=== PATIENT | female | born 1990 | race Caucasian/White ===

== ENCOUNTER 2017-02-10 16:16 | Emergency (ER) | payer OTHER ==
[2017-02-10 16:33] VITALS: RESP 18
[2017-02-10] MEDS ORDERED: ACETAMINOPHEN IV (For NPO) 1,000 MG in EMPTY BAG 1 BAG IVPB STA (16:43)
[2017-02-10] MEDS ORDERED: SODIUM CHLORIDE 0.9% 500 ML IV ONE (16:44)
[2017-02-10 16:45] LABS: Glucose,Whole Blood 60 mg/dL (75-99)
[2017-02-10 16:45] LABS: Glucose,Whole Blood 64 mg/dL (75-99)
[2017-02-10] MEDS ORDERED: SODIUM CHLORIDE 0.9% 1,000 ML IV ONE ×3 (16:51→19:35)
--- NOTE | 2017-02-10 16:57 | ED ---
General Adult HPI - General Chief complaint: Recheck/Abnormal Lab/Rx Stated complaint: Hyperglycemia Time Seen by Provider: 02/10/17 16:37 Source: patient Mode of arrival: ambulatory - History of Present Illness Initial comments: 26-year-old female patient past medical history of type 1 diabetes mellitus presents to emergency department for concerns of possible DKA. Patient states that she has been sick for 2 days with upper respiratory symptoms including sore throat, persistent cough, and nasal drainage. Patient states that today she has taken her blood sugar and her monitor read high multiple times. Patient states that she did increased dosage of insulin on her insulin pump, but her sugar remained elevated over 500. Patient also has been nauseated today with two episodes of vomiting. Patient is currently febrile, she was unaware that she had a fever, but states that she has had chills. Son is currently ill with similar upper respiratory symptoms. Patient states that she does have some chest pain and upper back pain with cough. She denies any abdominal pain, constipation, diarrhea, hematuria, dysuria, urgency or frequency. - Related Data Home Medications Medication Instructions Recorded Confirmed D-Methorphan/PE/Acetaminophen 1 tab PO DAILY PRN 02/10/17 02/10/17 [Tylenol Cold Max Day Caplet] Ibuprofen [Motrin] 200 - 400 mg PO Q6HR PRN 02/10/17 02/10/17 Insulin Aspart (For Pump) [NovoLOG 0.01 unit SQ-PUMP CONTINUOUS 02/10/17 (For Pump)] guaiFENesin [Mucinex] 600 mg PO BID PRN 02/10/17 02/10/17 Previous Rx's Medication Instructions Recorded Ondansetron Odt [Zofran Odt] 4 mg PO Q8HR PRN #10 tab 02/10/17 Oseltamivir [Tamiflu] 75 mg PO Q12HR #10 cap 02/10/17 Allergies Allergy/AdvReac Type Severity Reaction Status Date / Time No Known Allergies Allergy Verified 02/10/17 17:05 Review of Systems ROS Statement: Those systems with pertinent positive or pertinent negative responses have been documented in the HPI. ROS Other: All systems not noted in ROS Statement are negative. Past Medical History Past Medical History: Diabetes Mellitus, Hyperlipidemia, Hypertension Additional Past Medical History / Comment(s): divertulitis, ovarian cysts, migraines History of Any Multi-Drug Resistant Organisms: None Reported Past Surgical History: Section Past Psychological History: ADD/ADHD, Anxiety Smoking Status: Never smoker Past Alcohol Use History: None Reported Past Drug Use History: None Reported General Exam Limitations: no limitations General appearance: alert, in no apparent distress Head exam: Present: atraumatic, normocephalic Eye exam: Present: normal appearance, PERRL, EOMI. Absent: scleral icterus, conjunctival injection, nystagmus Pupils: Present: normal accommodation ENT exam: Present: normal exam, mucous membranes moist, TM's normal bilaterally , normal external ear exam. Absent: normal oropharynx (Pharyngeal erythema, tonsils hypertrophied), mucous membranes dry Neck exam: Present: normal inspection, full ROM. Absent: tenderness, meningismus, lymphadenopathy, thyromegaly Respiratory exam: Present: normal lung sounds bilaterally. Absent: respiratory distress, wheezes, rales, rhonchi, stridor, chest wall tenderness, accessory muscle use Cardiovascular Exam: Present: normal rhythm, tachycardia, normal heart sounds. Absent: irregular rhythm, systolic murmur, diastolic murmur, rubs, gallop, clicks GI/Abdominal exam: Present: soft, normal bowel sounds. Absent: distended, tenderness, guarding, rebound, rigid, organomegaly, mass, hernia Extremities exam: Present: normal inspection Back exam: Present: normal inspection. Absent: CVA tenderness (R), CVA tenderness (L) Neurological exam: Present: alert, oriented X3 Psychiatric exam: Present: normal affect, normal mood Skin exam: Present: warm, dry, intact Course Vital Signs 02/10/17 02/10/17 02/10/17 16:28 17:49 18:42 Temperature 102.3 F H 101.1 F H Pulse Rate 151 H 130 H 126 H Respiratory 18 18 18 Rate Blood Pressure 102/65 146/63 O2 Sat by Pulse 98 98 Oximetry EKG Findings - EKG Comments: EKG Findings:: EKG obtained at 1935 reveals sinus tachycardia with a ventricular rate of 126, IA interval 130, QRS duration 80, QT 310, QTc 448. No ST elevation or depression. Medical Decision Making - Medical Decision Making 26-year-old female patient presented to emergency department today for concerns of hyperglycemia, and upper respiratory symptoms. During her visit she was found to be febrile and is found to have hypoglycemia due to self correction with insulin pump, was given juice and snacks and repeat glucose monitoring performed. Most recent blood sugar was 197. Patient serum lab's were unremarkable, acetone negative. Patient was positive for influenza B. Temperature and vital signs improved. Patient was given additional fluids and ibuprofen Patient will be discharged home with a prescription for Tamiflu. Directions for close monitoring of blood sugar. Patient instructed to follow up with her primary care provider tomorrow for a recheck. Patient verbalizes understanding and agrees this plan. - Lab Data Result diagrams: 02/10/17 17:15 02/10/17 17:15 Lab Results 02/10/17 02/10/17 02/10/17 Range/Units 16:39 16:40 17:12 WBC (3.8-10.6) k/uL RBC (3.80-5.40) m/uL Hgb (11.4-16.0) gm/dL Hct (34.0-46.0) % MCV (80.0-100.0) fL MCH (25.0-35.0) pg MCHC (31.0-37.0) g/dL RDW (11.5-15.5) % Plt Count (150-450) k/uL Neutrophils % % Lymphocytes % % Monocytes % % Eosinophils % % Basophils % % Neutrophils # (1.3-7.7) k/uL Lymphocytes # (1.0-4.8) k/uL Monocytes # (0-1.0) k/uL Eosinophils # (0-0.7) k/uL Basophils # (0-0.2) k/uL Sodium (137-145) mmol/L Potassium (3.5-5.1) mmol/L Chloride (98-107) mmol/L Carbon Dioxide (22-30) mmol/L Anion Gap mmol/L BUN (7-17) mg/dL Creatinine (0.52-1.04) mg/dL Est GFR (MDRD) Af Amer (>60 ml/min/1.73 sqM) Est GFR (MDRD) Non-Af (>60 ml/min/1.73 sqM) Glucose (74-99) mg/dL POC Glucose (mg/dL) 60 L 64 L 57 L (75-99) mg/dL POC Glu Mac Operator Deena Sibleyer, Deena Vinicius, Deena Calcium (8.4-10.2) mg/dL Total Bilirubin (0.2-1.3) mg/dL AST (14-36) U/L ALT (9-52) U/L Alkaline Phosphatase (38-126) U/L Total Protein (6.3-8.2) g/dL Albumin (3.5-5.0) g/dL Urine Color Urine Appearance (Clear) Urine pH (5.0-8.0) Ur Specific [place] (1.001-1.035) Urine Protein (Negative) Urine Glucose (UA) (Negative) Urine Ketones (Negative) Urine Blood (Negative) Urine Nitrate (Negative) Urine Bilirubin (Negative) Urine Urobilinogen (<2.0) mg/dL Ur Leukocyte Esterase (Negative) Urine RBC (0-5) /hpf Urine WBC (0-5) /hpf Ur Squamous Epith Cells (0-4) /hpf Urine Bacteria (None) /hpf Hyaline Casts (0-2) /lpf Urine Mucus (None) /hpf Acetone, Qual (Negative) Influenza Type A RNA (Not Detectd) Influenza Type B (PCR) (Not Detectd) 02/10/17 02/10/17 02/10/17 Range/Units 17:15 17:15 17:15 WBC 5.9 (3.8-10.6) k/uL RBC 4.56 (3.80-5.40) m/uL Hgb 14.2 (11.4-16.0) gm/dL Hct 43.6 (34.0-46.0) % MCV 95.7 (80.0-100.0) fL MCH 31.2 (25.0-35.0) pg MCHC 32.6 (31.0-37.0) g/dL RDW 12.1 (11.5-15.5) % Plt Count 318 (150-450) k/uL Neutrophils % 88 % Lymphocytes % 7 % Monocytes % 5 % Eosinophils % 0 % Basophils % 1 % Neutrophils # 5.1 (1.3-7.7) k/uL Lymphocytes # 0.4 L (1.0-4.8) k/uL Monocytes # 0.3 (0-1.0) k/uL Eosinophils # 0.0 (0-0.7) k/uL Basophils # 0.0 (0-0.2) k/uL Sodium 140 (137-145) mmol/L Potassium 4.1 (3.5-5.1) mmol/L Chloride 101 (98-107) mmol/L Carbon Dioxide 27 (22-30) mmol/L Anion Gap 12 mmol/L BUN 3 L (7-17) mg/dL Creatinine 0.69 (0.52-1.04) mg/dL Est GFR (MDRD) Af Amer >60 (>60 ml/min/1.73 sqM) Est GFR (MDRD) Non-Af >60 (>60 ml/min/1.73 sqM) Glucose 73 L (74-99) mg/dL POC Glucose (mg/dL) (75-99) mg/dL POC Glu Mac Operator ID Calcium 9.9 (8.4-10.2) mg/dL Total Bilirubin 0.4 (0.2-1.3) mg/dL AST 33 (14-36) U/L ALT 32 (9-52) U/L Alkaline Phosphatase 93 (38-126) U/L Total Protein 8.6 H (6.3-8.2) g/dL Albumin 4.6 (3.5-5.0) g/dL Urine Color Urine Appearance (Clear) Urine pH (5.0-8.0) Ur Specific [place] (1.001-1.035) Urine Protein (Negative) Urine Glucose (UA) (Negative) Urine Ketones (Negative) Urine Blood (Negative) Urine Nitrate (Negative) Urine Bilirubin (Negative) Urine Urobilinogen (<2.0) mg/dL Ur Leukocyte Esterase (Negative) Urine RBC (0-5) /hpf Urine WBC (0-5) /hpf Ur Squamous Epith Cells (0-4) /hpf Urine Bacteria (None) /hpf Hyaline Casts (0-2) /lpf Urine Mucus (None) /hpf Acetone, Qual Negative (Negative) Influenza Type A RNA Not Detected (Not Detectd) Influenza Type B (PCR) Detected H (Not Detectd) 02/10/17 02/10/17 02/10/17 Range/Units 17:20 17:44 18:31 WBC (3.8-10.6) k/uL RBC (3.80-5.40) m/uL Hgb (11.4-16.0) gm/dL Hct (34.0-46.0) % MCV (80.0-100.0) fL MCH (25.0-35.0) pg MCHC (31.0-37.0) g/dL RDW (11.5-15.5) % Plt Count (150-450) k/uL Neutrophils % % Lymphocytes % % Monocytes % % Eosinophils % % Basophils % % Neutrophils # (1.3-7.7) k/uL Lymphocytes # (1.0-4.8) k/uL Monocytes # (0-1.0) k/uL Eosinophils # (0-0.7) k/uL Basophils # (0-0.2) k/uL Sodium (137-145) mmol/L Potassium (3.5-5.1) mmol/L Chloride (98-107) mmol/L Carbon Dioxide (22-30) mmol/L Anion Gap mmol/L BUN (7-17) mg/dL Creatinine (0.52-1.04) mg/dL Est GFR (MDRD) Af Amer (>60 ml/min/1.73 sqM) Est GFR (MDRD) Non-Af (>60 ml/min/1.73 sqM) Glucose (74-99) mg/dL POC Glucose (mg/dL) 108 H 197 H (75-99) mg/dL POC Glu Mac Operator ID Vinicius Deena Lonnie Cecille Calcium (8.4-10.2) mg/dL Total Bilirubin (0.2-1.3) mg/dL AST (14-36) U/L ALT (9-52) U/L Alkaline Phosphatase (38-126) U/L Total Protein (6.3-8.2) g/dL Albumin (3.5-5.0) g/dL Urine Color Yellow Urine Appearance Cloudy H (Clear) Urine pH 6.0 (5.0-8.0) Ur Specific [place] 1.029 (1.001-1.035) Urine Protein 1+ H (Negative) Urine Glucose (UA) 1+ H (Negative) Urine Ketones Trace H (Negative) Urine Blood Negative (Negative) Urine Nitrate Negative (Negative) Urine Bilirubin Negative (Negative) Urine Urobilinogen <2.0 (<2.0) mg/dL Ur Leukocyte Esterase Negative (Negative) Urine RBC 1 (0-5) /hpf Urine WBC 3 (0-5) /hpf Ur Squamous Epith Cells 4 (0-4) /hpf Urine Bacteria Rare H (None) /hpf Hyaline Casts 3 H (0-2) /lpf Urine Mucus Occasional H (None) /hpf Acetone, Qual (Negative) Influenza Type A RNA (Not Detectd) Influenza Type B (PCR) (Not Detectd) 02/10/17 Range/Units 20:06 WBC (3.8-10.6) k/uL RBC (3.80-5.40) m/uL Hgb (11.4-16.0) gm/dL Hct (34.0-46.0) % MCV (80.0-100.0) fL MCH (25.0-35.0) pg MCHC (31.0-37.0) g/dL RDW (11.5-15.5) % Plt Count (150-450) k/uL Neutrophils % % Lymphocytes % % Monocytes % % Eosinophils % % Basophils % % Neutrophils # (1.3-7.7) k/uL Lymphocytes # (1.0-4.8) k/uL Monocytes # (0-1.0) k/uL Eosinophils # (0-0.7) k/uL Basophils # (0-0.2) k/uL Sodium (137-145) mmol/L Potassium (3.5-5.1) mmol/L Chloride (98-107) mmol/L Carbon Dioxide (22-30) mmol/L Anion Gap mmol/L BUN (7-17) mg/dL Creatinine (0.52-1.04) mg/dL Est GFR (MDRD) Af Amer (>60 ml/min/1.73 sqM) Est GFR (MDRD) Non-Af (>60 ml/min/1.73 sqM) Glucose (74-99) mg/dL POC Glucose (mg/dL) 235 H (75-99) mg/dL POC Glu Mac Operator ID Anger, Isabel Calcium (8.4-10.2) mg/dL Total Bilirubin (0.2-1.3) mg/dL AST (14-36) U/L ALT (9-52) U/L Alkaline Phosphatase (38-126) U/L Total Protein (6.3-8.2) g/dL Albumin (3.5-5.0) g/dL Urine Color Urine Appearance (Clear) Urine pH (5.0-8.0) Ur Specific [place] (1.001-1.035) Urine Protein (Negative) Urine Glucose (UA) (Negative) Urine Ketones (Negative) Urine Blood (Negative) Urine Nitrate (Negative) Urine Bilirubin (Negative) Urine Urobilinogen (<2.0) mg/dL Ur Leukocyte Esterase (Negative) Urine RBC (0-5) /hpf Urine WBC (0-5) /hpf Ur Squamous Epith Cells (0-4) /hpf Urine Bacteria (None) /hpf Hyaline Casts (0-2) /lpf Urine Mucus (None) /hpf Acetone, Qual (Negative) Influenza Type A RNA (Not Detectd) Influenza Type B (PCR) (Not Detectd) Disposition Clinical Impression: Hypoglycemia, Influenza B Disposition: HOME SELF-CARE Condition: Stable Instructions: Hypoglycemia in a Person with Diabetes (ED), Diabetic Hyperglycemia (ED), Influenza (ED) Additional Instructions: Take Tamiflu as directed. Increase fluids. Closely monitor blood sugars. Return for any new, worsening, or concerning symptoms. Prescriptions: Ondansetron Odt [Zofran Odt] 4 mg PO Q8HR PRN #10 tab PRN Reason: Nausea Oseltamivir [Tamiflu] 75 mg PO Q12HR #10 cap Referrals: Jevon Julian MD [Primary Care Provider] - 1-2 days Time of Disposition: 20:03
[2017-02-10 17:14] LABS: Glucose,Whole Blood 57 mg/dL (75-99)
[2017-02-10 17:42] LABS: Appearance,Urine Cloudy (Clear); Bacteria,Urine Rare /hpf; Bilirubin,Urine Negative (Negative); Glucose,Urine (UA) 1+ (Negative); Ketones,Urine Trace (Negative); Leukocyte Esterase,Urine Negative (Negative); Mucus,Urine Occasional /hpf; Nitrite,Urine Negative (Negative); Particle Count 5233; Protein,Urine 1+ (Negative); RBC,Urine 1 /hpf (0-5); Specific Gravity,Urine 1.029 (1.001-1.035); Squamous Epithelial Cell,Urine 4 /hpf (0-4); UA Billing (MACRO vs. MICRO) MICRO; Urobilinogen,Urine <2.0 mg/dL (<2.0); WBC,Urine 3 /hpf (0-5)
[2017-02-10 17:45] LABS: Glucose,Whole Blood 108 mg/dL (75-99)
[2017-02-10 17:52] LABS: Basophils % (A) 1 %; CH 32.6; CHCM 34.2; Eosinophils % (A) 0 %; HCT 43.6 % (34.0-46.0); HDW 2.27; HGB 14.2 gm/dL (11.4-16.0); Luc # (Auto) 0.04; Luc % (Auto) 1; Lymphocytes # (A) 0.4 k/uL (1.0-4.8); Lymphocytes % (A) 7 %; MCH 31.2 pg (25.0-35.0); MCHC 32.6 g/dL (31.0-37.0); MCV 95.7 fL (80.0-100.0); Mean Platelet Volume 6.6; Monocytes # (A) 0.3 k/uL (0-1.0); Monocytes % (A) 5 %; Neutrophils # (A) 5.1 k/uL (1.3-7.7); Neutrophils % (A) 88 %; RBC 4.56 m/uL (3.80-5.40); RDW 12.1 % (11.5-15.5); WBC 5.9 k/uL (3.8-10.6); WBC (Perox) 6.28
[2017-02-10 17:54] LABS: ALT 32 U/L (9-52); AST 33 U/L (14-36); Alkaline Phosphatase 93 U/L (38-126); Anion Gap 12 mmol/L; Blood Urea Nitrogen 3 mg/dL (7-17); Calcium 9.9 mg/dL (8.4-10.2); Carbon Dioxide 27 mmol/L (22-30); Chloride 101 mmol/L (98-107); Glucose 73 mg/dL (74-99); Non-African American GFR(MDRD) >60 (>60 ml/min/1.73 sqM); Potassium 4.1 mmol/L (3.5-5.1); Sodium 140 mmol/L (137-145); Total Bilirubin 0.4 mg/dL (0.2-1.3); Total Protein 8.6 g/dL (6.3-8.2)
[2017-02-10 18:35] LABS: Glucose,Whole Blood 197 mg/dL (75-99)
[2017-02-10] MEDS ORDERED: IBUPROFEN 600 MG TAB PO STA (18:40)
[2017-02-10] MEDS ORDERED: ONDANSETRON 4 MG/2 ML VIAL IVP STA (19:43)
[2017-02-10 20:08] LABS: Glucose,Whole Blood 235 mg/dL (75-99)
[2017-02-10 21:29] VITALS: BP 107/63; PULSE 119; TEMP 98.9
== END 2017-02-10 21:29 | disposition home or self-care (01) ==
LOC: EC 16:16
DX: E10.65 Type 1 diabetes mellitus with hyperglycemia (principal); J11.1 Influenza due to unidentified influenza virus with other respiratory manifestations; Z79.4 Long term (current) use of insulin
CPT/HCPCS: 36415; 93005; 80053; 82009; 85025; 81001; 87502; 96374; 96375; 96361; 99285; J2405; J0131

== ENCOUNTER 2017-02-11 09:45 | Inpatient (IN) | payer OTHER ==
[2017-02-11] MEDS ORDERED: OSELTAMIVIR 75 MG CAP PO STA (10:45)
[2017-02-11] MEDS ORDERED: SODIUM CHLORIDE 0.9% 1,000 ML IV STA ×2 (10:45)
[2017-02-11] MEDS ORDERED: KETOROLAC 30 MG/ML 1 ML VIAL IVP STA (10:46)
[2017-02-11] MEDS ORDERED: ACETAMINOPHEN IV (For NPO) 1,000 MG in EMPTY BAG 1 BAG IVPB ONE (10:46)
[2017-02-11] MEDS ORDERED: METOCLOPRAMIDE 5 MG/ML 2 ML VIAL IVP STA (10:46)
--- NOTE | 2017-02-11 11:32 | XR ---
EXAMINATION TYPE: XR chest 2V DATE OF EXAM: 02/11/2017 11:19 AM COMPARISON: Chest x-ray June HISTORY: Cough and flu symptoms TECHNIQUE: Frontal and lateral views of the chest are obtained. FINDINGS: There is retrocardiac increased density. No pneumothorax evident. Cardiomediastinal silhou ette shows a borderline cardiac size. Pulmonary vascularity and benito are within normal limits. IMPRESSION: Findings suggest left lower lobe pneumonia. Accentuation of cardiac size may be due to r otation. Follow-up suggested as indicated.
[2017-02-11] MEDS ORDERED: IPRATROPIUM-ALBUTEROL 3 ML NEB INHALATION STA (11:44)
[2017-02-11 12:21] LABS: HCG,Qualitative Serum Not Detected
[2017-02-11 12:22] LABS: Basophils % (A) 0 %; CH 32.3; CHCM 33.6; Eosinophils % (A) 0 %; HCT 38.1 % (34.0-46.0); HDW 2.28; HGB 12.4 gm/dL (11.4-16.0); Luc # (Auto) 0.03; Luc % (Auto) 1; Lymphocytes # (A) 0.5 k/uL (1.0-4.8); Lymphocytes % (A) 7 %; MCH 31.3 pg (25.0-35.0); MCHC 32.5 g/dL (31.0-37.0); MCV 96.3 fL (80.0-100.0); Mean Platelet Volume 6.6; Monocytes # (A) 0.2 k/uL (0-1.0); Monocytes % (A) 2 %; Neutrophils % (A) 89 %; RBC 3.96 m/uL (3.80-5.40); RDW 12.2 % (11.5-15.5); WBC 6.7 k/uL (3.8-10.6); WBC (Perox) 7.42
[2017-02-11 12:33] LABS: ALT 25 U/L (9-52); AST 24 U/L (14-36); Alkaline Phosphatase 72 U/L (38-126); Anion Gap 9 mmol/L; Blood Urea Nitrogen 3 mg/dL (7-17); Calcium 8.1 mg/dL (8.4-10.2); Carbon Dioxide 24 mmol/L (22-30); Chloride 105 mmol/L (98-107); Glucose 228 mg/dL (74-99); Non-African American GFR(MDRD) >60 (>60 ml/min/1.73 sqM); Sodium 138 mmol/L (137-145); Total Bilirubin 0.3 mg/dL (0.2-1.3); Total Protein 6.5 g/dL (6.3-8.2)
--- NOTE | 2017-02-11 13:13 | ED ---
Fever HPI - General Chief Complaint: Fever Stated Complaint: Flu Time Seen by Provider: 02/11/17 10:33 Source: patient, EMS Mode of arrival: EMS Limitations: no limitations - History of Present Illness Initial Comments: This 26-year-old white female presents with a complaint of having a fever, nausea vomiting, cough, and chest pain. She also has had a sore throat as well as nasal drainage. Her temperature was 103.3. She has had yellowish production with her cough. She tried Mucinex with Tylenol without any relief. She states that the chest pain occurs when she coughs or takes a deep breath and is in the midsternal region. She was seen yesterday and diagnosed with influenza B. She is discharged with prescription for Tamiflu but states she was unable to get it filled because the pharmacy was closed last night. She does present via EMS. She states that she felt very weak and was very dizzy and could not stand up. No other complaints or modifying factors. - Related Data Home Medications Medication Instructions Recorded Confirmed Insulin Aspart (For Pump) [NovoLOG 0.01 unit SQ-PUMP CONTINUOUS 02/10/17 (For Pump)] guaiFENesin [Mucinex] 600 mg PO BID PRN 02/10/17 02/11/17 Acetaminophen [Tylenol] 500 mg PO Q4-6H PRN 02/11/17 02/11/17 Allergies Allergy/AdvReac Type Severity Reaction Status Date / Time No Known Allergies Allergy Verified 02/11/17 10:53 Review of Systems ROS Statement: Those systems with pertinent positive or pertinent negative responses have been documented in the HPI. ROS Other: All systems not noted in ROS Statement are negative. Past Medical History Past Medical History: Diabetes Mellitus, Hyperlipidemia, Hypertension Additional Past Medical History / Comment(s): divertulitis, ovarian cysts, migraines History of Any Multi-Drug Resistant Organisms: None Reported Past Surgical History: Section Past Psychological History: ADD/ADHD, Anxiety Smoking Status: Never smoker Past Alcohol Use History: None Reported Past Drug Use History: None Reported General Exam - General Exam Comments Initial Comments: GENERAL: The patient is well nourished and well hydrated. VITAL SIGNS: Heart rate, blood pressure, respiratory rate reviewed as recorded in nurse's notes. EYES: Pupils are round and reactive. Extraocular movements are intact. No conjunctival / lid redness or swelling. ENT: No external evidence of injury, swelling, or ecchymosis. Airway is patent. Throat is clear. NECK: Nontender. No swelling or evidence of injury. No subcutaneous emphysema. Trachea is midline. No thyroid mass. HEART: Tachycardic heart rate. No murmur. Good peripheral pulses. LUNGS/CHEST: There is mild wheezing noted. There is mild tenderness upon palpation of the sternal region. ABDOMEN: Abdomen soft without tenderness. No palpable masses or organomegaly. No peritoneal signs. No abdominal wall swelling or ecchymosis. EXTREMITIES: No extremity tenderness. Normal muscle tone and function. No thoracolumbar tenderness. NEUROLOGIC: Sensation is grossly intact. Cranial nerve exam reveals face is symmetrical, tongue is midline, speech is clear. SKIN: No abrasions or ecchymosis is noted. No induration or masses noted. PSYCHIATRIC: Alert and oriented. Appropriate behavior and judgment. Limitations: no limitations Course Vital Signs 02/11/17 02/11/17 02/11/17 09:48 12:09 12:25 Temperature 103.3 F H Pulse Rate 122 H 112 H 112 H Respiratory 18 Rate Blood Pressure 134/75 O2 Sat by Pulse 100 Oximetry 02/11/17 12:28 Temperature 101.2 F H Pulse Rate 120 H Respiratory 18 Rate Blood Pressure 121/59 O2 Sat by Pulse 98 Oximetry Medical Decision Making - Medical Decision Making The patient was seen and examined. All diagnostics were reviewed. Old records are reviewed from yesterday. She did have a positive influenza B test. A chest x-ray was done today which shows evidence of a left lower lobe pneumonia. Blood glucose is elevated at 228. She did have some bronchospasm noted on exam. She receives a DuoNeb breathing treatment. IV fluids were administered. She also received some Toradol as well as some Ofirmev. She is still complaining of a sore throat as well as some pain in her chest and will be given some Dilaudid intravenously. Overall, it is felt as though she would require admission to the hospital for further treatment. The case will be discussed with internal medicine in the near future. Pneumonia is likely due to the influenza with possibility of bacterial etiology certainly is possible place her on some Levaquin intravenously as well. The case is discussed with Dr. Castro and he is agreeable to admission with Dr. Jackson from pulmonology to consult. - Lab Data Result diagrams: 02/11/17 11:43 02/11/17 11:43 Lab Results 02/11/17 02/11/17 Range/Units 11:43 11:43 WBC 6.7 (3.8-10.6) k/uL RBC 3.96 (3.80-5.40) m/uL Hgb 12.4 (11.4-16.0) gm/dL Hct 38.1 (34.0-46.0) % MCV 96.3 (80.0-100.0) fL MCH 31.3 (25.0-35.0) pg MCHC 32.5 (31.0-37.0) g/dL RDW 12.2 (11.5-15.5) % Plt Count 251 (150-450) k/uL Neutrophils % 89 % Lymphocytes % 7 % Monocytes % 2 % Eosinophils % 0 % Basophils % 0 % Neutrophils # 6.0 (1.3-7.7) k/uL Lymphocytes # 0.5 L (1.0-4.8) k/uL Monocytes # 0.2 (0-1.0) k/uL Eosinophils # 0.0 (0-0.7) k/uL Basophils # 0.0 (0-0.2) k/uL Sodium 138 (137-145) mmol/L Potassium 4.0 (3.5-5.1) mmol/L Chloride 105 (98-107) mmol/L Carbon Dioxide 24 (22-30) mmol/L Anion Gap 9 mmol/L BUN 3 L (7-17) mg/dL Creatinine 0.62 (0.52-1.04) mg/dL Est GFR (MDRD) Af Amer >60 (>60 ml/min/1.73 sqM) Est GFR (MDRD) Non-Af >60 (>60 ml/min/1.73 sqM) Glucose 228 H (74-99) mg/dL Calcium 8.1 L (8.4-10.2) mg/dL Total Bilirubin 0.3 (0.2-1.3) mg/dL AST 24 (14-36) U/L ALT 25 (9-52) U/L Alkaline Phosphatase 72 (38-126) U/L Total Protein 6.5 (6.3-8.2) g/dL Albumin 3.4 L (3.5-5.0) g/dL HCG, Qual Not Detected Acetone, Qual Negative (Negative) Disposition Clinical Impression: Influenza B, Diabetes, Hyperglycemia, Fever, Failure of outpatient treatment, Pneumonia, Nausea and vomiting, Dizziness, Chest pain, Bronchospasm Disposition: ADMITTED IP TO THIS [facility] Condition: Fair Time of Disposition: 13:17 Decision Date: 02/11/17 Decision Time: 13:17
[2017-02-11] MEDS ORDERED: LEVOFLOXACIN 750MG-D5W PMX 750 MG in DEXTROSE/WATER 1 150ML.BAG IVPB STA (13:14)
[2017-02-11] MEDS ORDERED: HYDROmorphone 1 MG/ML 1 ML SYRINGE IVP STA (13:14)
[2017-02-11] MEDS ORDERED: methylPREDNISolone SOD SUCCI 125 MG/2 ML VIAL IV STA (13:15)
[2017-02-11] MEDS ORDERED: NALOXONE 0.4 MG/ML 1 ML VIAL IV PRN (13:20)
[2017-02-11] MEDS ORDERED: HYDROmorphone 1 MG/ML 1 ML SYRINGE IV PRN (13:20)
[2017-02-11] MEDS ORDERED: Insulin Aspart (For Pump) 100 UNIT/ML VIAL SQ-PUMP SCH (13:30)
[2017-02-11 14:19] LABS: Appearance,Urine Clear (Clear); Bilirubin,Urine Negative (Negative); Glucose,Urine (UA) 4+ (Negative); Leukocyte Esterase,Urine Negative (Negative); Nitrite,Urine Negative (Negative); PH, Urine 5.5 (5.0-8.0); Protein,Urine Trace (Negative); Specific Gravity,Urine 1.028 (1.001-1.035); UA Billing (MACRO vs. MICRO) CHEM; Urobilinogen,Urine <2.0 mg/dL (<2.0)
[2017-02-11 14:23] LABS: Ketones,Urine 3+ (Negative)
[2017-02-11] MEDS: PANTOPRAZOLE 40 MG/10 ML VIAL IV SCH (14:44)
[2017-02-11] MEDS: ACETAMINOPHEN TAB 325 MG TAB PO PRN (15:38)
[2017-02-11] MEDS ORDERED: ALPRAZolam 0.25 MG TAB PO PRN (16:39)
[2017-02-11] MEDS ORDERED: INSPUCOR MISCELLANE PRN (17:08)
[2017-02-11] MEDS ORDERED: INSULIN LISPRO (humaLOG) 300 UNIT/3 ML VIAL SQ PRN (17:08)
[2017-02-11] MEDS ORDERED: methylPREDNISolone SOD SUCCI 125 MG/2 ML VIAL IV SCH (18:00)
[2017-02-11 18:11] LABS: Glucose,Whole Blood 199 mg/dL (75-99)
[2017-02-11] MEDS: INSULIN PUMP BASAL RATES 1 EACH MISC MISCELLANE PRN ×2 (18:28→21:45)
[2017-02-11] MEDS: IPRATROPIUM-ALBUTEROL 3 ML NEB INHALATION SCH ×3 (19:14→23:35)
[2017-02-11 20:56] LABS: Glucose,Whole Blood 188 mg/dL (75-99)
[2017-02-11] MEDS ORDERED: TEMAZEPAM 15 MG CAP PO PRN (21:00)
[2017-02-11] MEDS: methylPREDNISolone SOD SUCCI 40 MG/ML 1 ML VIAL IV SCH (21:53)
[2017-02-11] MEDS: HYDROcodone/APAP 5-325MG 1 EACH TAB PO PRN (21:58)
[2017-02-11 22:40] LABS: Hemoglobin A1C 8.3 % (4.2-6.1)
[2017-02-11] MEDS: SODIUM CHLORIDE 0.9% 1,000 ML IV SCH (23:06)
--- NOTE | 2017-02-11 23:27 | HP ---
DATE OF ADMISSION: 02/11/2017 CHIEF COMPLAINTS: Vomiting and nausea, cough, fever HISTORY OF PRESENT ILLNESS: This 26-year-old woman with a past medical history of multiple medical problems, including history of diabetes mellitus, type 1, history of hyperlipidemia, hypertension, sleep apnea, history of section, ADHD, anxiety, CVA/TIA, being followed by Dr. Juilan in the outpatient setting, was not feeling well over the past several days; at least 4 days. The patient apparently lives with her 8-year-old son. The patient had cough and fever and the symptoms. The patient came to [facility] last night and was diagnosed with influenza B. Tamiflu prescription was done, but patient could not fill the prescription. The patient is complaining of vomiting and inability to keep anything down. Patient also has cough and some shortness of breath with deep breaths. Because of multiple symptomatology, patient came to [facility] and was admitted for further evaluation and treatment. There is no history of any headache, loss of consciousness, seizures at this time. The patient has an insulin pump. In the ER, the patient was also suspected to have left lower pneumonia. PAST MEDICAL HISTORY: 1. CVA, TIA. 2. Diabetes mellitus, type 1. 3. Hyperlipidemia. 4. Hypertension. 5. Sleep apnea. 6. History of ADD, ADHD. 7. Anxiety. MEDICATIONS PRIOR TO ADMISSION: 1. Tylenol 500 mg q.6 p.r.n. 2. Mucinex 600 mg daily. 3. Insulin pump. ALLERGIES: NONE. FAMILY HISTORY: History of diabetes mellitus in the family. SOCIAL HISTORY: History of occasional alcohol intake. No history of smoking. REVIEW OF SYSTEMS: ENT: No diminished vision. No diminished hearing. CARDIOVASCULAR SYSTEM: No angina, palpitations. RESPIRATORY SYSTEM: No cough, hemoptysis. GI: No nausea. : No dysuria. NERVOUS SYSTEM: As mentioned earlier. ALLERGY/IMMUNOLOGY: No asthma or hayfever. MUSCULOSKELETAL: As mentioned earlier. HEMATOLOGY/ONCOLOGY: No history of anemia. ENDOCRINE: As mentioned earlier. CONSTITUTIONAL: As mentioned earlier. DERMATOLOGY: Negative. RHEUMATOLOGY: Negative. PSYCHIATRY: As mentioned earlier. PHYSICAL EXAMINATION: Patient is alert and oriented x3. Pulse of 118. Blood pressure 104/56, respiration 18, temperature 101.1, pulse ox 94% on 2 L. HEENT: Conjunctivae normal. NECK: No jugular venous distention. No carotid bruit. No lymph node enlargement. CARDIOVASCULAR: S1 and S2 muffled. No S3. No S4. RESPIRATORY SYSTEM: Breath sounds diminished at the bases. Scattered rhonchi. Expiratory rhonchi and crackles also heard. No bronchial breath sounds heard. ABDOMEN: Soft, nontender. No mass palpable. LEGS: No edema. No swelling. NERVOUS SYSTEM: Higher functions as mentioned earlier. Moves all 4 limbs. No focal motor or sensory deficit. LYMPHATICS: No lymph node palpable in neck, axillae or groin. SKIN: No ulcer, rash, bleeding. JOINTS: No active deforming arthropathy. LABS: WBC 6.6. Hemoglobin is 12.4. Glucose 228. Calcium is 8.1. Albumin 3.4. UA noted; 3+ ketones. ASSESSMENT: 1. Acute influenza B with left lower pneumonia, possibly Gram-negative with sepsis, present on admission. 2. Diabetes mellitus, type 1, uncontrolled. 3. History of insulin pump. 4. Hypoalbuminemia, mild. 5. Acute anemia. 6. Incessant vomiting and inability to keep anything down with acute gastritis. 7. History of cerebrovascular accident, transient ischemic attack. 8. Hypertension. 9. Hyperlipidemia. 10. Sleep apnea. 11. History of migraines. 12. History of obstructive sleep apnea. 13. History of degenerative joint disease. 14. History of section. 15. History of ADD, ADHD. 16. Anxiety. RECOMMENDATIONS AND DISCUSSION: In this 26-year-old woman who presented with multiple complex medical issues, at this time I recommend to continue current medications, continue to monitor, symptomatic treatment. Otherwise, at this time I would recommend broad-spectrum IV antibiotics, Tamiflu, IV fluids. Keep n.p.o. except medications. DVT prophylaxis. I would also recommend consultation with Dr. Jackson. Steroids will be tapered fast. Prognosis guarded because of the multiple complex medical issues. Further recommendations to follow. A copy of this dictation is being forwarded to Dr. Julian, who is the primary physician. See orders for further details. MTDD
[2017-02-12] MEDS: KETOROLAC 30 MG/ML 1 ML VIAL IVP PRN ×3 (00:46→20:29)
[2017-02-12] MEDS: HYDROcodone/APAP 5-325MG 1 EACH TAB PO PRN (02:30)
[2017-02-12 02:41] LABS: Glucose,Whole Blood 248 mg/dL (75-99)
[2017-02-12] MEDS: IPRATROPIUM-ALBUTEROL 3 ML NEB INHALATION SCH ×6 (03:19→23:16)
[2017-02-12 06:49] LABS: Anion Gap 10 mmol/L; Blood Urea Nitrogen 6 mg/dL (7-17); Carbon Dioxide 20 mmol/L (22-30); Chloride 106 mmol/L (98-107); Glucose 193 mg/dL (74-99); Non-African American GFR(MDRD) >60 (>60 ml/min/1.73 sqM); Sodium 136 mmol/L (137-145)
[2017-02-12 06:54] LABS: Basophils % (A) 0 %; CH 31.9; CHCM 31.9; Eosinophils % (A) 0 %; HCT 35.5 % (34.0-46.0); HDW 2.28; HGB 11.2 gm/dL (11.4-16.0); Luc # (Auto) 0.03; Luc % (Auto) 0; Lymphocytes # (A) 0.7 k/uL (1.0-4.8); Lymphocytes % (A) 6 %; MCH 31.7 pg (25.0-35.0); MCHC 31.7 g/dL (31.0-37.0); MCV 100.2 fL (80.0-100.0); Mean Platelet Volume 6.9; Monocytes # (A) 0.1 k/uL (0-1.0); Monocytes % (A) 1 %; Neutrophils # (A) 9.6 k/uL (1.3-7.7); Neutrophils % (A) 92 %; RBC 3.54 m/uL (3.80-5.40); RDW 12.2 % (11.5-15.5); WBC 10.5 k/uL (3.8-10.6); WBC (Perox) 11.38
[2017-02-12 07:10] LABS: Glucose,Whole Blood 180 mg/dL (75-99)
[2017-02-12] MEDS: SODIUM CHLORIDE 0.9% 1,000 ML IV SCH ×3 (08:57→22:41)
[2017-02-12] MEDS: ENOXAPARIN 40 MG/0.4 ML SYRINGE SQ SCH (09:18)
[2017-02-12] MEDS: PANTOPRAZOLE 40 MG/10 ML VIAL IV SCH (09:18)
[2017-02-12] MEDS: methylPREDNISolone SOD SUCCI 40 MG/ML 1 ML VIAL IV SCH (09:18)
[2017-02-12 09:21] LABS: Glucose,Whole Blood 193 mg/dL (75-99)
[2017-02-12] MEDS ORDERED: INSULIN PUMP TARGET GLUCOSE 1 EACH MISC MISCELLANE PRN (10:52)
[2017-02-12] MEDS ORDERED: INSULIN PUMP ACTIVE INSULIN 1 EACH MISC MISCELLANE PRN (10:52)
[2017-02-12] MEDS ORDERED: INSPUCOR MISCELLANE PRN (10:52)
[2017-02-12 12:06] LABS: Glucose,Whole Blood 253 mg/dL (75-99)
--- NOTE | 2017-02-12 12:23 | P.CNPUL ---
History of Present Illness Consult date: 02/12/17 Reason for consult: dyspnea History of present illness: 26-year-old female patient, obese, with a type 1 diabetes mellitus currently on insulin pump, in addition to a previous history of hypertension hyperlipidemia and obstructive sleep apnea, was admitted to the hospital because of generalized weakness, cough and chest congestion and increased dyspnea, chills and body aches and fever that evolved over the past 48-72 hours. The patient had a son at home was suffering from respiratory checked infection and he was also having an acute febrile illness. However his condition was mild and he recovered. Since then the patient started feeling sick with above-mentioned constitutions symptoms and progressive addition to most dyspnea and cough and congestion to the point where she was becoming very uncomfortable and she came into the hospital. Chest x-ray showed left lower lobe pulmonary infiltrates/ pneumonia. Influenza screen was positive for influenza B. The patient was placed on oxygen and overnight she was placed on high flow oxygen 10 L per minute nasal cannula. She has still on high flow oxygen and her pulse ox is 91- 92%. She did develop some mild epistaxis overnight and her oxygen source is humidified. No change in mental status. No headache. No neck stiffness. No diarrhea. She did have some nausea and limited emesis earlier which recovered. She feels better compared to yesterday however she still has a congested cough and she is still requiring high flow oxygen. Levaquin was also added as an empiric antibiotic coverage. She is a nonsmoker. No travel history. No aspiration. No previous bouts of pneumonias. No other complaints otherwise. Review of Systems Further review of system was done and the positive findings are almost above in history of present illness Past Medical History Past Medical History: CVA/TIA, Diabetes Mellitus, Hyperlipidemia, Hypertension, Sleep Apnea/CPAP/BIPAP Additional Past Medical History / Comment(s): IDDM type I-on insulin pump, DKA, divertulitis, ovarian cysts, migraines, TIAs in 2008-none since, BLADIMIR with no CPAP use, heart murmur, back pain, UTI, past L ankle fx and L foot little toe fx. History of Any Multi-Drug Resistant Organisms: None Reported Past Surgical History: Section Additional Past Surgical History / Comment(s): [place] teeth extractions. Past Anesthesia/Blood Transfusion Reactions: No Reported Reaction, Motion Sickness Past Psychological History: ADD/ADHD, Anxiety Additional Psychological History / Comment(s): Pt lives with her 8 yr old son. She is independent. Smoking Status: Never smoker Past Alcohol Use History: Occasional Additional Past Alcohol Use History / Comment(s): 1 glass of wine a week. Past Drug Use History: None Reported - Past Family History Father Family Medical History: Diabetes Mellitus Additional Family Medical History / Comment(s): Father of diabetic complications. Mother Family Medical History: No Reported History Medications and Allergies Home Medications Medication Instructions Recorded Confirmed Type Insulin Aspart (For Pump) [NovoLOG 0.01 unit SQ-PUMP CONTINUOUS 02/10/17 History (For Pump)] guaiFENesin [Mucinex] 600 mg PO BID PRN 02/10/17 02/11/17 History Acetaminophen [Tylenol] 500 mg PO Q4-6H PRN 02/11/17 02/11/17 History Allergies Allergy/AdvReac Type Severity Reaction Status Date / Time No Known Allergies Allergy Verified 02/11/17 10:53 Physical Exam Vitals: Vital Signs Temp Pulse Pulse Pulse Resp BP BP 02/12/17 11:27 85 02/12/17 11:14 85 02/12/17 08:23 97.6 F 98 24 108/66 02/12/17 07:46 96 02/12/17 07:33 84 02/12/17 04:00 87 16 02/12/17 03:30 103 H 02/12/17 03:15 100 02/12/17 02:30 99.2 F 98 20 02/12/17 01:10 24 02/12/17 01:00 108 H 24 02/12/17 00:15 101.1 F H 120 H 24 115/65 02/11/17 23:39 88 02/11/17 23:30 88 02/11/17 20:00 98.2 F 100 24 111/69 02/11/17 19:38 100 02/11/17 19:27 96 02/11/17 14:59 97.5 F L 102 H 18 107/59 02/11/17 14:03 100.1 F H 118 H 18 104/56 Pulse Ox 02/12/17 11:27 02/12/17 11:14 02/12/17 08:23 98 02/12/17 07:46 02/12/17 07:33 91 L 02/12/17 04:00 97 02/12/17 03:30 02/12/17 03:15 02/12/17 02:30 100 02/12/17 01:10 95 02/12/17 01:00 86 L 02/12/17 00:15 88 L 02/11/17 23:39 02/11/17 23:30 02/11/17 20:00 92 L 02/11/17 19:38 02/11/17 19:27 02/11/17 14:59 97 02/11/17 14:03 94 L Intake and Output 02/11/17 02/12/17 02/12/17 22:59 06:59 14:59 Intake Total 400 Output Total 200 550 Balance 200 -550 Intake: Oral 400 Output: Urine 200 550 Other: Voiding Method Toilet # Voids 1 Weight 74.8 kg Head exam was generally normal. There was no scleral icterus or corneal arcus. Mucous membranes were moist. My normal neck the patient has significant crowding of the posterior oropharynx. No goiter or neck masses. No thrush. Lungs sounds are diminished bilaterally along with some bibasilar crackles worse on the left. There is some scattered rhonchi and wheezes in addition.Cardiac exam revealed the PMI to be normally situated and sized. The rhythm was regular and no extrasystoles were noted during several minutes of auscultation. The first and second heart sounds were normal and physiologic splitting of the second heart sound was noted. There were no murmurs, rubs, clicks, or gallops.Abdominal exam revealed normal bowel sounds. The abdomen was soft, non-tender, and without masses, organomegaly, or appreciable enlargement of the abdominal aorta.Examination of the extremities revealed easily palpable radial, femoral and pedal pulses. There was no cyanosis, clubbing or edema. Results - Laboratory Findings CBC and BMP: 02/12/17 06:14 02/12/17 06:14 Abnormal lab findings: Abnormal Labs 02/11/17 02/11/17 02/11/17 13:52 17:48 20:54 RBC Hgb MCV Neutrophils # Lymphocytes # Sodium Carbon Dioxide BUN Creatinine Glucose POC Glucose (mg/dL) 199 H 188 H Calcium Urine Protein Trace H Urine Glucose (UA) 4+ H Urine Ketones 3+ H 03/02/12/17 02/12/17 02:27 06:14 06:14 RBC 3.54 L Hgb 11.2 L MCV 100.2 H Neutrophils # 9.6 H Lymphocytes # 0.7 L Sodium 136 L Carbon Dioxide 20 L BUN 6 L Creatinine 0.40 L Glucose 193 H POC Glucose (mg/dL) 248 H Calcium 8.0 L Urine Protein Urine Glucose (UA) Urine Ketones 02/12/17 02/12/17 02/12/17 07:07 09:14 12:04 RBC Hgb MCV Neutrophils # Lymphocytes # Sodium Carbon Dioxide BUN Creatinine Glucose POC Glucose (mg/dL) 180 H 193 H 253 H Calcium Urine Protein Urine Glucose (UA) Urine Ketones - Diagnostic Findings Chest x-ray: image reviewed Assessment and Plan Plan: Assessment 1 acute pneumonia bibasilar worse on the left. Rule out acute viral influenza and pneumonia. Rule out superimposed bacterial pneumonia. 2 acute hypoxic respiratory failure secondary to above. The patient is requiring high flow oxygen 10 L per minute nasal cannula 3 CVA/TIA, history of 4 Diabetes mellitus type 1 maintained on insulin drip on outpatient basis. The patient had developed some steroid-induced hyperglycemia and the insulin pump was initiated during this current hospitalization. 5 hyperlipidemia 6 hypertension 7 ADHD 8 obstructive sleep apnea, not receiving any CPAP therapy at this point. Plan Agree on the current plan. Watch the blood sugars and consider regular insulin drip if the patient developed significant steroid-induced hyperglycemia. Meanwhile continue the Levaquin and Tamiflu. Repeat chest x-ray with the next 24 hours. May need to chest with the patient in ICU and his progressively worsening in her oxygenation status. Despite her hypoxemia, the patient is not having any significant respiratory distress. She is not using accessory muscles of breathing and she is able to communicate without tachypnea or distress. We'll continue to follow. Follow-up chest x-ray in a.m. Meanwhile, we'll try to obtain a sputum sample for Gram stain and culture. Lovenox for DVT prophylaxis.
[2017-02-12] MEDS ORDERED: INSULIN PUMP MEAL BOLUS 1 UNIT MISC MISCELLANE SCH (12:30)
[2017-02-12] MEDS ORDERED: INSULIN REGULAR 100 UNIT in SODIUM CHLORIDE 0.9% 100 ML IV SCH (12:45)
[2017-02-12] MEDS: ACETAMINOPHEN TAB 325 MG TAB PO PRN (13:46)
[2017-02-12 13:47] LABS: Glucose,Whole Blood 235 mg/dL (75-99)
[2017-02-12] MEDS: LEVOFLOXACIN 750MG-D5W PMX 750 MG in DEXTROSE/WATER 1 150ML.BAG IVPB SCH (14:08)
--- NOTE | 2017-02-12 14:17 | XR ---
EXAMINATION TYPE: XR chest 1V portable DATE OF EXAM: 02/12/2017 2:13 PM CLINICAL HISTORY: Difficulty breathing and pneumonia progress study. TECHNIQUE: Single AP portable upright view of the chest is obtained. COMPARISON: Chest x-ray from one day earlier FINDINGS: Since prior exam there is new bibasilar opacity silhouetting the hemidiaphragms consistent with small bilateral pleural effusions and associated bibasilar atelectasis and/or infiltrate. New m ild central vascular congestion is felt present. Cardiac silhouette size is stable and upper limits o f normal. Upper lungs are clear without pneumothorax. Osseous structures are intact. IMPRESSION: Worsening bibasilar infiltrate and/or atelectasis with suspected new small bilateral pleu ral effusions and mild central vascular congestion, consider fluid overload state and/or multilobar p neumonia progression.
[2017-02-12 14:35] LABS: Glucose,Whole Blood 182 mg/dL (75-99)
--- NOTE | 2017-02-12 15:29 | PN ---
DATE OF SERVICE: 02/12/2017 This 26-year-old woman was admitted with acute influenza B with a significant gastrointestinal also had features of acute respiratory failure and the blood sugar is also elevated. Patient is also using insulin pump at this time. The patient needed a Ventimask to adequate oxygen saturation at this time. Patient is also complaining of some cough also. PAST MEDICAL HISTORY: Reviewed. REVIEW OF SYSTEMS: CARDIOVASCULAR SYSTEM: As mentioned earlier. RESPIRATORY: As mentioned earlier. GI: No nausea. ENDOCRINE: As mentioned earlier. Current medications are reviewed and include: 1. Tylenol 650 q.6 p.r.n. 2. Two Buttes 5 mg q.4 p.r.n. 3. DuoNeb q.i.d. and p.r.n. 4. Xanax 0.25 t.i.d. 5. Lovenox 40 mg subQ daily. 6. Mucinex 600 mg p.o. b.i.d. 7. Dilaudid 0.5 mg q.4 p.r.n. 8. Humalog scale. 9. Toradol. 10. Levaquin 750 IV daily. 11. Solu-Medrol 40 IV t.i.d. 12. Insulin. 13. Zofran. 14. Protonix. PHYSICAL EXAMINATION: Patient is alert and oriented x3. Pulse 116, blood pressure 120/64, respirations 20, temperature 98.6, pulse ox 100% on Ventimask on 10 L. HEENT: Conjunctivae normal. NECK: No jugular venous distension, muffled. RESPIRATORY: Breath sounds diminished at the bases. Bilateral scattered rhonchi, no crackles. Abdomen is soft, obese, nontender. No mass palpable. EXTREMITIES: Legs no edema, no swelling. NERVOUS SYSTEM: Higher function as mentioned earlier, moves all 4 limbs, no focal deficits. LYMPHATICS: No lymph node enlargement in the neck, axillae or groin. SKIN: No ulcer, rash or bleeding. LABS: Hemoglobin 11.2, MCV 100.2, sodium 136, Accu-Cheks noted. ASSESSMENT: 1. Acute influenza B with left lobe pneumonia, possibly gram-negative sepsis and acute hypoxic respiratory failure, present on admission. 2. Diabetes mellitus type 1, uncontrolled. 3. Insulin pump. 4. Hypoalbuminemia, mild. 5. Anemia, macrocytic. 6. Hyponatremia. 7. Mild hypocalcemia. 8. Incessant vomiting, unable to keep anything down with acute gastritis. 9. History of cerebrovascular accident, transient ischemic attack. 10. Hypertension. 11. Hyperlipidemia. 12. History of sleep apnea history. 13. History of migraines. 14. History degenerative joint disease. 15. History of section. 16. History of ADD/ADHD. 17. Anxiety. 18. FULL CODE. 19. Obesity with a body mass index of 31.2. RECOMMENDATION: This is a 26-year-old woman who presented with multiple complex medical issues. Will monitor the patient closely. Continue with the current medications, continue with the symptomatic treatment. Continue with the bronchodilators. Continue with the rest of the medications, empiric antibiotics. Follow with Dr. Jackson, DVT prophylaxis. I would also recommend using insulin drip and control the blood sugars better. Otherwise, guarded prognosis because of multiple complex medical issues. Further recommendations to follow. Continue with the Tamiflu. See orders for continued IV fluids. Repeat chest x-ray. [facility]
[2017-02-12 15:31] LABS: Glucose,Whole Blood 173 mg/dL (75-99)
[2017-02-12] MEDS ORDERED: FUROSEMIDE 10 MG/ML 4 ML VIAL IV STA (16:17)
[2017-02-12 16:24] LABS: Glucose,Whole Blood 189 mg/dL (75-99)
[2017-02-12 16:45] LABS: ABG Base Excess -4.7 mmol/L; ABG HCO3 19 mmol/L (21-25); ABG PCO2 29 mmHg (35-45); ABG PH 7.43 (7.35-7.45); ABG PO2 62 mmHg (83-108); ABG TCO2 20 mmol/L (19-24)
[2017-02-12] MEDS: INSULIN REGULAR 100 UNIT in SODIUM CHLORIDE 0.9% 100 ML IV SCH (16:55)
[2017-02-12 17:00] LABS: Glucose,Whole Blood 214 mg/dL (75-99)
[2017-02-12] MEDS ORDERED: INSULIN LISPRO (humaLOG) 300 UNIT/3 ML VIAL SQ SCH (17:30)
[2017-02-12 18:20] LABS: Glucose,Whole Blood 205 mg/dL (75-99)
[2017-02-12] MEDS: methylPREDNISolone SOD SUCCI 125 MG/2 ML VIAL IV SCH ×2 (19:11→23:12)
[2017-02-12 19:12] LABS: Glucose,Whole Blood 154 mg/dL (75-99)
[2017-02-12] MEDS: LORazepam 2 MG/ML SYRINGE IV PRN (19:36)
[2017-02-12 20:22] LABS: Glucose,Whole Blood 156 mg/dL (75-99)
[2017-02-12 20:59] LABS: Glucose,Whole Blood 155 mg/dL (75-99)
[2017-02-12] MEDS: CEFTAROLINE FOSAMIL 600 MG in SODIUM CHLORIDE 0.9% 250 ML IVPB SCH (21:34)
[2017-02-12 22:04] LABS: Glucose,Whole Blood 157 mg/dL (75-99)
[2017-02-12] MEDS: ONDANSETRON 4 MG/2 ML VIAL IVP PRN (22:40)
[2017-02-12 23:09] LABS: Glucose,Whole Blood 112 mg/dL (75-99)
[2017-02-13 00:02] LABS: Glucose,Whole Blood 175 mg/dL (75-99)
[2017-02-13 01:09] LABS: Glucose,Whole Blood 154 mg/dL (75-99)
[2017-02-13 02:14] LABS: Glucose,Whole Blood 129 mg/dL (75-99)
[2017-02-13 03:19] LABS: Glucose,Whole Blood 209 mg/dL (75-99)
[2017-02-13] MEDS: ONDANSETRON 4 MG/2 ML VIAL IVP PRN ×2 (03:19→18:14)
[2017-02-13] MEDS: IPRATROPIUM-ALBUTEROL 3 ML NEB INHALATION SCH ×6 (04:06→23:50)
[2017-02-13 04:28] LABS: Glucose,Whole Blood 169 mg/dL (75-99)
[2017-02-13 04:29] LABS: Basophils % (A) 0 %; CH 32.3; Eosinophils % (A) 0 %; HCT 36.1 % (34.0-46.0); HDW 2.36; HGB 11.5 gm/dL (11.4-16.0); Luc # (Auto) 0.03; Luc % (Auto) 0; Lymphocytes # (A) 0.7 k/uL (1.0-4.8); Lymphocytes % (A) 6 %; MCH 31.2 pg (25.0-35.0); MCHC 31.7 g/dL (31.0-37.0); MCV 98.2 fL (80.0-100.0); Mean Platelet Volume 6.7; Monocytes # (A) 0.1 k/uL (0-1.0); Monocytes % (A) 1 %; Neutrophils # (A) 12.3 k/uL (1.3-7.7); Neutrophils % (A) 93 %; RBC 3.68 m/uL (3.80-5.40); RDW 12.5 % (11.5-15.5); WBC 13.3 k/uL (3.8-10.6); WBC (Perox) 13.69
[2017-02-13 04:37] LABS: Anion Gap 9 mmol/L; Blood Urea Nitrogen 11 mg/dL (7-17); Calcium 8.1 mg/dL (8.4-10.2); Carbon Dioxide 24 mmol/L (22-30); Chloride 106 mmol/L (98-107); Glucose 186 mg/dL (74-99); Non-African American GFR(MDRD) >60 (>60 ml/min/1.73 sqM); Potassium 3.5 mmol/L (3.5-5.1); Sodium 139 mmol/L (137-145)
[2017-02-13 04:52] LABS: Magnesium 1.8 mg/dL (1.6-2.3)
[2017-02-13] MEDS ORDERED: Phosphorus Replacement Protoco 1 EACH MISC MISCELLANE PRN (05:07)
[2017-02-13] MEDS ORDERED: Potassium Replacement Protocol 1 EACH MISC MISCELLANE PRN (05:07)
[2017-02-13] MEDS ORDERED: Magnesium Replacement Protocol 1 EACH MISC MISCELLANE PRN (05:07)
[2017-02-13 05:18] LABS: Glucose,Whole Blood 143 mg/dL (75-99)
[2017-02-13] MEDS: methylPREDNISolone SOD SUCCI 125 MG/2 ML VIAL IV SCH ×3 (05:18→18:15)
[2017-02-13 06:07] LABS: Glucose,Whole Blood 114 mg/dL (75-99)
[2017-02-13] MEDS: MAGNESIUM SULFATE-D5W PMX 1 GM in DEXTROSE/WATER 1 100ML.BAG IVPB SCH ×2 (06:07→07:25)
[2017-02-13] MEDS: POTASSIUM CHLORIDE 10 MEQ, LIDOCAINE 2% INJ 10 MG in SODIUM CHLORIDE 0.9% 100 ML IV SCH ×2 (06:07→07:25)
[2017-02-13 07:06] LABS: Glucose,Whole Blood 99 mg/dL (75-99)
--- NOTE | 2017-02-13 07:26 | XR ---
EXAMINATION TYPE: XR chest 1V portable DATE OF EXAM: 02/13/2017 6:32 AM COMPARISON: 02/12/2017 HISTORY: Pneumonia TECHNIQUE: Single frontal view of the chest is obtained. FINDINGS: Bilateral infiltrate and small effusion seen. No pneumothorax. Heart size enlarged. IMPRESSION: 1. Bilateral infiltrate and small effusion are stable. Mild central venous congestion not excluded.
[2017-02-13 07:54] LABS: Glucose,Whole Blood 114 mg/dL (75-99)
[2017-02-13] MEDS: CEFTAROLINE FOSAMIL 600 MG in SODIUM CHLORIDE 0.9% 250 ML IVPB SCH ×2 (08:48→20:52)
[2017-02-13] MEDS: ENOXAPARIN 40 MG/0.4 ML SYRINGE SQ SCH (08:51)
[2017-02-13] MEDS: PANTOPRAZOLE 40 MG/10 ML VIAL IV SCH (08:52)
[2017-02-13 08:59] LABS: Glucose,Whole Blood 201 mg/dL (75-99)
[2017-02-13] MEDS: ACETAMINOPHEN TAB 325 MG TAB PO PRN (09:02)
[2017-02-13 09:32] LABS: Glucose,Whole Blood 194 mg/dL (75-99)
[2017-02-13 10:00] LABS: Glucose,Whole Blood 192 mg/dL (75-99)
[2017-02-13 11:05] LABS: Glucose,Whole Blood 162 mg/dL (75-99)
[2017-02-13 11:56] LABS: Glucose,Whole Blood 115 mg/dL (75-99)
--- NOTE | 2017-02-13 11:58 | P.PN ---
Subjective 26-year-old female patient, obese, with a type 1 diabetes mellitus currently on insulin pump, in addition to a previous history of hypertension hyperlipidemia and obstructive sleep apnea, was admitted to the hospital because of generalized weakness, cough and chest congestion and increased dyspnea, chills and body aches and fever that evolved over the past 48-72 hours. The patient had a son at home was suffering from respiratory checked infection and he was also having an acute febrile illness. However his condition was mild and he recovered. Since then the patient started feeling sick with above-mentioned constitutions symptoms and progressive addition to most dyspnea and cough and congestion to the point where she was becoming very uncomfortable and she came into the hospital. Chest x-ray showed left lower lobe pulmonary infiltrates/ pneumonia. Influenza screen was positive for influenza B. The patient was placed on oxygen and overnight she was placed on high flow oxygen 10 L per minute nasal cannula. She has still on high flow oxygen and her pulse ox is 91- 92%. She did develop some mild epistaxis overnight and her oxygen source is humidified. No change in mental status. No headache. No neck stiffness. No diarrhea. She did have some nausea and limited emesis earlier which recovered. She feels better compared to yesterday however she still has a congested cough and she is still requiring high flow oxygen. Levaquin was also added as an empiric antibiotic coverage. She is a nonsmoker. No travel history. No aspiration. No previous bouts of pneumonias. No other complaints otherwise. The patient is seen again today 02/13/2017 and the intensive care unit. She was quite tachypneic, tachycardic and required increasing amounts of FiO2 to maintain O2 saturations in the low 90s yesterday afternoon on the pediatric floor and she was transferred here for the same. Her chest x-ray revealed worsening pulmonary infiltrates and small bilateral pleural effusions with associated atelectasis. Arterial blood gases revealed a pO2 of 62, pCO2 29 and a pH of 7.43 and 55% FiO2. She did receive Lasix 40 mg IV, Teflaro was added, IV Solu-Medrol was increased and BiPAP support was utilized for approximately 4 hours. She is seen again today in follow-up. She is awake and alert. She is currently on 15 L of high flow nasal cannula to maintain O2 saturations in the 90s. She states she is breathing slightly better today as compared to yesterday. She continues with a productive cough. Today's chest x-ray is stable possible slight improvement. She is less tachycardic and less tachypneic. White count 13.3. She has been afebrile. Hemodynamically stable. Objective - Vital Signs Vital signs: Vital Signs Temp 98.5 F 02/13/17 04:00 Pulse 90 02/13/17 07:00 Resp 18 02/13/17 07:00 BP 113/76 02/13/17 07:00 Pulse Ox 94 L 02/13/17 08:15 Intake & Output 02/12/17 02/13/17 02/13/17 18:59 06:59 18:59 Intake Total 824.056 0380.441 112.288 Output Total 2300 665 33 Balance -2081.627 824.441 79.288 Weight 79 kg 79 kg Intake: Intake, IV Titration 326.347 5789.441 112.288 Amount Ceftaroline Fosamil 600 250 mg In Sodium Chloride 0.9 % 250 ml @ 250 mls/hr IVPB Q12HR [facility] Rx#: [id number] Insulin Regular 100 unit 10.773 39.441 12.288 In Sodium Chloride 0.9% 100 ml @ Per Protocol IV .Q0M [facility] Rx#:[id number] Insulin Regular 100 unit 7.6 In Sodium Chloride 0.9% 100 ml @ Titrate IV .Q0M [facility] Rx#:[id number] Magnesium Sulfate-D5w Pmx 100 1 gm In Dextrose/Water 1 100ml.bag @ 100 mls/hr IVPB Q1H [facility] Rx#: [id number] Potassium Chloride 10 meq 100 Lidocaine 2% Inj 10 mg In Sodium Chloride 0.9% 100 ml @ 100 mls/hr IV Q1HR [facility] Rx#:[id number] Sodium Chloride 0.9% 1, 200 1000 100 000 ml @ 100 mls/hr IV . Q10H [facility] Rx#:[id number] Output: Urine 2300 665 33 Other: Voiding Method Indwelling Catheter - Exam Head exam was generally normal. There was no scleral icterus or corneal arcus. Mucous membranes were moist. My normal neck the patient has significant crowding of the posterior oropharynx. No goiter or neck masses. No thrush. Lungs sounds are diminished bilaterally along with bibasilar crackles worse on the left. There is some scattered rhonchi and wheezes in addition.Cardiac exam revealed the PMI to be normally situated and sized. The rhythm was regular and no extrasystoles were noted during several minutes of auscultation. The first and second heart sounds were normal and physiologic splitting of the second heart sound was noted. There were no murmurs, rubs, clicks, or gallops.Abdominal exam revealed normal bowel sounds. The abdomen was soft, non- tender, and without masses, organomegaly, or appreciable enlargement of the abdominal aorta.Examination of the extremities revealed easily palpable radial, femoral and pedal pulses. There was no cyanosis, clubbing or edema. - Labs CBC & Chem 7: 02/13/17 04:08 02/13/17 04:08 Labs: Abnormal Lab Results - Last 24 Hours (Table) 02/12/17 02/12/17 02/12/17 Range/Units 12:04 13:45 14:32 WBC (3.8-10.6) k/uL RBC (3.80-5.40) m/uL Neutrophils # (1.3-7.7) k/uL Lymphocytes # (1.0-4.8) k/uL ABG pCO2 (35-45) mmHg ABG pO2 (83-108) mmHg ABG HCO3 (21-25) mmol/L ABG O2 Saturation (94-97) % Creatinine (0.52-1.04) mg/dL Glucose (74-99) mg/dL POC Glucose (mg/dL) 253 H 235 H 182 H (75-99) mg/dL Calcium (8.4-10.2) mg/dL 02/12/17 02/12/17 02/12/17 Range/Units 15:18 16:23 16:37 WBC (3.8-10.6) k/uL RBC (3.80-5.40) m/uL Neutrophils # (1.3-7.7) k/uL Lymphocytes # (1.0-4.8) k/uL ABG pCO2 29 L (35-45) mmHg ABG pO2 62 L (83-108) mmHg ABG HCO3 19 L (21-25) mmol/L ABG O2 Saturation 92.0 L (94-97) % Creatinine (0.52-1.04) mg/dL Glucose (74-99) mg/dL POC Glucose (mg/dL) 173 H 189 H (75-99) mg/dL Calcium (8.4-10.2) mg/dL 02/12/17 02/12/17 02/12/17 Range/Units 16:58 18:18 19:11 WBC (3.8-10.6) k/uL RBC (3.80-5.40) m/uL Neutrophils # (1.3-7.7) k/uL Lymphocytes # (1.0-4.8) k/uL ABG pCO2 (35-45) mmHg ABG pO2 (83-108) mmHg ABG HCO3 (21-25) mmol/L ABG O2 Saturation (94-97) % Creatinine (0.52-1.04) mg/dL Glucose (74-99) mg/dL POC Glucose (mg/dL) 214 H 205 H 154 H (75-99) mg/dL Calcium (8.4-10.2) mg/dL 02/12/17 02/12/17 02/12/17 Range/Units 20:20 20:57 22:03 WBC (3.8-10.6) k/uL RBC (3.80-5.40) m/uL Neutrophils # (1.3-7.7) k/uL Lymphocytes # (1.0-4.8) k/uL ABG pCO2 (35-45) mmHg ABG pO2 (83-108) mmHg ABG HCO3 (21-25) mmol/L ABG O2 Saturation (94-97) % Creatinine (0.52-1.04) mg/dL Glucose (74-99) mg/dL POC Glucose (mg/dL) 156 H 155 H 157 H (75-99) mg/dL Calcium (8.4-10.2) mg/dL 02/12/17 02/13/17 02/13/17 Range/Units 23:07 00:00 01:06 WBC (3.8-10.6) k/uL RBC (3.80-5.40) m/uL Neutrophils # (1.3-7.7) k/uL Lymphocytes # (1.0-4.8) k/uL ABG pCO2 (35-45) mmHg ABG pO2 (83-108) mmHg ABG HCO3 (21-25) mmol/L ABG O2 Saturation (94-97) % Creatinine (0.52-1.04) mg/dL Glucose (74-99) mg/dL POC Glucose (mg/dL) 112 H 175 H 154 H (75-99) mg/dL Calcium (8.4-10.2) mg/dL 02/13/17 02/13/17 02/13/17 Range/Units 02:09 03:17 04:08 WBC 13.3 H (3.8-10.6) k/uL RBC 3.68 L (3.80-5.40) m/uL Neutrophils # 12.3 H (1.3-7.7) k/uL Lymphocytes # 0.7 L (1.0-4.8) k/uL ABG pCO2 (35-45) mmHg ABG pO2 (83-108) mmHg ABG HCO3 (21-25) mmol/L ABG O2 Saturation (94-97) % Creatinine (0.52-1.04) mg/dL Glucose (74-99) mg/dL POC Glucose (mg/dL) 129 H 209 H (75-99) mg/dL Calcium (8.4-10.2) mg/dL 02/13/17 02/13/17 02/13/17 Range/Units 04:08 04:26 05:16 WBC (3.8-10.6) k/uL RBC (3.80-5.40) m/uL Neutrophils # (1.3-7.7) k/uL Lymphocytes # (1.0-4.8) k/uL ABG pCO2 (35-45) mmHg ABG pO2 (83-108) mmHg ABG HCO3 (21-25) mmol/L ABG O2 Saturation (94-97) % Creatinine 0.40 L (0.52-1.04) mg/dL Glucose 186 H (74-99) mg/dL POC Glucose (mg/dL) 169 H 143 H (75-99) mg/dL Calcium 8.1 L (8.4-10.2) mg/dL 02/13/17 02/13/17 02/13/17 Range/Units 06:05 07:53 08:58 WBC (3.8-10.6) k/uL RBC (3.80-5.40) m/uL Neutrophils # (1.3-7.7) k/uL Lymphocytes # (1.0-4.8) k/uL ABG pCO2 (35-45) mmHg ABG pO2 (83-108) mmHg ABG HCO3 (21-25) mmol/L ABG O2 Saturation (94-97) % Creatinine (0.52-1.04) mg/dL Glucose (74-99) mg/dL POC Glucose (mg/dL) 114 H 114 H 201 H (75-99) mg/dL Calcium (8.4-10.2) mg/dL 02/13/17 02/13/17 02/13/17 Range/Units 09:29 09:59 11:04 WBC (3.8-10.6) k/uL RBC (3.80-5.40) m/uL Neutrophils # (1.3-7.7) k/uL Lymphocytes # (1.0-4.8) k/uL ABG pCO2 (35-45) mmHg ABG pO2 (83-108) mmHg ABG HCO3 (21-25) mmol/L ABG O2 Saturation (94-97) % Creatinine (0.52-1.04) mg/dL Glucose (74-99) mg/dL POC Glucose (mg/dL) 194 H 192 H 162 H (75-99) mg/dL Calcium (8.4-10.2) mg/dL Assessment and Plan Plan: Assessment 1 acute pneumonia bibasilar worse on the left. Rule out acute viral influenza and pneumonia. Rule out superimposed bacterial pneumonia. 02/13/2017 The patient continued to deteriorate and was transferred to the intensive care unit yesterday afternoon. She did require BiPAP support. The patient is requiring high flow oxygen 15 L per minute nasal cannula. Today's chest x-ray is stable continue to show bibasilar infiltrates. Sputum culture is showing many gram-positive and gram-negative bacilli, many gram-positive cocci. She is now on Teflaro and Levaquin. 2 acute hypoxic respiratory failure secondary to above. 3 CVA/TIA, history of 4 Diabetes mellitus type 1 maintained on insulin pump on outpatient basis. The patient had developed some steroid-induced hyperglycemia and the insulin pump was discontinued and she was initiated on a insulin drip currently at 5 units per hour. 5 hyperlipidemia 6 hypertension 7 ADHD 8 obstructive sleep apnea, not receiving any CPAP therapy at this point. Plan Agree on the current plan. Insulin pump was discontinued and a insulin drip was initiated currently at 5 units per hour. Meanwhile continue the Levaquin and Tamiflu, Teflaro was started yesterday. Today's chest x-ray similar but stable. We will give an additional dose of Lasix 40 mg IV push 1 today. She remains on Lovenox for DVT prophylaxis. She is improved clinically and is less tachycardic and tachypneic. Repeat chest x-ray in the a.m. We'll continue monitor her here closely in the intensive care unit.
[2017-02-13 12:57] LABS: Glucose,Whole Blood 131 mg/dL (75-99)
[2017-02-13 14:01] LABS: Glucose,Whole Blood 116 mg/dL (75-99)
[2017-02-13 15:03] LABS: Glucose,Whole Blood 208 mg/dL (75-99)
[2017-02-13] MEDS: LEVOFLOXACIN 750MG-D5W PMX 750 MG in DEXTROSE/WATER 1 150ML.BAG IVPB SCH (15:25)
[2017-02-13 16:18] LABS: Glucose,Whole Blood 192 mg/dL (75-99)
[2017-02-13 17:30] LABS: Glucose,Whole Blood 170 mg/dL (75-99)
[2017-02-13] MEDS: INSULIN REGULAR 100 UNIT in SODIUM CHLORIDE 0.9% 100 ML IV SCH (17:34)
[2017-02-13 18:04] LABS: Glucose,Whole Blood 154 mg/dL (75-99)
[2017-02-13] MEDS: SODIUM CHLORIDE 0.9% 1,000 ML IV SCH ×2 (18:15→20:53)
[2017-02-13 19:09] LABS: Glucose,Whole Blood 100 mg/dL (75-99)
--- NOTE | 2017-02-13 19:12 | PN ---
DATE OF SERVICE: 02/13/2017 This 26 -year-old woman was admitted with acute influenza B also possibly bilateral pneumonia. The patient also had acute respiratory failure. The patient was hypoxic yesterday. Patient was transferred to ICU on BIPAP by Dr. Jackson. the patient could not tolerate chest x-ray was reviewed. The patient on antivirals and antibiotics as well as IV steroids also. PAST MEDICAL HISTORY: Reviewed. REVIEW OF SYSTEMS: CARDIOVASCULAR: As mentioned earlier. RESPIRATORY: As mentioned earlier. GASTROINTESTINAL: No nausea or vomiting. GENITOURINARY: No dysuria. Nervous system: As mentioned earlier. Current medications are reviewed and include: 1. Tylenol 650 q.6h p.r.n. 2. [place] 5 mg q.4 p.r.n. 3. DuoNeb q.i.d. and p.r.n. 4. Ceftaroline 600 mg b.i.d. 5. Lovenox 40 mg subcu daily. 6. Lasix. 7. Dilaudid q.4 p.r.n. 8. Toradol. 9. Levaquin 750 daily. 10. Ativan. 11. Solu-Medrol 60 IV q.6h. 12. Insulin IV. 13. Narcan. 14. Zofran. 15. Protonix. 16. Restoril. PHYSICAL EXAMINATION: The patient is alert and oriented times three. Pulse 90, blood pressure is 113/77, respirations 18, temperature 98.6, pulse ox 94% on 12 liters. HEENT: Conjunctivae normal. Oral mucosa moist. NECK: No jugular venous distention. No carotid bruit. No lymph node enlargement. CARDIOVASCULAR SYSTEM: S1, S2 muffled. No S3, no S4. RESPIRATORY: Breath sounds diminished at the bases. Bilateral scattered rhonchi and expiratory wheezing also present. ABDOMEN: Soft, obese. Nontender. No mass palpable. LEGS: No edema. No swelling. CENTRAL NERVOUS SYSTEM: Higher functions as mentioned earlier. No focal deficits. LYMPHATICS: No lymph nodes palpable in the neck, axillae or groin. SKIN: No ulcer, rash or bleeding. LABS: WBC 13, hemoglobin 11.4. Sodium 139, potassium 3.5. ASSESSMENT: 1. Acute influenza B with bilateral pneumonia, left more than right with possible gram-negative sepsis with acute hypoxic respiratory failure, present on admission. 2. Diabetes mellitus Type 1, uncontrolled on insulin ip. 3. Insulin pump. 4. Hypoalbuminemia, mild. 5. Anemia, macrocytic. 6. Hyponatremia. 7. Mild hypocalcemia. 8. Incessant vomiting, unable to keep anything down with acute gastritis. 9. History of cerebrovascular accident, transient ischemic attack. 10. Hypertension. 11. Hyperlipidemia. 12. History of sleep apnea history. 13. History of migraine. 14. History of degenerative joint disease. 15. History of section. 16. History of attention deficit hyperactivity disorder. 17. History of anxiety. 18. Obesity with body mass index of 31.2. 19. FULL CODE. RECOMMENDATIONS AND DISCUSSION: Recommend to continue current medications, continue with monitoring and symptomatic treatment. Otherwise, at this time I would recommend continue with antivirals, antibiotics, bronchodilators, empiric steroids. Closely follow with Dr. Jackson. Prognosis guarded because of multiple complex medical issues. Further recommendations to follow. MTDD
[2017-02-13 19:59] LABS: Glucose,Whole Blood 110 mg/dL (75-99)
[2017-02-13] MEDS: LORazepam 2 MG/ML SYRINGE IV PRN (20:00)
[2017-02-13] MEDS: KETOROLAC 30 MG/ML 1 ML VIAL IVP PRN (20:00)
[2017-02-13] MEDS: guaiFENesin 600 MG TABLET.ER PO PRN (20:09)
[2017-02-13 20:57] LABS: Glucose,Whole Blood 165 mg/dL (75-99)
[2017-02-13 22:11] LABS: Glucose,Whole Blood 161 mg/dL (75-99)
[2017-02-13 23:26] LABS: Glucose,Whole Blood 146 mg/dL (75-99)
[2017-02-14 00:19] LABS: Glucose,Whole Blood 116 mg/dL (75-99)
[2017-02-14] MEDS: methylPREDNISolone SOD SUCCI 125 MG/2 ML VIAL IV SCH ×4 (00:19→17:21)
[2017-02-14 01:13] LABS: Glucose,Whole Blood 155 mg/dL (75-99)
[2017-02-14 02:17] LABS: Glucose,Whole Blood 159 mg/dL (75-99)
[2017-02-14 03:17] LABS: Glucose,Whole Blood 131 mg/dL (75-99)
[2017-02-14] MEDS: IPRATROPIUM-ALBUTEROL 3 ML NEB INHALATION SCH ×6 (03:31→23:11)
[2017-02-14 04:11] LABS: Glucose,Whole Blood 156 mg/dL (75-99)
[2017-02-14 04:51] LABS: Basophils % (A) 0 %; CHCM 32.6; Eosinophils % (A) 0 %; HCT 36.1 % (34.0-46.0); HDW 2.35; HGB 11.5 gm/dL (11.4-16.0); Luc # (Auto) 0.03; Luc % (Auto) 0; Lymphocytes # (A) 0.5 k/uL (1.0-4.8); Lymphocytes % (A) 7 %; MCH 31.5 pg (25.0-35.0); MCV 98.6 fL (80.0-100.0); Mean Platelet Volume 6.7; Monocytes # (A) 0.2 k/uL (0-1.0); Monocytes % (A) 3 %; Neutrophils # (A) 7.2 k/uL (1.3-7.7); Neutrophils % (A) 90 %; RBC 3.66 m/uL (3.80-5.40); RDW 12.5 % (11.5-15.5); WBC (Perox) 8.79
[2017-02-14 05:02] LABS: Anion Gap 10 mmol/L; Blood Urea Nitrogen 14 mg/dL (7-17); Calcium 7.7 mg/dL (8.4-10.2); Carbon Dioxide 22 mmol/L (22-30); Chloride 106 mmol/L (98-107); Glucose 189 mg/dL (74-99); Non-African American GFR(MDRD) >60 (>60 ml/min/1.73 sqM); Potassium 4.3 mmol/L (3.5-5.1); Sodium 138 mmol/L (137-145)
[2017-02-14 05:25] LABS: Glucose,Whole Blood 177 mg/dL (75-99)
[2017-02-14 06:10] LABS: Glucose,Whole Blood 168 mg/dL (75-99)
[2017-02-14 06:26] LABS: Magnesium 2.3 mg/dL (1.6-2.3); Phosphorous 3.5 mg/dL (2.5-4.5)
[2017-02-14 07:00] LABS: Glucose,Whole Blood 151 mg/dL (75-99)
[2017-02-14] MEDS: LORazepam 2 MG/ML SYRINGE IV PRN ×4 (07:21→19:58)
--- NOTE | 2017-02-14 07:22 | XR ---
EXAMINATION TYPE: XR chest 1V portable DATE OF EXAM: 02/14/2017 7:11 AM CLINICAL HISTORY: Difficulty breathing and pneumonia progress study. TECHNIQUE: Single AP portable upright view of the chest is obtained. COMPARISON: Chest x-ray from one day earlier FINDINGS: There is persistent bibasilar opacity consistent with small bilateral pleural effusions an d associated bibasilar atelectasis and/or infiltrate. Cardiac silhouette size is stable and upper morillo its of normal with mild central vascular congestion. Upper lungs are clear without pneumothorax. Osse ous structures are intact. IMPRESSION: Overall stable findings, persistent mild central vascular congestion and small bilatera l pleural effusions with associated bibasilar atelectasis and/or infiltrate all once again noted.
[2017-02-14] MEDS: KETOROLAC 30 MG/ML 1 ML VIAL IVP PRN ×3 (07:24→19:58)
[2017-02-14] MEDS: ONDANSETRON 4 MG/2 ML VIAL IVP PRN ×2 (07:24→21:55)
[2017-02-14 08:02] LABS: Glucose,Whole Blood 154 mg/dL (75-99)
[2017-02-14] MEDS: CEFTAROLINE FOSAMIL 600 MG in SODIUM CHLORIDE 0.9% 250 ML IVPB SCH ×2 (08:18→21:22)
[2017-02-14] MEDS: ENOXAPARIN 40 MG/0.4 ML SYRINGE SQ SCH (08:18)
[2017-02-14] MEDS: PANTOPRAZOLE 40 MG/10 ML VIAL IV SCH (08:18)
[2017-02-14] MEDS: SODIUM CHLORIDE 0.9% 1,000 ML IV SCH ×3 (08:19→21:22)
[2017-02-14 09:38] LABS: Glucose,Whole Blood 201 mg/dL (75-99)
[2017-02-14] MEDS: INSULIN REGULAR 100 UNIT in SODIUM CHLORIDE 0.9% 100 ML IV SCH (09:38)
[2017-02-14 10:26] LABS: Glucose,Whole Blood 185 mg/dL (75-99)
[2017-02-14 11:43] LABS: Glucose,Whole Blood 141 mg/dL (75-99)
[2017-02-14 12:34] LABS: Glucose,Whole Blood 140 mg/dL (75-99)
[2017-02-14 13:35] LABS: Glucose,Whole Blood 139 mg/dL (75-99)
[2017-02-14] MEDS: LEVOFLOXACIN 750MG-D5W PMX 750 MG in DEXTROSE/WATER 1 150ML.BAG IVPB SCH (13:36)
[2017-02-14 15:04] LABS: Glucose,Whole Blood 253 mg/dL (75-99)
--- NOTE | 2017-02-14 15:05 | P.PN ---
Subjective 26-year-old female patient, obese, with a type 1 diabetes mellitus currently on insulin pump, in addition to a previous history of hypertension hyperlipidemia and obstructive sleep apnea, was admitted to the hospital because of generalized weakness, cough and chest congestion and increased dyspnea, chills and body aches and fever that evolved over the past 48-72 hours. The patient had a son at home was suffering from respiratory checked infection and he was also having an acute febrile illness. However his condition was mild and he recovered. Since then the patient started feeling sick with above-mentioned constitutions symptoms and progressive addition to most dyspnea and cough and congestion to the point where she was becoming very uncomfortable and she came into the hospital. Chest x-ray showed left lower lobe pulmonary infiltrates/ pneumonia. Influenza screen was positive for influenza B. The patient was placed on oxygen and overnight she was placed on high flow oxygen 10 L per minute nasal cannula. She has still on high flow oxygen and her pulse ox is 91- 92%. She did develop some mild epistaxis overnight and her oxygen source is humidified. No change in mental status. No headache. No neck stiffness. No diarrhea. She did have some nausea and limited emesis earlier which recovered. She feels better compared to yesterday however she still has a congested cough and she is still requiring high flow oxygen. Levaquin was also added as an empiric antibiotic coverage. She is a nonsmoker. No travel history. No aspiration. No previous bouts of pneumonias. No other complaints otherwise. The patient is seen again today 02/13/2017 and the intensive care unit. She was quite tachypneic, tachycardic and required increasing amounts of FiO2 to maintain O2 saturations in the low 90s yesterday afternoon on the pediatric floor and she was transferred here for the same. Her chest x-ray revealed worsening pulmonary infiltrates and small bilateral pleural effusions with associated atelectasis. Arterial blood gases revealed a pO2 of 62, pCO2 29 and a pH of 7.43 and 55% FiO2. She did receive Lasix 40 mg IV, Teflaro was added, IV Solu-Medrol was increased and BiPAP support was utilized for approximately 4 hours. She is seen again today in follow-up. She is awake and alert. She is currently on 15 L of high flow nasal cannula to maintain O2 saturations in the 90s. She states she is breathing slightly better today as compared to yesterday. She continues with a productive cough. Today's chest x-ray is stable possible slight improvement. She is less tachycardic and less tachypneic. White count 13.3. She has been afebrile. Hemodynamically stable. She is seen again today in follow-up 02/14/2017 in the intensive care unit. She is awake and alert in no acute distress. She does continue to require high FiO2 at 15 L per high flow nasal cannula to maintain O2 saturations in the low 90s. She declined to wear the BiPAP throughout the night. Her chest x-ray remains stable but with basilar infiltrates. No real improvement just yet. She remains afebrile at 99.0. No leukocytosis. Blood cultures and sputum culture reveals no growth. Objective - Vital Signs Vital signs: Vital Signs Temp 98.4 F 02/14/17 08:00 Pulse 70 02/14/17 12:13 Resp 19 02/14/17 12:00 BP 133/82 02/14/17 08:00 Pulse Ox 93 L 02/14/17 08:00 Intake & Output 02/13/17 02/14/17 02/14/17 18:59 06:59 18:59 Intake Total 1836.157 970.738 616.732 Output Total 623 877 330 Balance 1213.157 93.738 286.732 Weight 79 kg 81.7 kg Intake: Intake, IV Titration 1836.157 970.738 616.732 Amount Ceftaroline Fosamil 600 250 250 mg In Sodium Chloride 0.9 % 250 ml @ 250 mls/hr IVPB Q12HR [facility] Rx#: [id number] Insulin Regular 100 unit 36.157 20.738 16.732 In Sodium Chloride 0.9% 100 ml @ Per Protocol IV .Q0M [facility] Rx#:[id number] Levofloxacin 750Mg-D5w 150 Pmx 750 mg In Dextrose/ Water 1 150ml.bag @ 100 mls/hr IVPB DAILY@1400 [facility] Rx#:[id number] Magnesium Sulfate-D5w Pmx 100 1 gm In Dextrose/Water 1 100ml.bag @ 100 mls/hr IVPB Q1H [facility] Rx#: [id number] Potassium Chloride 10 meq 100 Lidocaine 2% Inj 10 mg In Sodium Chloride 0.9% 100 ml @ 100 mls/hr IV Q1HR [facility] Rx#:[id number] Sodium Chloride 0.9% 1, 1200 700 600 000 ml @ 100 mls/hr IV . Q10H [facility] Rx#:[id number] Output: Urine 623 877 330 Other: Voiding Method Indwelling Catheter Indwelling Catheter Indwelling Catheter - Exam Head exam was generally normal. There was no scleral icterus or corneal arcus. Mucous membranes were moist. My normal neck the patient has significant crowding of the posterior oropharynx. No goiter or neck masses. No thrush. Lungs sounds are diminished bilaterally along with bibasilar crackles worse on the left. There is some scattered rhonchi and wheezes in addition.Cardiac exam revealed the PMI to be normally situated and sized. The rhythm was regular and no extrasystoles were noted during several minutes of auscultation. The first and second heart sounds were normal and physiologic splitting of the second heart sound was noted. There were no murmurs, rubs, clicks, or gallops.Abdominal exam revealed normal bowel sounds. The abdomen was soft, non- tender, and without masses, organomegaly, or appreciable enlargement of the abdominal aorta.Examination of the extremities revealed easily palpable radial, femoral and pedal pulses. There was no cyanosis, clubbing or edema. - Labs CBC & Chem 7: 02/14/17 04:24 02/14/17 04:24 Labs: Abnormal Lab Results - Last 24 Hours (Table) 02/13/17 02/13/17 02/13/17 Range/Units 15:02 16:17 17:28 RBC (3.80-5.40) m/uL Lymphocytes # (1.0-4.8) k/uL Creatinine (0.52-1.04) mg/dL Glucose (74-99) mg/dL POC Glucose (mg/dL) 208 H 192 H 170 H (75-99) mg/dL Calcium (8.4-10.2) mg/dL 02/13/17 02/13/17 02/13/17 Range/Units 18:03 19:07 19:56 RBC (3.80-5.40) m/uL Lymphocytes # (1.0-4.8) k/uL Creatinine (0.52-1.04) mg/dL Glucose (74-99) mg/dL POC Glucose (mg/dL) 154 H 100 H 110 H (75-99) mg/dL Calcium (8.4-10.2) mg/dL 02/13/17 02/13/17 02/13/17 Range/Units 20:56 22:10 23:24 RBC (3.80-5.40) m/uL Lymphocytes # (1.0-4.8) k/uL Creatinine (0.52-1.04) mg/dL Glucose (74-99) mg/dL POC Glucose (mg/dL) 165 H 161 H 146 H (75-99) mg/dL Calcium (8.4-10.2) mg/dL 02/14/17 02/14/17 02/14/17 Range/Units 00:17 01:11 02:15 RBC (3.80-5.40) m/uL Lymphocytes # (1.0-4.8) k/uL Creatinine (0.52-1.04) mg/dL Glucose (74-99) mg/dL POC Glucose (mg/dL) 116 H 155 H 159 H (75-99) mg/dL Calcium (8.4-10.2) mg/dL 02/14/17 02/14/17 02/14/17 Range/Units 03:15 04:09 04:24 RBC 3.66 L (3.80-5.40) m/uL Lymphocytes # 0.5 L (1.0-4.8) k/uL Creatinine (0.52-1.04) mg/dL Glucose (74-99) mg/dL POC Glucose (mg/dL) 131 H 156 H (75-99) mg/dL Calcium (8.4-10.2) mg/dL 02/14/17 02/14/17 02/14/17 Range/Units 04:24 05:23 06:08 RBC (3.80-5.40) m/uL Lymphocytes # (1.0-4.8) k/uL Creatinine 0.50 L (0.52-1.04) mg/dL Glucose 189 H (74-99) mg/dL POC Glucose (mg/dL) 177 H 168 H (75-99) mg/dL Calcium 7.7 L (8.4-10.2) mg/dL 03/16/17 03/16/17 03/16/17 Range/Units 06:59 08:01 09:36 RBC (3.80-5.40) m/uL Lymphocytes # (1.0-4.8) k/uL Creatinine (0.52-1.04) mg/dL Glucose (74-99) mg/dL POC Glucose (mg/dL) 151 H 154 H 201 H (75-99) mg/dL Calcium (8.4-10.2) mg/dL 02/14/17 02/14/17 02/14/17 Range/Units 10:24 11:38 12:32 RBC (3.80-5.40) m/uL Lymphocytes # (1.0-4.8) k/uL Creatinine (0.52-1.04) mg/dL Glucose (74-99) mg/dL POC Glucose (mg/dL) 185 H 141 H 140 H (75-99) mg/dL Calcium (8.4-10.2) mg/dL 02/14/17 Range/Units 13:33 RBC (3.80-5.40) m/uL Lymphocytes # (1.0-4.8) k/uL Creatinine (0.52-1.04) mg/dL Glucose (74-99) mg/dL POC Glucose (mg/dL) 139 H (75-99) mg/dL Calcium (8.4-10.2) mg/dL Microbiology - Last 24 Hours (Table) 02/11/17 19:50 Gram Stain - Final Sputum Sputum Culture - Final Assessment and Plan Plan: Assessment 1 acute pneumonia bibasilar worse on the left. Rule out acute viral influenza and pneumonia. Rule out superimposed bacterial pneumonia. 02/13/2017 The patient continued to deteriorate and was transferred to the intensive care unit yesterday afternoon. She did require BiPAP support. The patient is requiring high flow oxygen 15 L per minute nasal cannula. Today's chest x-ray is stable continue to show bibasilar infiltrates. Sputum culture is showing many gram-positive and gram-negative bacilli, many gram-positive cocci. She is now on Teflaro and Levaquin. 02/14/2017. The patient is presently stable. She still continues to require high FiO2 at 15 L per high flow nasal cannula. Her chest x-ray is stable but not much improved. There is concern regarding possible ARDS. 2 acute hypoxic respiratory failure secondary to above. 3 CVA/TIA, history of 4 Diabetes mellitus type 1 maintained on insulin pump on outpatient basis. The patient had developed some steroid-induced hyperglycemia and the insulin pump was discontinued and she was initiated on a insulin drip currently at 5 units per hour. 5 hyperlipidemia 6 hypertension 7 ADHD 8 obstructive sleep apnea, not receiving any CPAP therapy at this point. Plan: The patient was seen and evaluated by Dr. Jackson. Her chest x-ray and labs were reviewed. We'll continue with her current medications including Levaquin, Teflaro and Tamiflu. She may benefit from bronchoscopy with BAL if her O2 requirements improve. For now we'll continue with close observation here in the intensive care unit. We'll repeat her chest x-ray in the a.m. We'll continue to follow.
[2017-02-14 16:01] LABS: Glucose,Whole Blood 192 mg/dL (75-99)
[2017-02-14 17:22] LABS: Glucose,Whole Blood 171 mg/dL (75-99)
[2017-02-14 18:20] LABS: Glucose,Whole Blood 169 mg/dL (75-99)
--- NOTE | 2017-02-14 18:33 | PN ---
DATE OF SERVICE: 02/14/2017 This 26-year-old woman was admitted with acute influenza B with bilateral pneumonia with acute respiratory failure is also on BiPAP at this time. The patient is complaining of severe tiredness and occasional cough, also chest x-ray showed rather stable findings. Patient received Lasix yesterday. The patient is on bronchodilators, antivirals and steroids. Dr. Jackson is following the patient closely. PAST MEDICAL HISTORY: Reviewed. REVIEW OF SYSTEMS: CARDIOVASCULAR: No angina. RESPIRATORY: As mentioned earlier. GI: As mentioned earlier. : No dysuria. NERVOUS SYSTEM: No numbness or weakness. Current medications are reviewed and include: 1. Tylenol 650 q.6 p.r.n. 2. [place] 5 mg q.4 p.r.n. 3. DuoNeb q.i.d. and p.r.n. 4. Ceftaroline 65 mg IV b.i.d. 5. Lovenox 40 mg subcu daily. 6. Mucinex 600 mg p.o. b.i.d. 7. Dilaudid 0.5 q.4 p.r.n. 8. Toradol 30 mg IV every 6 p.r.n. 9. Levaquin 750 daily. 10. Ativan 1 mg q.4 p.r.n. 11. Solu-Medrol 60 IV q.6. 12. P.r.n. medication. 13. Narcan p.r.n. 14. Protonix 40 mg IV daily. PHYSICAL EXAMINATION: Patient is alert and oriented x3. Pulse is 103, blood pressure is 130/82, respirations 18, temperature 98.4, pulse 92% on 15 liters. HEENT: Conjunctivae normal. Oral mucosa moist. NECK: No jugular venous distention. No carotid bruit. No lymph node enlargement. CARDIOVASCULAR: S1 and S2. No S3, no S4. RESPIRATORY: Breath sounds diminished at the bases. Bilateral scattered rhonchi and crackles. Expiratory wheezing also present. The patient is on BiPAP. BIPAP SETTINGS ARE NOTED. ABDOMEN: Soft, nontender. No mass palpable. No hepatosplenomegaly. LEGS: No edema, no swelling. NERVOUS SYSTEM: Higher function as mentioned. Moves all four limbs. No focal motor deficits. LYMPHATIC: No lymphadenopathy in the neck, axillae or groin. SKIN: No ulcer, rash or bleeding. LABS: Accu-Cheks are 141, 143, 90. WBC 8, hemoglobin 11.5. Otherwise, creatinine is normal. Cultures are negative. Chest x-ray reviewed. ASSESSMENT: 1. Acute influenza B with bilateral pneumonia, left more than the right with possible gram-negative sepsis with acute hypoxic respiratory failure on BiPAP present on admission. 2. Diabetes mellitus type 1 uncontrolled on insulin drip, insulin pump history. 3. Hypoalbuminemia, mild. 4. Anemia, macrocytic. 5. Hyponatremia. 6. Mild hypocalcemia. 7. Incessant vomiting and unable to keep anything down with acute gastritis. 8. History of cerebrovascular accident, transient ischemic attack. 9. Hypertension. 10. Hyperlipidemia. 11. History of sleep apnea. 12. History of migraine. 13. History of degenerative joint disease. 14. History of section. 15. History of attention deficit hyperactivity disorder. 16. History of anxiety. 17. Obesity with body mass index of 31.2. 18. FULL CODE. RECOMMENDATIONS AND DISCUSSION: I recommend to continue with current medications, continue with monitoring and symptomatic treatment. Otherwise at this time continue with bronchodilators. Continue with empiric antibiotics, steroids, BiPAP. Guarded prognosis because of multiple complex medical issues. Further recommendations to follow. ABG showed the patient's pH was 7.43 but pCO2 of 29 and pO2 of 62; both are low. MTDD
[2017-02-14 19:57] LABS: Glucose,Whole Blood 141 mg/dL (75-99)
[2017-02-14 21:22] LABS: Glucose,Whole Blood 155 mg/dL (75-99)
[2017-02-14] MEDS: guaiFENesin 600 MG TABLET.ER PO PRN (21:22)
[2017-02-14 22:05] LABS: Glucose,Whole Blood 150 mg/dL (75-99)
[2017-02-14 23:00] LABS: Glucose,Whole Blood 154 mg/dL (75-99)
[2017-02-15 00:02] LABS: Glucose,Whole Blood 172 mg/dL (75-99)
[2017-02-15] MEDS: methylPREDNISolone SOD SUCCI 125 MG/2 ML VIAL IV SCH ×4 (00:20→17:14)
[2017-02-15 02:00] LABS: Glucose,Whole Blood 151 mg/dL (75-99)
[2017-02-15] MEDS: IPRATROPIUM-ALBUTEROL 3 ML NEB INHALATION SCH ×6 (03:06→23:16)
[2017-02-15 04:21] LABS: Glucose,Whole Blood 129 mg/dL (75-99)
[2017-02-15 05:40] LABS: Basophils % (A) 1 %; CH 32.3; CHCM 32.7; Eosinophils % (A) 0 %; HCT 36.2 % (34.0-46.0); HDW 2.36; HGB 11.7 gm/dL (11.4-16.0); Luc # (Auto) 0.11; Luc % (Auto) 1; Lymphocytes # (A) 0.5 k/uL (1.0-4.8); Lymphocytes % (A) 7 %; MCHC 32.2 g/dL (31.0-37.0); MCV 99.5 fL (80.0-100.0); Mean Platelet Volume 7.8; Monocytes # (A) 0.3 k/uL (0-1.0); Monocytes % (A) 4 %; Neutrophils # (A) 6.8 k/uL (1.3-7.7); Neutrophils % (A) 87 %; RBC 3.64 m/uL (3.80-5.40); RDW 12.4 % (11.5-15.5); WBC 7.7 k/uL (3.8-10.6); WBC (Perox) 8.42
[2017-02-15 05:59] LABS: Anion Gap 10 mmol/L; Blood Urea Nitrogen 14 mg/dL (7-17); Calcium 7.8 mg/dL (8.4-10.2); Carbon Dioxide 21 mmol/L (22-30); Chloride 108 mmol/L (98-107); Glucose 131 mg/dL (74-99); Magnesium 2.3 mg/dL (1.6-2.3); Non-African American GFR(MDRD) >60 (>60 ml/min/1.73 sqM); Phosphorous 3.2 mg/dL (2.5-4.5); Potassium 4.3 mmol/L (3.5-5.1); Sodium 139 mmol/L (137-145)
[2017-02-15 06:08] LABS: Glucose,Whole Blood 150 mg/dL (75-99)
[2017-02-15 08:04] LABS: Glucose,Whole Blood 155 mg/dL (75-99)
[2017-02-15] MEDS: PANTOPRAZOLE 40 MG/10 ML VIAL IV SCH (08:15)
[2017-02-15] MEDS: ENOXAPARIN 40 MG/0.4 ML SYRINGE SQ SCH (08:15)
[2017-02-15] MEDS: CEFTAROLINE FOSAMIL 600 MG in SODIUM CHLORIDE 0.9% 250 ML IVPB SCH ×2 (08:43→20:12)
--- NOTE | 2017-02-15 09:07 | XR ---
EXAMINATION TYPE: XR chest 2V DATE OF EXAM: 02/15/2017 6:49 AM HISTORY: Pneumonia. REFERENCE: Previous study dated 02/14/2017. FINDINGS: There continues to be increased opacity at both lung bases. This may be due to pleural flui d. This has improved slightly. The heart is not enlarged. IMPRESSION: VERY SLIGHT IMPROVEMENT IN AERATION OF BOTH LUNG BASES.
[2017-02-15] MEDS: HYDROcodone/APAP 5-325MG 1 EACH TAB PO PRN ×2 (09:55→20:11)
[2017-02-15] MEDS: SODIUM CHLORIDE 0.9% 1,000 ML IV SCH ×2 (10:01→20:08)
[2017-02-15] MEDS: ONDANSETRON 4 MG/2 ML VIAL IVP PRN ×3 (10:01→18:30)
[2017-02-15] MEDS ORDERED: FUROSEMIDE 10 MG/ML 4 ML VIAL IV STA (10:05)
[2017-02-15 10:13] LABS: Glucose,Whole Blood 219 mg/dL (75-99)
[2017-02-15 11:18] LABS: Glucose,Whole Blood 177 mg/dL (75-99)
[2017-02-15 12:27] LABS: Glucose,Whole Blood 143 mg/dL (75-99)
[2017-02-15] MEDS: LORazepam 2 MG/ML SYRINGE IV PRN (12:41)
[2017-02-15] MEDS: LEVOFLOXACIN 750MG-D5W PMX 750 MG in DEXTROSE/WATER 1 150ML.BAG IVPB SCH (14:05)
[2017-02-15 14:13] LABS: Glucose,Whole Blood 169 mg/dL (75-99)
[2017-02-15 16:03] LABS: Glucose,Whole Blood 236 mg/dL (75-99)
--- NOTE | 2017-02-15 16:09 | P.PN ---
Subjective 26-year-old female patient, obese, with a type 1 diabetes mellitus currently on insulin pump, in addition to a previous history of hypertension hyperlipidemia and obstructive sleep apnea, was admitted to the hospital because of generalized weakness, cough and chest congestion and increased dyspnea, chills and body aches and fever that evolved over the past 48-72 hours. The patient had a son at home was suffering from respiratory checked infection and he was also having an acute febrile illness. However his condition was mild and he recovered. Since then the patient started feeling sick with above-mentioned constitutions symptoms and progressive addition to most dyspnea and cough and congestion to the point where she was becoming very uncomfortable and she came into the hospital. Chest x-ray showed left lower lobe pulmonary infiltrates/ pneumonia. Influenza screen was positive for influenza B. The patient was placed on oxygen and overnight she was placed on high flow oxygen 10 L per minute nasal cannula. She has still on high flow oxygen and her pulse ox is 91- 92%. She did develop some mild epistaxis overnight and her oxygen source is humidified. No change in mental status. No headache. No neck stiffness. No diarrhea. She did have some nausea and limited emesis earlier which recovered. She feels better compared to yesterday however she still has a congested cough and she is still requiring high flow oxygen. Levaquin was also added as an empiric antibiotic coverage. She is a nonsmoker. No travel history. No aspiration. No previous bouts of pneumonias. No other complaints otherwise. The patient is seen again today 02/13/2017 and the intensive care unit. She was quite tachypneic, tachycardic and required increasing amounts of FiO2 to maintain O2 saturations in the low 90s yesterday afternoon on the pediatric floor and she was transferred here for the same. Her chest x-ray revealed worsening pulmonary infiltrates and small bilateral pleural effusions with associated atelectasis. Arterial blood gases revealed a pO2 of 62, pCO2 29 and a pH of 7.43 and 55% FiO2. She did receive Lasix 40 mg IV, Teflaro was added, IV Solu-Medrol was increased and BiPAP support was utilized for approximately 4 hours. She is seen again today in follow-up. She is awake and alert. She is currently on 15 L of high flow nasal cannula to maintain O2 saturations in the 90s. She states she is breathing slightly better today as compared to yesterday. She continues with a productive cough. Today's chest x-ray is stable possible slight improvement. She is less tachycardic and less tachypneic. White count 13.3. She has been afebrile. Hemodynamically stable. On 02/15/2017 the patient is being seen in follow-up. The patient is still in intensive care unit on high flow oxygen 15 L per minute nasal cannula. On and off she still requiring therapy with BiPAP. She has short of breath. Her cough and congestion have improved. Her chest x-ray still showing stable bilateral lower lobe pulmonary infiltration. She has a good appetite. She is tolerating her diet. No nausea. No vomiting to no change in mental status. She is still on a combination of Teflaro and Levaquin. She is on Tamiflu regarding influenza pneumonia. Cultures of been established and only positive findings is positive basis for for influenza. Hemodynamically stable. No hypotension. Objective - Vital Signs Vital signs: Vital Signs Temp 98.1 F 02/15/17 16:00 Pulse 60 02/15/17 16:01 Resp 21 02/15/17 16:00 BP 144/77 02/15/17 16:00 Pulse Ox 90 L 02/15/17 16:00 Intake & Output 02/14/17 02/15/17 02/15/17 18:59 06:59 18:59 Intake Total 062.595 3694.893 1701.329 Output Total 817 178 5822 Balance 186.562 642.893 -933.671 Weight 83.2 kg 83.2 kg Intake: Intake, IV Titration 008.085 6744.893 1221.329 Amount Ceftaroline Fosamil 600 250 250 mg In Sodium Chloride 0.9 % 250 ml @ 250 mls/hr IVPB Q12HR [facility] Rx#: [id number] Insulin Regular 100 unit 36.562 17.893 21.329 In Sodium Chloride 0.9% 100 ml @ Per Protocol IV .Q0M [facility] Rx#:[id number] Levofloxacin 750Mg-D5w 150 Pmx 750 mg In Dextrose/ Water 1 150ml.bag @ 100 mls/hr IVPB DAILY@1400 [facility] Rx#:[id number] Sodium Chloride 0.9% 1, 700 1000 800 000 ml @ 100 mls/hr IV . Q10H [facility] Rx#:[id number] Oral 480 Output: Urine 443 667 1635 Other: Voiding Method Indwelling Catheter Indwelling Catheter Indwelling Catheter # Bowel Movements 1 - Exam Head exam was generally normal. There was no scleral icterus or corneal arcus. Mucous membranes were moist. My normal neck the patient has significant crowding of the posterior oropharynx. No goiter or neck masses. No thrush. Lungs sounds are diminished bilaterally along with bibasilar crackles worse on the left. There is some scattered rhonchi and wheezes in addition.Cardiac exam revealed the PMI to be normally situated and sized. The rhythm was regular and no extrasystoles were noted during several minutes of auscultation. The first and second heart sounds were normal and physiologic splitting of the second heart sound was noted. There were no murmurs, rubs, clicks, or gallops.Abdominal exam revealed normal bowel sounds. The abdomen was soft, non- tender, and without masses, organomegaly, or appreciable enlargement of the abdominal aorta.Examination of the extremities revealed easily palpable radial, femoral and pedal pulses. There was no cyanosis, clubbing or edema. - Labs CBC & Chem 7: 02/15/17 04:56 02/15/17 04:56 Labs: Abnormal Lab Results - Last 24 Hours (Table) 02/14/17 02/14/17 02/14/17 Range/Units 17:21 18:18 19:55 RBC (3.80-5.40) m/uL Lymphocytes # (1.0-4.8) k/uL Chloride (98-107) mmol/L Carbon Dioxide (22-30) mmol/L Creatinine (0.52-1.04) mg/dL Glucose (74-99) mg/dL POC Glucose (mg/dL) 171 H 169 H 141 H (75-99) mg/dL Calcium (8.4-10.2) mg/dL 02/14/17 02/14/17 02/14/17 Range/Units 21:20 22:03 22:59 RBC (3.80-5.40) m/uL Lymphocytes # (1.0-4.8) k/uL Chloride (98-107) mmol/L Carbon Dioxide (22-30) mmol/L Creatinine (0.52-1.04) mg/dL Glucose (74-99) mg/dL POC Glucose (mg/dL) 155 H 150 H 154 H (75-99) mg/dL Calcium (8.4-10.2) mg/dL 02/15/17 02/15/17 02/15/17 Range/Units 00:00 01:58 04:17 RBC (3.80-5.40) m/uL Lymphocytes # (1.0-4.8) k/uL Chloride (98-107) mmol/L Carbon Dioxide (22-30) mmol/L Creatinine (0.52-1.04) mg/dL Glucose (74-99) mg/dL POC Glucose (mg/dL) 172 H 151 H 129 H (75-99) mg/dL Calcium (8.4-10.2) mg/dL 02/15/17 02/15/17 02/15/17 Range/Units 04:56 04:56 06:06 RBC 3.64 L (3.80-5.40) m/uL Lymphocytes # 0.5 L (1.0-4.8) k/uL Chloride 108 H (98-107) mmol/L Carbon Dioxide 21 L (22-30) mmol/L Creatinine 0.40 L (0.52-1.04) mg/dL Glucose 131 H (74-99) mg/dL POC Glucose (mg/dL) 150 H (75-99) mg/dL Calcium 7.8 L (8.4-10.2) mg/dL 02/15/17 02/15/17 02/15/17 Range/Units 08:03 10:11 11:16 RBC (3.80-5.40) m/uL Lymphocytes # (1.0-4.8) k/uL Chloride (98-107) mmol/L Carbon Dioxide (22-30) mmol/L Creatinine (0.52-1.04) mg/dL Glucose (74-99) mg/dL POC Glucose (mg/dL) 155 H 219 H 177 H (75-99) mg/dL Calcium (8.4-10.2) mg/dL 02/15/17 02/15/17 02/15/17 Range/Units 12:26 14:12 16:02 RBC (3.80-5.40) m/uL Lymphocytes # (1.0-4.8) k/uL Chloride (98-107) mmol/L Carbon Dioxide (22-30) mmol/L Creatinine (0.52-1.04) mg/dL Glucose (74-99) mg/dL POC Glucose (mg/dL) 143 H 169 H 236 H (75-99) mg/dL Calcium (8.4-10.2) mg/dL Assessment and Plan Plan: Assessment 1 acute pneumonia bibasilar worse on the left. Rule out acute viral influenza and pneumonia. Rule out superimposed bacterial pneumonia. on 02/15/2017, the patient is being seen in follow-up. I haven't seen much of progress over the past 2448 hrs. however there has been no interval worsening. Chest x-ray still showing stable bilateral lower lobe pulmonary infiltration. The patient is being treated for an influenza pneumonia with Tamiflu 75 mg by mouth twice a day. I also had to cover with empiric antibiotic coverage including coverage for MRSA and for that reason I give the patient a combination of Teflaro and Levaquin. She is on high flow oxygen at 15 L per minute nasal cannula. Pulse oxing barely above 90%. Cough and congestion and other respiratory symptoms improved. She is still quite hypoxic. 2 acute hypoxic respiratory failure secondary to above. 3 CVA/TIA, history of 4 Diabetes mellitus type 1 maintained on insulin pump on outpatient basis. The patient had developed some steroid-induced hyperglycemia and the insulin pump was discontinued and she was initiated on a insulin drip currently at 5 units per hour. 5 hyperlipidemia 6 hypertension 7 ADHD 8 obstructive sleep apnea, not receiving any CPAP therapy at this point. Plan continue same treatment. Kept on IV fluids to KVO. Give the patient dose of Lasix 40 mg every push. Repeat chest x-ray in the morning. Keep the patient ICU as long as she continues to have high oxygen requirements.repeat chest x- ray in the morning . Continue the same maintenance treatment and supportive care. We'll continue to follow.
--- NOTE | 2017-02-15 17:05 | PN ---
DATE OF SERVICE: 02/15/2017 This 26-year-old woman who was admitted with acute influenza B also had significant features of bilateral pneumonia as well as acute respiratory failure. The patient was on BiPAP last night, but today the patient is on high-flow nasal cannula. The patient is on antiviral, antibiotics as well as steroids. Chest x-ray showed some minimal improvement. PAST MEDICAL HISTORY: Reviewed. REVIEW OF SYSTEMS: CARDIOVASCULAR: As mentioned earlier. RESPIRATORY: As mentioned earlier. GI: No nausea. : No dysuria. NERVOUS: No numbness or weakness. CURRENT MEDICATIONS: 1. Tylenol 650 q.4 p.r.n. 2. Aurora 5 mg q.4 p.r.n. 3. DuoNeb q.i.d. and p.r.n. 4. Ceftaroline 600 mg IV b.i.d. 5. Lovenox 40 mg p.o. daily. 6. Mucinex 600 mg p.o. b.i.d. 7. Dilaudid 0.5 mg q.4 p.r.n. 8. Humalog scale. 9. Toradol. 10. Levaquin 750 daily. 11. Ativan 1 mg q.4 p.r.n. 12. Solu-Medrol 60 IV every 6 hours. 13. IV insulin drip with replacement protocols. 14. Narcan p.r.n. 15. Zofran p.r.n. 16. Protonix 40 mg IV daily. PHYSICAL EXAM: The patient is alert and oriented x3. Pulse 64, blood pressure 119/76, respirations 16, temperature normal, pulse ox 96% on 10L high-flow nasal cannula. HEENT: Conjunctivae normal. Oral mucosa moist. NECK: No jugular venous distension, carotid bruits. No lymph node enlargement. CARDIOVASCULAR SYSTEM: S1, S2 muffled. RESPIRATORY: Breath sounds diminished at the bases. A few scattered rhonchi and crackles. ABDOMEN: Soft, nontender. No mass palpable. LEGS: No edema. No swelling. NERVOUS SYSTEM: Higher functions mentioned earlier. Moves all 4 limbs. No focal motor or sensory deficits. LYMPHATIC: No lymph nodes pap in neck, axillae or groin. SKIN: No ulcer, rash or bleeding. LABS: Accu-Cheks 177, 143, 169. Otherwise, CBC noted. Hemoglobin is 11.7. Other labs are noted. ASSESSMENT: 1. Acute influenza B with bilateral pneumonia, left more than right, possibly gram-negative with sepsis and acute hypoxic respiratory failure on bi-level positive airway pressure, present on admission. 2. Diabetes mellitus type 1, uncontrolled on insulin drip. 3. History of insulin pump. 4. Hypoalbuminemia, mild. 5. Anemia, microcytic. 6. Hyponatremia. 7. Mild hypocalcemia. 8. Increased vomiting and inability to keep anything down because of acute gastritis. 9. History of cerebrovascular accident, transient ischemic attack. 10. Hypertension. 11. Hyperlipidemia. 12. History of sleep apnea. 13. History of migraines. 14. History of degenerative joint disease. 15. History of section. 16. History attention deficit hyperactivity disorder. 17. History of anxiety. 18. Obesity with body mass index of 31.2. 19. FULL CODE. RECOMMENDATIONS AND DISCUSSION: In this 26-year-old woman who presented with multiple complex medical issues, will monitor the patient closely, continue with the current medications, antiviral agents and continue with steroids, continue with antibiotics. Otherwise, I also recommend to continue with Protonix and symptomatic treatment also provided. Further recommendations per Dr. Jackson. Otherwise, guarded prognosis because of multiple complex medical issues. Further recommendations to follow. SLAVAD
[2017-02-15] MEDS: INSULIN REGULAR 100 UNIT in SODIUM CHLORIDE 0.9% 100 ML IV SCH (17:12)
[2017-02-15 17:56] LABS: Glucose,Whole Blood 165 mg/dL (75-99)
[2017-02-15 18:31] LABS: Glucose,Whole Blood 152 mg/dL (75-99)
[2017-02-15 20:06] LABS: Glucose,Whole Blood 200 mg/dL (75-99)
[2017-02-15 21:27] LABS: Glucose,Whole Blood 141 mg/dL (75-99)
[2017-02-15 22:17] LABS: Glucose,Whole Blood 140 mg/dL (75-99)
[2017-02-15] MEDS ORDERED: Magnesium Replacement Protocol 1 EACH MISC MISCELLANE PRN (23:37)
[2017-02-15] MEDS ORDERED: MAGNESIUM SULFATE-D5W PMX 1 GM in DEXTROSE/WATER 1 100ML.BAG IVPB SCH (23:45)
[2017-02-16 00:11] LABS: Glucose,Whole Blood 168 mg/dL (75-99)
[2017-02-16] MEDS: methylPREDNISolone SOD SUCCI 125 MG/2 ML VIAL IV SCH ×5 (00:16→23:50)
[2017-02-16 02:05] LABS: Glucose,Whole Blood 184 mg/dL (75-99)
[2017-02-16] MEDS: IPRATROPIUM-ALBUTEROL 3 ML NEB INHALATION SCH ×6 (03:04→23:57)
[2017-02-16 03:55] LABS: Glucose,Whole Blood 129 mg/dL (75-99)
[2017-02-16 04:35] LABS: Basophils # (A) 0.1 k/uL (0-0.2); Basophils % (A) 1 %; CH 32.8; CHCM 33.4; Eosinophils % (A) 0 %; HCT 35.9 % (34.0-46.0); HDW 2.32; HGB 11.7 gm/dL (11.4-16.0); Luc # (Auto) 0.09; Luc % (Auto) 1; Lymphocytes # (A) 0.4 k/uL (1.0-4.8); Lymphocytes % (A) 7 %; MCH 32.1 pg (25.0-35.0); MCHC 32.6 g/dL (31.0-37.0); MCV 98.5 fL (80.0-100.0); Monocytes # (A) 0.2 k/uL (0-1.0); Monocytes % (A) 4 %; Neutrophils # (A) 5.6 k/uL (1.3-7.7); Neutrophils % (A) 87 %; RBC 3.65 m/uL (3.80-5.40); RDW 12.4 % (11.5-15.5); WBC 6.4 k/uL (3.8-10.6); WBC (Perox) 7.14
[2017-02-16 04:48] LABS: Anion Gap 10 mmol/L; Blood Urea Nitrogen 12 mg/dL (7-17); Calcium 7.9 mg/dL (8.4-10.2); Carbon Dioxide 25 mmol/L (22-30); Chloride 104 mmol/L (98-107); Glucose 135 mg/dL (74-99); Magnesium 2.1 mg/dL (1.6-2.3); Non-African American GFR(MDRD) >60 (>60 ml/min/1.73 sqM); Phosphorous 3.1 mg/dL (2.5-4.5); Potassium 3.6 mmol/L (3.5-5.1); Sodium 139 mmol/L (137-145)
[2017-02-16] MEDS ORDERED: POTASSIUM CHLORIDE ER 20 MEQ TAB.ER PO SCH (06:00)
[2017-02-16 06:04] LABS: Glucose,Whole Blood 163 mg/dL (75-99)
[2017-02-16] MEDS: SODIUM CHLORIDE 0.9% 1,000 ML IV SCH ×3 (06:06→23:51)
--- NOTE | 2017-02-16 07:05 | XR ---
EXAMINATION TYPE: XR chest 1V portable DATE OF EXAM: 02/16/2017 6:36 AM CLINICAL HISTORY: Difficulty breathing progress study. TECHNIQUE: Single AP portable upright view of the chest is obtained. COMPARISON: Chest x-ray from one day earlier FINDINGS: There is persistent bibasilar opacity silhouetting right hemidiaphragm. Upper lungs remain clear without pneumothorax. Cardiac silhouette size is stable and within normal limits. Osseous stru ctures are intact IMPRESSION: Overall stable findings, persistent bilateral lower lung edema and/or infiltrates.
[2017-02-16 07:15] LABS: Glucose,Whole Blood 143 mg/dL (75-99)
[2017-02-16] MEDS: CEFTAROLINE FOSAMIL 600 MG in SODIUM CHLORIDE 0.9% 250 ML IVPB SCH ×2 (08:38→20:46)
[2017-02-16] MEDS: ENOXAPARIN 40 MG/0.4 ML SYRINGE SQ SCH (08:39)
[2017-02-16] MEDS: PANTOPRAZOLE 40 MG/10 ML VIAL IV SCH (08:39)
[2017-02-16] MEDS ORDERED: FUROSEMIDE 10 MG/ML 4 ML VIAL IV STA (09:16)
[2017-02-16 09:52] LABS: Glucose,Whole Blood 196 mg/dL (75-99)
[2017-02-16 11:50] LABS: Glucose,Whole Blood 267 mg/dL (75-99)
--- NOTE | 2017-02-16 13:04 | P.PN ---
Subjective 26-year-old female patient, obese, with a type 1 diabetes mellitus currently on insulin pump, in addition to a previous history of hypertension hyperlipidemia and obstructive sleep apnea, was admitted to the hospital because of generalized weakness, cough and chest congestion and increased dyspnea, chills and body aches and fever that evolved over the past 48-72 hours. The patient had a son at home was suffering from respiratory checked infection and he was also having an acute febrile illness. However his condition was mild and he recovered. Since then the patient started feeling sick with above-mentioned constitutions symptoms and progressive addition to most dyspnea and cough and congestion to the point where she was becoming very uncomfortable and she came into the hospital. Chest x-ray showed left lower lobe pulmonary infiltrates/ pneumonia. Influenza screen was positive for influenza B. The patient was placed on oxygen and overnight she was placed on high flow oxygen 10 L per minute nasal cannula. She has still on high flow oxygen and her pulse ox is 91- 92%. She did develop some mild epistaxis overnight and her oxygen source is humidified. No change in mental status. No headache. No neck stiffness. No diarrhea. She did have some nausea and limited emesis earlier which recovered. She feels better compared to yesterday however she still has a congested cough and she is still requiring high flow oxygen. Levaquin was also added as an empiric antibiotic coverage. She is a nonsmoker. No travel history. No aspiration. No previous bouts of pneumonias. No other complaints otherwise. The patient is seen again today 02/13/2017 and the intensive care unit. She was quite tachypneic, tachycardic and required increasing amounts of FiO2 to maintain O2 saturations in the low 90s yesterday afternoon on the pediatric floor and she was transferred here for the same. Her chest x-ray revealed worsening pulmonary infiltrates and small bilateral pleural effusions with associated atelectasis. Arterial blood gases revealed a pO2 of 62, pCO2 29 and a pH of 7.43 and 55% FiO2. She did receive Lasix 40 mg IV, Teflaro was added, IV Solu-Medrol was increased and BiPAP support was utilized for approximately 4 hours. She is seen again today in follow-up. She is awake and alert. She is currently on 15 L of high flow nasal cannula to maintain O2 saturations in the 90s. She states she is breathing slightly better today as compared to yesterday. She continues with a productive cough. Today's chest x-ray is stable possible slight improvement. She is less tachycardic and less tachypneic. White count 13.3. She has been afebrile. Hemodynamically stable. On 02/15/2017 the patient is being seen in follow-up. The patient is still in intensive care unit on high flow oxygen 15 L per minute nasal cannula. On and off she still requiring therapy with BiPAP. She has short of breath. Her cough and congestion have improved. Her chest x-ray still showing stable bilateral lower lobe pulmonary infiltration. She has a good appetite. She is tolerating her diet. No nausea. No vomiting to no change in mental status. She is still on a combination of Teflaro and Levaquin. She is on Tamiflu regarding influenza pneumonia. Cultures of been established and only positive findings is positive basis for for influenza. Hemodynamically stable. No hypotension. On 02/16/2017 the patient is being seen in follow-up. She is slightly improved compared to yesterday. Her FiO2 has been cut down to 10 L per minute nasal cannula. Chest x-ray still showing bilateral lower lobe pulmonary infiltrates. On and off she is using the BiPAP overnight at a pressure of 10 over 5 cm of water. She has no other new complaints. No change in mental status. No nausea or vomiting. No diarrhea. No change in mental status. No other significant issues over the past 24 hours. Objective - Vital Signs Vital signs: Vital Signs Temp 98.0 F 02/16/17 12:00 Pulse 92 02/16/17 12:00 Resp 23 02/16/17 12:00 BP 148/76 02/16/17 12:00 Pulse Ox 92 L 02/16/17 12:00 Intake & Output 02/15/17 02/16/17 02/16/17 18:59 06:59 18:59 Intake Total 2021.008 1737.809 792.323 Output Total 2860 845 1675 Balance -838.992 892.809 -882.677 Weight 83.2 kg 81.8 kg 81.8 kg Intake: Intake, IV Titration 9677.050 2991.809 552.323 Amount Ceftaroline Fosamil 600 250 250 250 mg In Sodium Chloride 0.9 % 250 ml @ 250 mls/hr IVPB Q12HR [facility] Rx#: [id number] Insulin Regular 100 unit 41.008 27.809 2.323 In Sodium Chloride 0.9% 100 ml @ Per Protocol IV .Q0M [facility] Rx#:[id number] Levofloxacin 750Mg-D5w 150 Pmx 750 mg In Dextrose/ Water 1 150ml.bag @ 100 mls/hr IVPB DAILY@1400 [facility] Rx#:[id number] Magnesium Sulfate-D5w Pmx 0 1 gm In Dextrose/Water 1 100ml.bag @ 100 mls/hr IVPB Q1H [facility] Rx#: [id number] Sodium Chloride 0.9% 1, 1100 1100 300 000 ml @ 100 mls/hr IV . Q10H [facility] Rx#:[id number] Oral 480 360 240 Output: Urine 2860 845 1675 Other: Voiding Method Indwelling Catheter Indwelling Catheter Indwelling Catheter # Voids 1 - Exam Head exam was generally normal. There was no scleral icterus or corneal arcus. Mucous membranes were moist. My normal neck the patient has significant crowding of the posterior oropharynx. No goiter or neck masses. No thrush. Lungs sounds are diminished bilaterally along with bibasilar crackles worse on the left. There is some scattered rhonchi and wheezes in addition.Cardiac exam revealed the PMI to be normally situated and sized. The rhythm was regular and no extrasystoles were noted during several minutes of auscultation. The first and second heart sounds were normal and physiologic splitting of the second heart sound was noted. There were no murmurs, rubs, clicks, or gallops.Abdominal exam revealed normal bowel sounds. The abdomen was soft, non- tender, and without masses, organomegaly, or appreciable enlargement of the abdominal aorta.Examination of the extremities revealed easily palpable radial, femoral and pedal pulses. There was no cyanosis, clubbing or edema. - Labs CBC & Chem 7: 02/16/17 03:44 02/16/17 08:53 Labs: Abnormal Lab Results - Last 24 Hours (Table) 02/15/17 02/15/17 02/15/17 Range/Units 14:12 16:02 17:55 RBC (3.80-5.40) m/uL Lymphocytes # (1.0-4.8) k/uL Creatinine (0.52-1.04) mg/dL Glucose (74-99) mg/dL POC Glucose (mg/dL) 169 H 236 H 165 H (75-99) mg/dL Calcium (8.4-10.2) mg/dL 02/15/17 02/15/17 02/15/17 Range/Units 18:30 20:04 21:25 RBC (3.80-5.40) m/uL Lymphocytes # (1.0-4.8) k/uL Creatinine (0.52-1.04) mg/dL Glucose (74-99) mg/dL POC Glucose (mg/dL) 152 H 200 H 141 H (75-99) mg/dL Calcium (8.4-10.2) mg/dL 02/15/17 02/16/17 02/16/17 Range/Units 22:15 00:09 02:04 RBC (3.80-5.40) m/uL Lymphocytes # (1.0-4.8) k/uL Creatinine (0.52-1.04) mg/dL Glucose (74-99) mg/dL POC Glucose (mg/dL) 140 H 168 H 184 H (75-99) mg/dL Calcium (8.4-10.2) mg/dL 02/16/17 02/16/17 02/16/17 Range/Units 03:44 03:44 03:52 RBC 3.65 L (3.80-5.40) m/uL Lymphocytes # 0.4 L (1.0-4.8) k/uL Creatinine 0.42 L (0.52-1.04) mg/dL Glucose 135 H (74-99) mg/dL POC Glucose (mg/dL) 129 H (75-99) mg/dL Calcium 7.9 L (8.4-10.2) mg/dL 02/16/17 02/16/17 02/16/17 Range/Units 06:03 07:14 09:50 RBC (3.80-5.40) m/uL Lymphocytes # (1.0-4.8) k/uL Creatinine (0.52-1.04) mg/dL Glucose (74-99) mg/dL POC Glucose (mg/dL) 163 H 143 H 196 H (75-99) mg/dL Calcium (8.4-10.2) mg/dL 02/16/17 Range/Units 11:50 RBC (3.80-5.40) m/uL Lymphocytes # (1.0-4.8) k/uL Creatinine (0.52-1.04) mg/dL Glucose (74-99) mg/dL POC Glucose (mg/dL) 267 H (75-99) mg/dL Calcium (8.4-10.2) mg/dL Assessment and Plan Plan: Assessment 1 acute pneumonia bibasilar worse on the left. Rule out acute viral influenza and pneumonia. Rule out superimposed bacterial pneumonia. on 02/15/2017, the patient is being seen in follow-up. I haven't seen much of progress over the past 2448 hrs. however there has been no interval worsening. Chest x-ray still showing stable bilateral lower lobe pulmonary infiltration. The patient is being treated for an influenza pneumonia with Tamiflu 75 mg by mouth twice a day. I also had to cover with empiric antibiotic coverage including coverage for MRSA and for that reason I give the patient a combination of Teflaro and Levaquin. She is on high flow oxygen at 15 L per minute nasal cannula. Pulse oxing barely above 90%. Cough and congestion and other respiratory symptoms improved. She is still quite hypoxic. On 02/16/2017, I'm seeing this patient in follow-up. The patient is doing well. There has been some slight improvement in her oxygenation and she is down to 10 L of oxygen by nasal cannula. She still utilizing BiPAP on and off overnight. Chest x-ray shows stable pulmonary infiltrates in lung bases with some limited improvement if any. I'll keep in ICU for 24 hours. 2 acute hypoxic respiratory failure secondary to above. 3 CVA/TIA, history of 4 Diabetes mellitus type 1 maintained on insulin pump on outpatient basis. The patient had developed some steroid-induced hyperglycemia and the insulin pump was discontinued and she was initiated on a insulin drip currently at 5 units per hour. 5 hyperlipidemia 6 hypertension 7 ADHD 8 obstructive sleep apnea, not receiving any CPAP therapy at this point. Plan continue same treatment. anticipate further improvement over the next 24 hours. We'll keep the patient ICU as long as her oxygen oxygen requirements remained high. The patient will have a follow-up chest x-ray in the morning. We'll give additional dose of Lasix. Repeat chest x-ray in the morning. We'll follow.
[2017-02-16 14:03] LABS: Glucose,Whole Blood 211 mg/dL (75-99)
[2017-02-16] MEDS: LEVOFLOXACIN 750MG-D5W PMX 750 MG in DEXTROSE/WATER 1 150ML.BAG IVPB SCH (15:07)
[2017-02-16 16:11] LABS: Glucose,Whole Blood 205 mg/dL (75-99)
[2017-02-16 17:53] LABS: Glucose,Whole Blood 140 mg/dL (75-99)
[2017-02-16] MEDS: INSULIN REGULAR 100 UNIT in SODIUM CHLORIDE 0.9% 100 ML IV SCH (18:23)
[2017-02-16] MEDS: guaiFENesin 600 MG TABLET.ER PO PRN (19:23)
[2017-02-16 20:33] LABS: Glucose,Whole Blood 199 mg/dL (75-99)
[2017-02-16] MEDS: HYDROcodone/APAP 5-325MG 1 EACH TAB PO PRN (20:45)
[2017-02-16] MEDS: ONDANSETRON 4 MG/2 ML VIAL IVP PRN (21:46)
[2017-02-16 21:58] LABS: Glucose,Whole Blood 151 mg/dL (75-99)
--- NOTE | 2017-02-16 22:52 | PN ---
DATE OF SERVICE: 02/16/2017 This 26-year-old woman who was admitted with acute influenza B had a bilateral pneumonia. The patient also had acute respiratory failure. The patient is titrated down to 5L nasal cannula. The patient is on BiPAP at night and Dr. Jackson is following the patient closely. The most recent chest x-ray done today which was personally reviewed by showed overall stable findings and bilateral lung infiltrates also noted. PAST MEDICAL HISTORY: Reviewed. REVIEW OF SYSTEMS: CARDIOVASCULAR: As mentioned earlier. RESPIRATORY: As mentioned earlier. GI: No nausea. : No dysuria. NERVOUS: No numbness or weakness. Current medications are reviewed, include: 1. Tylenol 650 every 6 hours p.r.n. 2. [place] 5 mg q.4 p.r.n. 3. DuoNeb q.i.d. and p.r.n. 4. Ceftaroline 600 mg b.i.d. 5. Lovenox 40 mg subcu daily. 6. Mucinex 600 mg b.i.d. 7. Dilaudid 0.4 mg q.24 hours. 8. Levaquin 750 daily. 9. Ativan 1 mg q.4 p.r.n. 10. Solu-Medrol 60 IV. 11. Insulin drip. 12. Narcan. 13. Protonix 40. 14. Restoril. PHYSICAL EXAM: Patient is alert and oriented x3. Pulse is 95, blood pressure 127/69, respirations 22, temperature is normal, pulse ox 93% on 5L. HEENT: Conjunctivae normal. Oral mucosa moist. NECK: No jugular venous distension. No carotid bruits. No lymph node enlargement. CARDIOVASCULAR: S1 and S2 muffled. RESPIRATORY: Breath sounds diminished in the bases. A few scattered rhonchi and crackles. ABDOMEN: Soft. Mild diffuse discomfort on palpation. LEGS: No edema. No swelling. NERVOUS SYSTEM: Higher functions as mentioned. Moves all 4 limbs. No focal motor or sensory deficits. Diffusely weak. LYMPHATIC: No lymph nodes palpable in neck, axillae or groins. SKIN: No ulcer, rash or bleeding. LABS: Glucose 211 and 205. WBC 6.4, hemoglobin is 11.7. Sodium 113, potassium 4. ASSESSMENT: 1. Acute influenza B with bilateral pneumonia, left more than the right, with possible gram-negative sepsis and acute hypoxic respiratory failure on bi-level positive airway pressure at night, present on admission. 2. Diabetes type 1, uncontrolled, on IV insulin drip. 3. History of insulin pump. 4. Hypoalbuminemia, mild. 5. Anemia, normocytic. 6. Hyponatremia. 7. Mild hypocalcemia. 8. Increased vomiting, unable to keep anything down because of acute gastritis, present on admission. 9. History of cerebrovascular accident, transient ischemic attack. 10. Hypertension. 11. Hyperlipidemia. 12. History of sleep apnea. 13. History of migraines. 14. History of degenerative joint disease. 15. History of section. 16. History of attention deficit hyperactivity disorder. 17. History of anxiety. 18. Obesity with body mass index of 31.2. 19. FULL CODE. RECOMMENDATIONS AND DISCUSSION: Recommend to continue current medications, continue symptomatic treatment, continue with antibiotics, continue with steroids, continue with bronchodilators. Closely monitor with Dr. Jackson. Continue with the high-flow oxygen. Repeat labs. Guarded prognosis because of multiple complex medical issues. Further recommendations to follow.
[2017-02-16 23:59] LABS: Glucose,Whole Blood 109 mg/dL (75-99)
[2017-02-17] MEDS: HYDROcodone/APAP 5-325MG 1 EACH TAB PO PRN ×4 (00:50→20:34)
[2017-02-17 00:55] LABS: Glucose,Whole Blood 167 mg/dL (75-99)
[2017-02-17 02:21] LABS: Glucose,Whole Blood 173 mg/dL (75-99)
[2017-02-17] MEDS: IPRATROPIUM-ALBUTEROL 3 ML NEB INHALATION SCH ×6 (03:30→23:27)
[2017-02-17 03:47] LABS: Glucose,Whole Blood 134 mg/dL (75-99)
[2017-02-17 05:06] LABS: Glucose,Whole Blood 206 mg/dL (75-99)
[2017-02-17] MEDS: methylPREDNISolone SOD SUCCI 125 MG/2 ML VIAL IV SCH (05:08)
[2017-02-17 05:12] LABS: Basophils % (A) 0 %; CH 32.3; CHCM 33.5; Eosinophils % (A) 0 %; HCT 35.3 % (34.0-46.0); HDW 2.38; HGB 11.8 gm/dL (11.4-16.0); Luc # (Auto) 0.06; Luc % (Auto) 1; Lymphocytes # (A) 0.4 k/uL (1.0-4.8); Lymphocytes % (A) 4 %; MCH 32.4 pg (25.0-35.0); MCHC 33.4 g/dL (31.0-37.0); Mean Platelet Volume 8.1; Monocytes # (A) 0.4 k/uL (0-1.0); Monocytes % (A) 4 %; Neutrophils # (A) 7.9 k/uL (1.3-7.7); Neutrophils % (A) 90 %; RBC 3.64 m/uL (3.80-5.40); RDW 12.3 % (11.5-15.5); WBC 8.8 k/uL (3.8-10.6); WBC (Perox) 9.41
[2017-02-17 05:20] LABS: Anion Gap 10 mmol/L; Blood Urea Nitrogen 11 mg/dL (7-17); Carbon Dioxide 26 mmol/L (22-30); Chloride 101 mmol/L (98-107); Glucose 192 mg/dL (74-99); Magnesium 1.9 mg/dL (1.6-2.3); Non-African American GFR(MDRD) >60 (>60 ml/min/1.73 sqM); Phosphorous 3.4 mg/dL (2.5-4.5); Potassium 3.7 mmol/L (3.5-5.1); Sodium 137 mmol/L (137-145)
[2017-02-17] MEDS: MAGNESIUM SULFATE-D5W PMX 1 GM in DEXTROSE/WATER 1 100ML.BAG IVPB SCH ×2 (05:51→06:58)
[2017-02-17 05:56] LABS: Glucose,Whole Blood 186 mg/dL (75-99)
[2017-02-17] MEDS ORDERED: POTASSIUM CHLORIDE ER 20 MEQ TAB.ER PO SCH (06:00)
[2017-02-17 06:57] LABS: Glucose,Whole Blood 168 mg/dL (75-99)
--- NOTE | 2017-02-17 07:48 | XR ---
EXAMINATION TYPE: XR chest 1V portable DATE OF EXAM: 02/17/2017 6:31 AM COMPARISON: Prior chest x-ray AP January 2017 HISTORY: Shortness of breath TECHNIQUE: Single frontal view of the chest is obtained. FINDINGS: Abnormal increased attenuation present at the lung bases, heart is enlarged. No pneumothor ax. There are overlying cardiac leads. IMPRESSION: Similar findings to prior exam. There may be basilar pneumonia, airspace disease.
[2017-02-17] MEDS: PANTOPRAZOLE 40 MG TABLET PO SCH (07:51)
[2017-02-17] MEDS: ENOXAPARIN 40 MG/0.4 ML SYRINGE SQ SCH (07:52)
[2017-02-17] MEDS: CEFTAROLINE FOSAMIL 600 MG in SODIUM CHLORIDE 0.9% 250 ML IVPB SCH ×2 (07:52→20:34)
[2017-02-17 08:09] LABS: Glucose,Whole Blood 169 mg/dL (75-99)
[2017-02-17] MEDS ORDERED: FUROSEMIDE 10 MG/ML 2 ML VIAL IV ONE (09:51)
[2017-02-17 10:10] LABS: Glucose,Whole Blood 177 mg/dL (75-99)
[2017-02-17 11:59] LABS: Glucose,Whole Blood 178 mg/dL (75-99)
[2017-02-17] MEDS: POTASSIUM CHLORIDE 10 MEQ, LIDOCAINE 2% INJ 10 MG in SODIUM CHLORIDE 0.9% 100 ML IV SCH ×2 (11:59→13:07)
--- NOTE | 2017-02-17 12:08 | P.PN ---
Subjective 26-year-old female patient, obese, with a type 1 diabetes mellitus currently on insulin pump, in addition to a previous history of hypertension hyperlipidemia and obstructive sleep apnea, was admitted to the hospital because of generalized weakness, cough and chest congestion and increased dyspnea, chills and body aches and fever that evolved over the past 48-72 hours. The patient had a son at home was suffering from respiratory checked infection and he was also having an acute febrile illness. However his condition was mild and he recovered. Since then the patient started feeling sick with above-mentioned constitutions symptoms and progressive addition to most dyspnea and cough and congestion to the point where she was becoming very uncomfortable and she came into the hospital. Chest x-ray showed left lower lobe pulmonary infiltrates/ pneumonia. Influenza screen was positive for influenza B. The patient was placed on oxygen and overnight she was placed on high flow oxygen 10 L per minute nasal cannula. She has still on high flow oxygen and her pulse ox is 91- 92%. She did develop some mild epistaxis overnight and her oxygen source is humidified. No change in mental status. No headache. No neck stiffness. No diarrhea. She did have some nausea and limited emesis earlier which recovered. She feels better compared to yesterday however she still has a congested cough and she is still requiring high flow oxygen. Levaquin was also added as an empiric antibiotic coverage. She is a nonsmoker. No travel history. No aspiration. No previous bouts of pneumonias. No other complaints otherwise. The patient is seen again today 02/13/2017 and the intensive care unit. She was quite tachypneic, tachycardic and required increasing amounts of FiO2 to maintain O2 saturations in the low 90s yesterday afternoon on the pediatric floor and she was transferred here for the same. Her chest x-ray revealed worsening pulmonary infiltrates and small bilateral pleural effusions with associated atelectasis. Arterial blood gases revealed a pO2 of 62, pCO2 29 and a pH of 7.43 and 55% FiO2. She did receive Lasix 40 mg IV, Teflaro was added, IV Solu-Medrol was increased and BiPAP support was utilized for approximately 4 hours. She is seen again today in follow-up. She is awake and alert. She is currently on 15 L of high flow nasal cannula to maintain O2 saturations in the 90s. She states she is breathing slightly better today as compared to yesterday. She continues with a productive cough. Today's chest x-ray is stable possible slight improvement. She is less tachycardic and less tachypneic. White count 13.3. She has been afebrile. Hemodynamically stable. On 02/15/2017 the patient is being seen in follow-up. The patient is still in intensive care unit on high flow oxygen 15 L per minute nasal cannula. On and off she still requiring therapy with BiPAP. She has short of breath. Her cough and congestion have improved. Her chest x-ray still showing stable bilateral lower lobe pulmonary infiltration. She has a good appetite. She is tolerating her diet. No nausea. No vomiting to no change in mental status. She is still on a combination of Teflaro and Levaquin. She is on Tamiflu regarding influenza pneumonia. Cultures of been established and only positive findings is positive basis for for influenza. Hemodynamically stable. No hypotension. On 02/16/2017 the patient is being seen in follow-up. She is slightly improved compared to yesterday. Her FiO2 has been cut down to 10 L per minute nasal cannula. Chest x-ray still showing bilateral lower lobe pulmonary infiltrates. On and off she is using the BiPAP overnight at a pressure of 10 over 5 cm of water. She has no other new complaints. No change in mental status. No nausea or vomiting. No diarrhea. No change in mental status. No other significant issues over the past 24 hours. On 02/17/2017 the patient is doing much better. I was able to wean down the FiO2 from 15 L high flow down to 10 L high flow and down to 3 L/m nasal cannula. Her saturation is around 1994%. Her cough has subsided. She is not utilizing the BiPAP anymore. She remains on Tamiflu in addition to a combination of Teflaro and Levaquin. No new complaints otherwise for now. No change in mental status. She is a bit weak and she may benefit from rehabilitation. No nausea. No vomiting. No emesis no swelling. The patient has been diuresed adequately. Objective - Vital Signs Vital signs: Vital Signs Temp 97.5 F L 02/17/17 04:00 Pulse 88 02/17/17 11:15 Resp 21 02/17/17 10:00 BP 115/62 02/17/17 10:00 Pulse Ox 96 02/17/17 10:00 Intake & Output 02/16/17 02/17/17 02/17/17 18:59 06:59 18:59 Intake Total 2592.583 7347.447 580 Output Total 7865 1125 495 Balance -6311.449 923.447 85 Weight 81.8 kg 79.5 kg 79.5 kg Intake: Intake, IV Titration 1984.171 4461.447 340 Amount Ceftaroline Fosamil 600 250 250 250 mg In Sodium Chloride 0.9 % 250 ml @ 250 mls/hr IVPB Q12HR [facility] Rx#: [id number] Insulin Regular 100 unit 13.551 38.447 In Sodium Chloride 0.9% 100 ml @ Per Protocol IV .Q0M [facility] Rx#:[id number] Levofloxacin 750Mg-D5w 150 Pmx 750 mg In Dextrose/ Water 1 150ml.bag @ 100 mls/hr IVPB DAILY@1400 [facility] Rx#:[id number] Magnesium Sulfate-D5w Pmx 200 1 gm In Dextrose/Water 1 100ml.bag @ 100 mls/hr IVPB Q1H [facility] Rx#: [id number] Sodium Chloride 0.9% 1, 900 1200 90 000 ml @ 5 mls/hr IV . Q24H [facility] Rx#:[id number] Oral 240 360 240 Output: Urine 7865 1125 495 Other: Voiding Method Indwelling Catheter Indwelling Catheter Indwelling Catheter # Voids 1 1 - Exam Head exam was generally normal. There was no scleral icterus or corneal arcus. Mucous membranes were moist. My normal neck the patient has significant crowding of the posterior oropharynx. No goiter or neck masses. No thrush. Lungs sounds are diminished bilaterally along with bibasilar crackles worse on the left. There is some scattered rhonchi and wheezes in addition.Cardiac exam revealed the PMI to be normally situated and sized. The rhythm was regular and no extrasystoles were noted during several minutes of auscultation. The first and second heart sounds were normal and physiologic splitting of the second heart sound was noted. There were no murmurs, rubs, clicks, or gallops.Abdominal exam revealed normal bowel sounds. The abdomen was soft, non- tender, and without masses, organomegaly, or appreciable enlargement of the abdominal aorta.Examination of the extremities revealed easily palpable radial, femoral and pedal pulses. There was no cyanosis, clubbing or edema. - Labs CBC & Chem 7: 02/17/17 04:47 02/17/17 08:49 Labs: Abnormal Lab Results - Last 24 Hours (Table) 02/16/17 02/16/17 02/16/17 Range/Units 14:00 16:10 17:52 RBC (3.80-5.40) m/uL Neutrophils # (1.3-7.7) k/uL Lymphocytes # (1.0-4.8) k/uL Potassium (3.5-5.1) mmol/L Creatinine (0.52-1.04) mg/dL Glucose (74-99) mg/dL POC Glucose (mg/dL) 211 H 205 H 140 H (75-99) mg/dL Calcium (8.4-10.2) mg/dL 02/16/17 02/16/17 02/16/17 Range/Units 20:32 21:57 23:57 RBC (3.80-5.40) m/uL Neutrophils # (1.3-7.7) k/uL Lymphocytes # (1.0-4.8) k/uL Potassium (3.5-5.1) mmol/L Creatinine (0.52-1.04) mg/dL Glucose (74-99) mg/dL POC Glucose (mg/dL) 199 H 151 H 109 H (75-99) mg/dL Calcium (8.4-10.2) mg/dL 02/17/17 02/17/17 02/17/17 Range/Units 00:52 02:20 03:45 RBC (3.80-5.40) m/uL Neutrophils # (1.3-7.7) k/uL Lymphocytes # (1.0-4.8) k/uL Potassium (3.5-5.1) mmol/L Creatinine (0.52-1.04) mg/dL Glucose (74-99) mg/dL POC Glucose (mg/dL) 167 H 173 H 134 H (75-99) mg/dL Calcium (8.4-10.2) mg/dL 02/17/17 02/17/17 02/17/17 Range/Units 04:47 04:47 05:05 RBC 3.64 L (3.80-5.40) m/uL Neutrophils # 7.9 H (1.3-7.7) k/uL Lymphocytes # 0.4 L (1.0-4.8) k/uL Potassium (3.5-5.1) mmol/L Creatinine 0.41 L (0.52-1.04) mg/dL Glucose 192 H (74-99) mg/dL POC Glucose (mg/dL) 206 H (75-99) mg/dL Calcium 8.0 L (8.4-10.2) mg/dL 02/17/17 02/17/17 02/17/17 Range/Units 05:55 06:56 08:07 RBC (3.80-5.40) m/uL Neutrophils # (1.3-7.7) k/uL Lymphocytes # (1.0-4.8) k/uL Potassium (3.5-5.1) mmol/L Creatinine (0.52-1.04) mg/dL Glucose (74-99) mg/dL POC Glucose (mg/dL) 186 H 168 H 169 H (75-99) mg/dL Calcium (8.4-10.2) mg/dL 02/17/17 02/17/17 02/17/17 Range/Units 08:49 10:08 11:57 RBC (3.80-5.40) m/uL Neutrophils # (1.3-7.7) k/uL Lymphocytes # (1.0-4.8) k/uL Potassium 3.2 L (3.5-5.1) mmol/L Creatinine (0.52-1.04) mg/dL Glucose (74-99) mg/dL POC Glucose (mg/dL) 177 H 178 H (75-99) mg/dL Calcium (8.4-10.2) mg/dL Assessment and Plan Plan: Assessment 1 acute pneumonia bibasilar worse on the left. Rule out acute viral influenza and pneumonia. Rule out superimposed bacterial pneumonia. on 02/15/2017, the patient is being seen in follow-up. I haven't seen much of progress over the past 2448 hrs. however there has been no interval worsening. Chest x-ray still showing stable bilateral lower lobe pulmonary infiltration. The patient is being treated for an influenza pneumonia with Tamiflu 75 mg by mouth twice a day. I also had to cover with empiric antibiotic coverage including coverage for MRSA and for that reason I give the patient a combination of Teflaro and Levaquin. She is on high flow oxygen at 15 L per minute nasal cannula. Pulse oxing barely above 90%. Cough and congestion and other respiratory symptoms improved. She is still quite hypoxic. On 02/16/2017, I'm seeing this patient in follow-up. The patient is doing well. There has been some slight improvement in her oxygenation and she is down to 10 L of oxygen by nasal cannula. She still utilizing BiPAP on and off overnight. Chest x-ray shows stable pulmonary infiltrates in lung bases with some limited improvement if any. I'll keep in ICU for 24 hours. On 02/17/2017, the patient has shown significant improvement clinically. The chest x-ray still lagging behind. There is still bibasilar airspace disease on today's chest x-ray however the patient oxidation is improved considerably to the point where she is down to 3 days per minute nasal cannula. We'll continue same antibiotic coverage for now. Continue using incentive spirometer. 2 acute hypoxic respiratory failure secondary to above. This is improved and the patient is currently down to 3 L/m nasal cannula. 3 CVA/TIA, history of 4 Diabetes mellitus type 1 maintained on insulin pump on outpatient basis. The patient had developed some steroid-induced hyperglycemia and the insulin pump was discontinued and she was initiated on a insulin drip currently at 5 units per hour. 5 hyperlipidemia 6 hypertension 7 ADHD 8 obstructive sleep apnea, not receiving any CPAP therapy at this point. Plan continue same treatment. The chest x-rays lagging behind. The patient is down to 3 L/m nasal cannula. Anticipate further improvement. The patient can be transferred to a medical surgical floor. Continue the insulin drip and ultimately the patient can be switched back to her insulin pump while she is more stabilized. Continue PT OT. We'll follow. Give the patient additional dose of Lasix 20 mg IV push.
[2017-02-17] MEDS: LEVOFLOXACIN 750 MG TAB PO SCH (13:07)
[2017-02-17 14:07] LABS: Glucose,Whole Blood 151 mg/dL (75-99)
[2017-02-17] MEDS ORDERED: INSPUCOR MISCELLANE PRN ×2 (15:57→21:26)
[2017-02-17] MEDS ORDERED: INSULIN LISPRO (humaLOG) 300 UNIT/3 ML VIAL SQ PRN (15:57)
[2017-02-17] MEDS ORDERED: INSULIN PUMP BASAL RATES 1 EACH MISC MISCELLANE PRN (15:57)
[2017-02-17] MEDS ORDERED: INSULIN PUMP MEAL BOLUS 1 UNIT MISC MISCELLANE SCH (17:30)
[2017-02-17 18:11] LABS: Glucose,Whole Blood 128 mg/dL (75-99)
[2017-02-17] MEDS: SODIUM CHLORIDE 0.9% 1,000 ML IV SCH ×3 (18:12→23:20)
[2017-02-17] MEDS: methylPREDNISolone SOD SUCCI 40 MG/ML 1 ML VIAL IV SCH (20:36)
[2017-02-17 20:45] LABS: Glucose,Whole Blood 137 mg/dL (75-99)
[2017-02-18] MEDS: IPRATROPIUM-ALBUTEROL 3 ML NEB INHALATION SCH ×6 (03:37→23:43)
[2017-02-18] MEDS: methylPREDNISolone SOD SUCCI 40 MG/ML 1 ML VIAL IV SCH ×3 (07:11→21:40)
[2017-02-18] MEDS: SODIUM CHLORIDE 0.9% 1,000 ML IV SCH ×2 (07:12→18:19)
--- NOTE | 2017-02-18 07:22 | XR ---
EXAMINATION TYPE: XR chest 1V portable DATE OF EXAM: 02/18/2017 7:17 AM CLINICAL HISTORY: Difficulty breathing and chest pain progress study. TECHNIQUE: Single AP portable upright view of the chest is obtained. COMPARISON: Chest x-ray from one day earlier FINDINGS: There is persistent bibasilar opacity consistent with infiltrate and/or atelectasis. Cardi ac silhouette size is stable and upper limits of normal. Upper lungs remain clear without pneumothora x. Osseous structures are intact. IMPRESSION: Overall stable findings, bibasilar infiltrate and/or atelectasis redemonstrated.
[2017-02-18 07:26] LABS: Glucose,Whole Blood 101 mg/dL (75-99)
[2017-02-18 08:56] LABS: Hemoglobin A1C 8.5 % (4.2-6.1)
[2017-02-18] MEDS: ENOXAPARIN 40 MG/0.4 ML SYRINGE SQ SCH (09:32)
[2017-02-18] MEDS: HYDROcodone/APAP 5-325MG 1 EACH TAB PO PRN ×2 (09:32→21:41)
[2017-02-18] MEDS: PANTOPRAZOLE 40 MG TABLET PO SCH (09:33)
[2017-02-18] MEDS: INSULIN PUMP MEAL BOLUS 1 UNIT MISC MISCELLANE SCH ×4 (09:33→21:40)
[2017-02-18 10:32] LABS: Basophils % (A) 0 %; CH 32.2; CHCM 33.3; Eosinophils % (A) 0 %; HCT 36.2 % (34.0-46.0); HDW 2.39; HGB 11.9 gm/dL (11.4-16.0); Luc # (Auto) 0.05; Luc % (Auto) 1; Lymphocytes # (A) 0.7 k/uL (1.0-4.8); Lymphocytes % (A) 8 %; MCH 31.9 pg (25.0-35.0); MCV 96.8 fL (80.0-100.0); Mean Platelet Volume 6.9; Monocytes # (A) 0.5 k/uL (0-1.0); Monocytes % (A) 5 %; Neutrophils # (A) 8.1 k/uL (1.3-7.7); Neutrophils % (A) 86 %; RBC 3.74 m/uL (3.80-5.40); RDW 12.4 % (11.5-15.5); WBC 9.4 k/uL (3.8-10.6); WBC (Perox) 9.84
[2017-02-18] MEDS: CEFTAROLINE FOSAMIL 600 MG in SODIUM CHLORIDE 0.9% 250 ML IVPB SCH ×2 (10:53→21:39)
[2017-02-18 11:00] LABS: Anion Gap 10 mmol/L; Blood Urea Nitrogen 9 mg/dL (7-17); Calcium 8.3 mg/dL (8.4-10.2); Carbon Dioxide 28 mmol/L (22-30); Chloride 101 mmol/L (98-107); Glucose 115 mg/dL (74-99); Non-African American GFR(MDRD) >60 (>60 ml/min/1.73 sqM); Phosphorous 2.5 mg/dL (2.5-4.5); Potassium 3.4 mmol/L (3.5-5.1); Sodium 139 mmol/L (137-145)
--- NOTE | 2017-02-18 12:00 | PN ---
DATE OF SERVICE: 02/17/2017 This 26-year-old woman was admitted with acute influenza B and as well as bilateral pneumonia with sepsis and acute respiratory failure, is still being monitored in the ICU at this time. The patient did not use BiPAP last night. The patient is slightly more alert but still complaining of generalized . Patient was treated with antivirals, antibiotics and steroids. Dr. Jackson is following the patient closely. Most recent chest x-ray done today, which I reviewed closely showed similar findings and other stable. PAST MEDICAL HISTORY: Reviewed. REVIEW OF SYSTEMS: CARDIOVASCULAR: As mentioned earlier. GI: No nausea. : No dysuria. NERVOUS SYSTEMS: No numbness or weakness. Current medications are reviewed and include Tylenol 650 q.6 p.r.n., [place] 5 mg q.4 p.r.n., DuoNeb q.i.d. and p.r.n., ceftaroline 250 mg b.i.d., Lovenox 40 mg subQ, Mucinex 600 mg b.i.d., Dilaudid 0.5 q.4 p.r.n., Levaquin 750 daily, Ativan 1 mg q.4 p.r.n., Solu-Medrol 40 IV b.i.d., Narcan 0.2 q.2 p.r.n., Zofran 4 mg., Protonix 40 mg daily, Restoril 50 mg q.h.s., p.r.n.. PHYSICAL EXAM: Patient is alert and oriented x3. Pulse is 120. Blood pressure is 115/62, respirations 28, temperature 98.1, pulse ox 96% on 3 L. HEENT: Conjunctivae normal, oral mucosa moist. NECK: No jugular venous distension. No carotid bruit with no lymph node enlargement. CARDIOVASCULAR: S1, S2, muffled. No S3, no S4. RESPIRATORY: Breath sounds diminished at the bases, bilateral scattered rhonchi and expiratory wheezing also present. Abdomen is soft, nontender, no mass palpable. EXTREMITIES: No edema, no swelling. NERVOUS SYSTEM: Moves all 4 limbs. Mild diffuse weakness. LYMPHATICS: No lymph node palpable in neck, axillae or groin. SKIN: No ulcer, rash, bleeding. LABS: CBC, WBC 8.8, hemoglobin is 11.8, sodium 137, potassium 3.2. Glucose 151. ASSESSMENT: 1. Acute influenza B with bilateral pneumonia, left more than the right with possible gram-negative with sepsis, with acute hypoxic respiratory failure, status post BiPAP at night, present on admission. 2. Diabetes mellitus type I, uncontrolled on IV insulin drip. 3. History of insulin pump. 4. Hypoalbuminemia, mild. 5. Anemia, normocytic. 6. Hyponatremia. 7. Hypocalcemia. 8. Increased vomiting with unable to keep anything down because of acute gastritis, present on admission. 9. History of cerebrovascular accident, transient ischemic attack. 10. Hypertension. 11. Hyperlipidemia. 12. History of sleep apnea. 13. History of migraines. 14. History of degenerative joint disease. 15. History of section. 16. History of THC. 17. History of anxiety. 18. Obesity, body mass index of 31.2. 19. FULL CODE. RECOMMENDATION: In this 26-year-old woman who presented with multiple complex medical issues, will monitor the patient closely. Continue with the current medications. Continue with the bronchodilators and continue with antibiotic IV ceftaroline. The patient has finished a course of antivirals, taper the steroids. The overall prognosis is extremely guarded because of multiple complex medical issues. But; however, the patient appears to be making significant improvement compared to the few days earlier, but will continue to monitor and will follow closely with Dr. Jackson. If the patient is transferred to ICU, I recommend stop the insulin drip and initiate insulin pump and continue to follow the protocol as at home. Otherwise, prognosis guarded. Discussed with patient who understands. Further recommendations to follow. MTDD
[2017-02-18 12:27] LABS: Glucose,Whole Blood 77 mg/dL (75-99)
[2017-02-18] MEDS ORDERED: INSULIN PUMP TARGET GLUCOSE 1 EACH MISC MISCELLANE PRN (12:47)
[2017-02-18] MEDS ORDERED: INSULIN PUMP ACTIVE INSULIN 1 EACH MISC MISCELLANE PRN (12:47)
--- NOTE | 2017-02-18 13:32 | P.PN ---
Subjective Principal diagnosis: Acute hypoxic respiratory failure secondary to pneumonia, community-acquired. 26-year-old female patient, obese, with a type 1 diabetes mellitus currently on insulin pump, in addition to a previous history of hypertension hyperlipidemia and obstructive sleep apnea, was admitted to the hospital because of generalized weakness, cough and chest congestion and increased dyspnea, chills and body aches and fever that evolved over the past 48-72 hours. The patient had a son at home was suffering from respiratory checked infection and he was also having an acute febrile illness. However his condition was mild and he recovered. Since then the patient started feeling sick with above-mentioned constitutions symptoms and progressive addition to most dyspnea and cough and congestion to the point where she was becoming very uncomfortable and she came into the hospital. Chest x-ray showed left lower lobe pulmonary infiltrates/ pneumonia. Influenza screen was positive for influenza B. The patient was placed on oxygen and overnight she was placed on high flow oxygen 10 L per minute nasal cannula. She has still on high flow oxygen and her pulse ox is 91- 92%. She did develop some mild epistaxis overnight and her oxygen source is humidified. No change in mental status. No headache. No neck stiffness. No diarrhea. She did have some nausea and limited emesis earlier which recovered. She feels better compared to yesterday however she still has a congested cough and she is still requiring high flow oxygen. Levaquin was also added as an empiric antibiotic coverage. She is a nonsmoker. No travel history. No aspiration. No previous bouts of pneumonias. No other complaints otherwise. The patient is seen again today 02/13/2017 and the intensive care unit. She was quite tachypneic, tachycardic and required increasing amounts of FiO2 to maintain O2 saturations in the low 90s yesterday afternoon on the pediatric floor and she was transferred here for the same. Her chest x-ray revealed worsening pulmonary infiltrates and small bilateral pleural effusions with associated atelectasis. Arterial blood gases revealed a pO2 of 62, pCO2 29 and a pH of 7.43 and 55% FiO2. She did receive Lasix 40 mg IV, Teflaro was added, IV Solu-Medrol was increased and BiPAP support was utilized for approximately 4 hours. She is seen again today in follow-up. She is awake and alert. She is currently on 15 L of high flow nasal cannula to maintain O2 saturations in the 90s. She states she is breathing slightly better today as compared to yesterday. She continues with a productive cough. Today's chest x-ray is stable possible slight improvement. She is less tachycardic and less tachypneic. White count 13.3. She has been afebrile. Hemodynamically stable. On 02/15/2017 the patient is being seen in follow-up. The patient is still in intensive care unit on high flow oxygen 15 L per minute nasal cannula. On and off she still requiring therapy with BiPAP. She has short of breath. Her cough and congestion have improved. Her chest x-ray still showing stable bilateral lower lobe pulmonary infiltration. She has a good appetite. She is tolerating her diet. No nausea. No vomiting to no change in mental status. She is still on a combination of Teflaro and Levaquin. She is on Tamiflu regarding influenza pneumonia. Cultures of been established and only positive findings is positive basis for for influenza. Hemodynamically stable. No hypotension. On 02/16/2017 the patient is being seen in follow-up. She is slightly improved compared to yesterday. Her FiO2 has been cut down to 10 L per minute nasal cannula. Chest x-ray still showing bilateral lower lobe pulmonary infiltrates. On and off she is using the BiPAP overnight at a pressure of 10 over 5 cm of water. She has no other new complaints. No change in mental status. No nausea or vomiting. No diarrhea. No change in mental status. No other significant issues over the past 24 hours. On 02/17/2017 the patient is doing much better. I was able to wean down the FiO2 from 15 L high flow down to 10 L high flow and down to 3 L/m nasal cannula. Her saturation is around 1994%. Her cough has subsided. She is not utilizing the BiPAP anymore. She remains on Tamiflu in addition to a combination of Teflaro and Levaquin. No new complaints otherwise for now. No change in mental status. She is a bit weak and she may benefit from rehabilitation. No nausea. No vomiting. No emesis no swelling. The patient has been diuresed adequately. Patient was reevaluated today on 02/18/2017, doing much better, she is now on 3 L nasal cannula. O2 saturations are in the mid 90s, patient is not utilizing BiPAP anymore, she remains on antibiotics and she is done with her Tamiflu. Patient is on Teflaro and Levaquin. Today I recommended that we discontinue isolation. And we will allow the patient to start ambulating in the hallway with possibly plans to discharge the patient home in the next 24 hours. Objective - Vital Signs Vital signs: Vital Signs Temp 98 F 02/18/17 07:53 Pulse 84 02/18/17 11:31 Resp 19 02/18/17 07:53 BP 137/72 02/18/17 07:53 Pulse Ox 95 02/18/17 07:53 Intake & Output 02/17/17 02/18/17 02/18/17 18:59 06:59 18:59 Intake Total 910 540 Output Total 1994 Balance -1085 540 Weight 79.5 kg Intake: Intake, IV Titration 430 300 Amount Ceftaroline Fosamil 600 250 250 mg In Sodium Chloride 0.9 % 250 ml @ 250 mls/hr IVPB Q12HR [facility] Rx#: [id number] Sodium Chloride 0.9% 1, 180 50 000 ml @ 5 mls/hr IV . Q24H [facility] Rx#:[id number] Oral 480 240 Output: Urine 1994 Other: Voiding Method Toilet Toilet Toilet # Voids 1 1 - Exam Physical Exam: Revealed a 26-year-old in no distress HEENT:[Neck is supple.] [No neck masses.] [No thyromegaly.] [No JVD.] Chest: [Minimal fine crackles at the right base, no crackles otherwise no rhonchi and no wheezes.] Cardiac Exam: [Normal S1 and S2, no S3 gallop, no murmur.] Abdomen: [Soft, nontender, no megaly, no rebound, no guarding, normal bowel sounds.] Extremities: [No clubbing, no edema, no cyanosis.] Neurological Exam: [No focal neurologic deficit.] - Labs CBC & Chem 7: 02/18/17 08:56 02/18/17 08:56 Labs: Abnormal Lab Results - Last 24 Hours (Table) 02/17/17 02/17/17 02/17/17 Range/Units 04:47 14:06 18:09 RBC (3.80-5.40) m/uL Neutrophils # (1.3-7.7) k/uL Lymphocytes # (1.0-4.8) k/uL Potassium (3.5-5.1) mmol/L Creatinine (0.52-1.04) mg/dL Glucose (74-99) mg/dL POC Glucose (mg/dL) 151 H 128 H (75-99) mg/dL Hemoglobin A1c 8.5 H (4.2-6.1) % Calcium (8.4-10.2) mg/dL 02/17/17 02/18/17 02/18/17 Range/Units 20:44 07:23 08:56 RBC (3.80-5.40) m/uL Neutrophils # (1.3-7.7) k/uL Lymphocytes # (1.0-4.8) k/uL Potassium 3.4 L (3.5-5.1) mmol/L Creatinine 0.47 L (0.52-1.04) mg/dL Glucose 115 H (74-99) mg/dL POC Glucose (mg/dL) 137 H 101 H (75-99) mg/dL Hemoglobin A1c (4.2-6.1) % Calcium 8.3 L (8.4-10.2) mg/dL 02/18/17 Range/Units 08:56 RBC 3.74 L (3.80-5.40) m/uL Neutrophils # 8.1 H (1.3-7.7) k/uL Lymphocytes # 0.7 L (1.0-4.8) k/uL Potassium (3.5-5.1) mmol/L Creatinine (0.52-1.04) mg/dL Glucose (74-99) mg/dL POC Glucose (mg/dL) (75-99) mg/dL Hemoglobin A1c (4.2-6.1) % Calcium (8.4-10.2) mg/dL Assessment and Plan Plan: 1 acute pneumonia bibasilar worse on the left. Suspect superimposed pneumonia on recent influenza infection. on 02/15/2017, the patient is being seen in follow-up. I haven't seen much of progress over the past 2448 hrs. however there has been no interval worsening. Chest x-ray still showing stable bilateral lower lobe pulmonary infiltration. The patient is being treated for an influenza pneumonia with Tamiflu 75 mg by mouth twice a day. I also had to cover with empiric antibiotic coverage including coverage for MRSA and for that reason I give the patient a combination of Teflaro and Levaquin. She is on high flow oxygen at 15 L per minute nasal cannula. Pulse oxing barely above 90%. Cough and congestion and other respiratory symptoms improved. She is still quite hypoxic. On 02/16/2017, I'm seeing this patient in follow-up. The patient is doing well. There has been some slight improvement in her oxygenation and she is down to 10 L of oxygen by nasal cannula. She still utilizing BiPAP on and off overnight. Chest x-ray shows stable pulmonary infiltrates in lung bases with some limited improvement if any. I'll keep in ICU for 24 hours. On 02/17/2017, the patient has shown significant improvement clinically. The chest x-ray still lagging behind. There is still bibasilar airspace disease on today's chest x-ray however the patient oxidation is improved considerably to the point where she is down to 3 days per minute nasal cannula. We'll continue same antibiotic coverage for now. Continue using incentive spirometer. On 02/18/2017, continues to improve, FiO2 was titrated down to 3 to his nasal cannula, patient remains in the same antibiotics, I will discontinue isolation, and possibly ambulated the patient in the hallway consider discharging the patient home in the next 24 hours. 2 acute hypoxic respiratory failure secondary to above. This is improved and the patient is currently down to 3 L/m nasal cannula. 3 CVA/TIA, history of 4 Diabetes mellitus type 1 maintained on insulin pump on outpatient basis. The patient had developed some steroid-induced hyperglycemia and the insulin pump was discontinued and she was initiated on a insulin drip currently at 5 units per hour. 5 hyperlipidemia 6 hypertension 7 ADHD 8 obstructive sleep apnea, not receiving any CPAP therapy at this point. Recommendation: Continue present meds, discharge planning in the next 24 hours. Follow-up chest x-ray in a.m. Time with Patient: Less than 30
[2017-02-18] MEDS: LEVOFLOXACIN 750 MG TAB PO SCH (14:01)
[2017-02-18 14:17] LABS: Glucose,Whole Blood 110 mg/dL (75-99)
[2017-02-18 14:55] VITALS: BMI 33.1
[2017-02-18 17:29] LABS: Glucose,Whole Blood 57 mg/dL (75-99)
[2017-02-18 17:29] LABS: Glucose,Whole Blood 66 mg/dL (75-99)
[2017-02-18 17:46] LABS: Glucose,Whole Blood 79 mg/dL (75-99)
[2017-02-18] MEDS: ONDANSETRON 4 MG/2 ML VIAL IVP PRN (18:11)
[2017-02-18 20:50] LABS: Glucose,Whole Blood 129 mg/dL (75-99)
[2017-02-18] MEDS ORDERED: POTASSIUM CHLORIDE ER 20 MEQ TAB.ER PO STA (22:40)
--- NOTE | 2017-02-18 23:00 | P.PN ---
Subjective Date of service 02/18/2017 Progress note being dictated for Dr. Castro. Interval history: This is a 18-year-old female admitted with acute influenza B, bilateral pneumonia and multiple other medical issues. Maintained on IV antibiotics, steroids, nebulized bronchodilators. Tamiflu completed Significant clinical improvement. Maintaining O2 sats of 97% on 3 L nasal cannula. Chest x-ray stable. Did not require BiPAP during the night. Productive cough with yellow green sputum. Diet intake improving. Blood sugars improving, currently in the 120s on patient's own insulin pump. Afebrile , normal WBC. Potassium 3.4. Denies chest pain, palpitations or increasing shortness of breath. Objective - Vital Signs Vital signs: Vital Signs Temp 98 F 02/18/17 15:00 Pulse 96 02/18/17 15:39 Resp 19 02/18/17 15:00 BP 119/73 02/18/17 15:00 Pulse Ox 97 02/18/17 15:00 Intake & Output 02/17/17 02/18/17 02/18/17 18:59 06:59 18:59 Intake Total 910 540 Output Total 1994 Balance -1085 540 Weight 79.5 kg 79.5 kg Intake: Intake, IV Titration 430 300 Amount Ceftaroline Fosamil 600 250 250 mg In Sodium Chloride 0.9 % 250 ml @ 250 mls/hr IVPB Q12HR [facility] Rx#: [id number] Sodium Chloride 0.9% 1, 180 50 000 ml @ 5 mls/hr IV . Q24H [facility] Rx#:[id number] Oral 480 240 Output: Urine 1994 Other: Voiding Method Toilet Toilet Toilet # Voids 1 1 - Exam PHYSICAL EXAM: VITAL SIGNS: As above GENERAL: [Sitting up in bed, no acute distress] HEENT: [Pupils equal conjunctiva normal.] NECK: [Supple, no JVD] RESPIRATORY EFFORT:[Normal] LUNGS: [Bilateral bases diminished, fine rate basilar crackles] CARDIOVASCULAR[regular S1 and S2, no murmurs, rubs or gallops] GI: [Abdomen soft, nontender, positive bowel sounds.] PSYCH: [Alert and oriented -3, mood and affect normal.] NEURO: [No focal deficits, moves all 4 extremities, strength and sensation ] - Labs CBC & Chem 7: 02/18/17 08:56 02/18/17 08:56 Labs: Abnormal Lab Results - Last 24 Hours (Table) 02/17/17 02/17/17 02/18/17 Range/Units 04:47 20:44 07:23 RBC (3.80-5.40) m/uL Neutrophils # (1.3-7.7) k/uL Lymphocytes # (1.0-4.8) k/uL Potassium (3.5-5.1) mmol/L Creatinine (0.52-1.04) mg/dL Glucose (74-99) mg/dL POC Glucose (mg/dL) 137 H 101 H (75-99) mg/dL Hemoglobin A1c 8.5 H (4.2-6.1) % Calcium (8.4-10.2) mg/dL 02/18/17 02/18/17 02/18/17 Range/Units 08:56 08:56 14:15 RBC 3.74 L (3.80-5.40) m/uL Neutrophils # 8.1 H (1.3-7.7) k/uL Lymphocytes # 0.7 L (1.0-4.8) k/uL Potassium 3.4 L (3.5-5.1) mmol/L Creatinine 0.47 L (0.52-1.04) mg/dL Glucose 115 H (74-99) mg/dL POC Glucose (mg/dL) 110 H (75-99) mg/dL Hemoglobin A1c (4.2-6.1) % Calcium 8.3 L (8.4-10.2) mg/dL 02/18/17 02/18/17 Range/Units 17:11 17:27 RBC (3.80-5.40) m/uL Neutrophils # (1.3-7.7) k/uL Lymphocytes # (1.0-4.8) k/uL Potassium (3.5-5.1) mmol/L Creatinine (0.52-1.04) mg/dL Glucose (74-99) mg/dL POC Glucose (mg/dL) 57 L 66 L (75-99) mg/dL Hemoglobin A1c (4.2-6.1) % Calcium (8.4-10.2) mg/dL Assessment and Plan Plan: 1. [Acute influenza and the with bilateral pneumonia, left more than right, possible gram-negative,with sepsis]. 2. [Acute hypoxic respiratory failure, status post BiPAP dependent at night]. 3. [Diabetes mellitus type 1, status post insulin drip, now back on insulin pump ]. 4. [Hypoalbuminemia, mild]. 5. [Hypokalemia]. 6. [Hypocalcemia]. 7. [Acute gastritis, with increased nausea, vomiting, present on admission, improving]. 8 hypertension 9. Hyperlipidemia 10. History of sleep apnea 11. Degenerative joint disease 12. History of THC 13. History of CVA, TIA 14. Obesity, BMI 33.1 15. History of anxiety Plan: Continue on current medication regime , steroids, antibiotics, nebulized bronchodilators, monitoring and symptomatic treatment. Potassium supplements ordered. Droplet precautions discontinued as per pulmonary. Increase ambulation as tolerated. Tapering of steroids in progress, convert to oral prednisone in a.m. Follow closely with pulmonary. Discharge planning in progress for 24-48 hrs. further recommendations to follow. The impression and plan of care has been dictated as directed. : I performed a H&P examination of this patient and discussed the same with the dictator. I agree with the dictator's note. Any additional findings/opinions/ etc. will be noted.
[2017-02-19 00:26] VITALS: RESP 20
[2017-02-19] MEDS: guaiFENesin 600 MG TABLET.ER PO PRN (03:04)
[2017-02-19] MEDS: IPRATROPIUM-ALBUTEROL 3 ML NEB INHALATION SCH ×4 (03:30→16:56)
[2017-02-19] MEDS: INSULIN PUMP MEAL BOLUS 1 UNIT MISC MISCELLANE SCH ×2 (07:30→12:30)
[2017-02-19 07:57] LABS: Glucose,Whole Blood 157 mg/dL (75-99)
[2017-02-19 08:08] VITALS: TEMP 97.6
[2017-02-19] MEDS ORDERED: predniSONE 20 MG TAB PO SCH (09:00)
--- NOTE | 2017-02-19 09:06 | XR ---
EXAMINATION TYPE: XR chest 2V DATE OF EXAM: 02/19/2017 9:00 AM COMPARISON: 02/18/2017 HISTORY: 26 year-old female follow-up pneumonia TECHNIQUE: Frontal and lateral views FINDINGS: The cardiomediastinal silhouette, aorta, and pulmonary vasculature are within normal limits. Redemons trated patchy opacities with improving aeration of the right basal with persistent consolidation basi lar left lower lobe. No significant pleural effusion. IMPRESSION: Persistent bibasilar infiltrates though improved on the right.
[2017-02-19] MEDS: ENOXAPARIN 40 MG/0.4 ML SYRINGE SQ SCH (09:55)
[2017-02-19] MEDS: CEFTAROLINE FOSAMIL 600 MG in SODIUM CHLORIDE 0.9% 250 ML IVPB SCH (09:55)
[2017-02-19] MEDS: PANTOPRAZOLE 40 MG TABLET PO SCH (09:55)
[2017-02-19] MEDS: HYDROcodone/APAP 5-325MG 1 EACH TAB PO PRN ×2 (10:14→16:55)
--- NOTE | 2017-02-19 10:22 | PN ---
DATE OF SERVICE: 02/18/2017 This 26-year-old woman who was admitted with acute influenza B is being closely monitored. At this time. the patient is significantly improved and patient need oxygen at rest. Seen and evaluated the patient along with the nurse practitioner. Please refer to nurse practitioner notes and impression documented for further information. Further recommendations to follow. MTDD
[2017-02-19 11:36] LABS: Glucose,Whole Blood 90 mg/dL (75-99)
[2017-02-19] MEDS: LEVOFLOXACIN 750 MG TAB PO SCH (13:20)
--- NOTE | 2017-02-19 13:51 | P.PN ---
Subjective 26-year-old female patient, obese, with a type 1 diabetes mellitus currently on insulin pump, in addition to a previous history of hypertension hyperlipidemia and obstructive sleep apnea, was admitted to the hospital because of generalized weakness, cough and chest congestion and increased dyspnea, chills and body aches and fever that evolved over the past 48-72 hours. The patient had a son at home was suffering from respiratory checked infection and he was also having an acute febrile illness. However his condition was mild and he recovered. Since then the patient started feeling sick with above-mentioned constitutions symptoms and progressive addition to most dyspnea and cough and congestion to the point where she was becoming very uncomfortable and she came into the hospital. Chest x-ray showed left lower lobe pulmonary infiltrates/ pneumonia. Influenza screen was positive for influenza B. The patient was placed on oxygen and overnight she was placed on high flow oxygen 10 L per minute nasal cannula. She has still on high flow oxygen and her pulse ox is 91- 92%. She did develop some mild epistaxis overnight and her oxygen source is humidified. No change in mental status. No headache. No neck stiffness. No diarrhea. She did have some nausea and limited emesis earlier which recovered. She feels better compared to yesterday however she still has a congested cough and she is still requiring high flow oxygen. Levaquin was also added as an empiric antibiotic coverage. She is a nonsmoker. No travel history. No aspiration. No previous bouts of pneumonias. No other complaints otherwise. The patient is seen again today 02/13/2017 and the intensive care unit. She was quite tachypneic, tachycardic and required increasing amounts of FiO2 to maintain O2 saturations in the low 90s yesterday afternoon on the pediatric floor and she was transferred here for the same. Her chest x-ray revealed worsening pulmonary infiltrates and small bilateral pleural effusions with associated atelectasis. Arterial blood gases revealed a pO2 of 62, pCO2 29 and a pH of 7.43 and 55% FiO2. She did receive Lasix 40 mg IV, Teflaro was added, IV Solu-Medrol was increased and BiPAP support was utilized for approximately 4 hours. She is seen again today in follow-up. She is awake and alert. She is currently on 15 L of high flow nasal cannula to maintain O2 saturations in the 90s. She states she is breathing slightly better today as compared to yesterday. She continues with a productive cough. Today's chest x-ray is stable possible slight improvement. She is less tachycardic and less tachypneic. White count 13.3. She has been afebrile. Hemodynamically stable. She is seen again today in follow-up 02/14/2017 in the intensive care unit. She is awake and alert in no acute distress. She does continue to require high FiO2 at 15 L per high flow nasal cannula to maintain O2 saturations in the low 90s. She declined to wear the BiPAP throughout the night. Her chest x-ray remains stable but with basilar infiltrates. No real improvement just yet. She remains afebrile at 99.0. No leukocytosis. Blood cultures and sputum culture reveals no growth. On 02/15/2017 the patient is being seen in follow-up. The patient is still in intensive care unit on high flow oxygen 15 L per minute nasal cannula. On and off she still requiring therapy with BiPAP. She has short of breath. Her cough and congestion have improved. Her chest x-ray still showing stable bilateral lower lobe pulmonary infiltration. She has a good appetite. She is tolerating her diet. No nausea. No vomiting to no change in mental status. She is still on a combination of Teflaro and Levaquin. She is on Tamiflu regarding influenza pneumonia. Cultures of been established and only positive findings is positive basis for for influenza. Hemodynamically stable. No hypotension. On 02/16/2017 the patient is being seen in follow-up. She is slightly improved compared to yesterday. Her FiO2 has been cut down to 10 L per minute nasal cannula. Chest x-ray still showing bilateral lower lobe pulmonary infiltrates. On and off she is using the BiPAP overnight at a pressure of 10 over 5 cm of water. She has no other new complaints. No change in mental status. No nausea or vomiting. No diarrhea. No change in mental status. No other significant issues over the past 24 hours. On 02/17/2017 the patient is doing much better. I was able to wean down the FiO2 from 15 L high flow down to 10 L high flow and down to 3 L/m nasal cannula. Her saturation is around 1994%. Her cough has subsided. She is not utilizing the BiPAP anymore. She remains on Tamiflu in addition to a combination of Teflaro and Levaquin. No new complaints otherwise for now. No change in mental status. She is a bit weak and she may benefit from rehabilitation. No nausea. No vomiting. No emesis no swelling. The patient has been diuresed adequately. Patient was reevaluated today on 02/18/2017, doing much better, she is now on 3 L nasal cannula. O2 saturations are in the mid 90s, patient is not utilizing BiPAP anymore, she remains on antibiotics and she is done with her Tamiflu. Patient is on Teflaro and Levaquin. Today I recommended that we discontinue isolation. And we will allow the patient to start ambulating in the hallway with possibly plans to discharge the patient home in the next 24 hours. The patient is seen again today 02/19/2017 on the regular medical floor. She is awake and alert in no acute distress. Her oxygen requirements have improved daily. She is currently on 3 L high flow nasal cannula. She does desaturate into the 80s while ambulating in the hallway without her oxygen. She denies any worsening shortness of breath. She continues with a loose productive cough. No chills or night sweats. Objective - Vital Signs Vital signs: Vital Signs Temp 97.6 F 02/19/17 07:00 Pulse 82 02/19/17 11:18 Resp 20 02/19/17 07:00 BP 118/65 02/19/17 07:00 Pulse Ox 94 L 02/19/17 07:17 Intake & Output 02/18/17 02/19/17 02/19/17 18:59 06:59 18:59 Intake Total 100 360 Output Total 2 Balance 98 360 Weight 79.5 kg Intake: Oral 100 360 Output: Urine 2 Other: Voiding Method Toilet Toilet # Voids 2 - Exam Head exam was generally normal. There was no scleral icterus or corneal arcus. Mucous membranes were moist. My normal neck the patient has significant crowding of the posterior oropharynx. No goiter or neck masses. No thrush. Lungs sounds are diminished bilaterally along with bibasilar crackles worse on the left. There is some scattered rhonchi and wheezes in addition.Cardiac exam revealed the PMI to be normally situated and sized. The rhythm was regular and no extrasystoles were noted during several minutes of auscultation. The first and second heart sounds were normal and physiologic splitting of the second heart sound was noted. There were no murmurs, rubs, clicks, or gallops.Abdominal exam revealed normal bowel sounds. The abdomen was soft, non- tender, and without masses, organomegaly, or appreciable enlargement of the abdominal aorta.Examination of the extremities revealed easily palpable radial, femoral and pedal pulses. There was no cyanosis, clubbing or edema. - Labs CBC & Chem 7: 02/18/17 08:56 02/18/17 08:56 Labs: Abnormal Lab Results - Last 24 Hours (Table) 02/18/17 02/18/17 02/18/17 Range/Units 14:15 17:11 17:27 POC Glucose (mg/dL) 110 H 57 L 66 L (75-99) mg/dL 02/18/17 02/19/17 Range/Units 20:44 07:47 POC Glucose (mg/dL) 129 H 157 H (75-99) mg/dL Assessment and Plan Plan: Assessment 1 acute pneumonia bibasilar worse on the left. Rule out acute viral influenza and pneumonia. Rule out superimposed bacterial pneumonia. 2 acute hypoxic respiratory failure secondary to above. 3 CVA/TIA, history of 4 Diabetes mellitus type 1 maintained on insulin pump on outpatient basis. The patient had developed some steroid-induced hyperglycemia and the insulin pump was discontinued and she was initiated on a insulin drip currently at 5 units per hour. 5 hyperlipidemia 6 hypertension 7 ADHD 8 obstructive sleep apnea, not receiving any CPAP therapy at this point. Plan: The patient was seen and evaluated by Dr. Castaneda. She is cleared for discharge from the pulmonary standpoint. Her chest x-ray was reviewed and does show continued persistent bibasilar infiltrates though somewhat improved on the right. She will complete a course of Levaquin and a prednisone taper. She'll most likely require oxygen for at home for another few weeks. She could be seen in our office in 1 week's time we'll repeat her chest x-ray then.
[2017-02-19 15:23] VITALS: BP 115/69
[2017-02-19] MEDS: SODIUM CHLORIDE 0.9% 1,000 ML IV SCH (16:54)
[2017-02-19 18:21] VITALS: PULSE 106
--- NOTE | 2017-02-20 14:53 | DS ---
DATE OF ADMISSION: 02/11/2017 DATE OF DISCHARGE: 02/19/2017 FINAL DIAGNOSES: 1. Acute influenza with bilateral pneumonia, left more than right, possibly gram-negative with sepsis. 2. Acute hypoxic respiratory status post BIPAP . 3. Diabetes Type I, status post insulin drip. Now back to insulin pump. 4. Hypoalbuminemia, mild. 5. Hypokalemia. 6. Hypocalcemia. 7. Acute gastritis, nausea and vomiting, present on admission. Secondary to viral disease. 8. Hypertension. 9. Hyperlipidemia. 10. History of obstructive sleep apnea. 11. History of degenerative joint disease. 12. History of THC. 13. History of cerebrovascular accident, transient ischemic attack. 14. Obesity with body mass index 35.1. 15. History of anxiety. 16. FULL CODE. DISCHARGE DISPOSITION: The patient will be discharged in a stable condition with guarded prognosis. Total time taken 35 minutes. HISTORY OF PRESENT ILLNESS: This 26-year-old woman with a past medical history of multiple medical problems as mentioned earlier being followed by Dr. Julian in the outpatient setting admitted with acute influenza as well as multiple other complex medical issues as mentioned earlier. The patient also had features of acute respiratory failure. The patient was treated in conjunction with Dr. Jackson and Dr. Castaneda. The patient improved significantly. On exam, vital signs stable. Abdomen soft. Respiratory: A few scattered rhonchi. Nervous system: No focal deficits. DISCHARGE MEDICATIONS AND ADVICE: 1. Diet is cardiac. 2. Activity limited until follow-up. 3. Follow-up with Dr. Julian. 4. Follow-up with Dr. Castaneda as advised. 5. Medications are: Tylenol 500 mg q.4 p.r.n. 6. Insulin pump. 7. Albuterol Atrovent updrafts q.i.d. and p.r.n. 8. Levaquin 750 p.o. daily. 9. Prednisone taper 40 mg daily for 3 days, 30 for 3 days, 20 for 3 days, 10 for 3 days. Once again, the patient will be discharged in a stable condition with guarded prognosis. See orders for details. MTDD
== END 2017-02-19 17:27 | disposition home health service (06) | DRG 871 ==
LOC: EC 09:45 → 6PED 13:20 → 6ICU 02-12 16:17 → 4MS4W 02-17 22:37
PROVIDERS: ADMIT Hospitalist; ATTEND Hospitalist
DX: A41.50 Gram-negative sepsis, unspecified (principal); J96.01 Acute respiratory failure with hypoxia; J10.00 Influenza due to other identified influenza virus with unspecified type of pneumonia; I10 Essential (primary) hypertension; D50.9 Iron deficiency anemia, unspecified; F12.90 Cannabis use, unspecified, uncomplicated; E87.1 Hypo-osmolality and hyponatremia; J98.11 Atelectasis; E83.51 Hypocalcemia; J98.01 Acute bronchospasm; E87.6 Hypokalemia; R00.0 Tachycardia, unspecified; R04.0 Epistaxis; D53.9 Nutritional anemia, unspecified; E10.65 Type 1 diabetes mellitus with hyperglycemia; E88.09 Other disorders of plasma-protein metabolism, not elsewhere classified; T38.0X5A Adverse effect of glucocorticoids and synthetic analogues, initial encounter; K29.00 Acute gastritis without bleeding; E78.5 Hyperlipidemia, unspecified; E66.9 Obesity, unspecified; R11.2 Nausea with vomiting, unspecified; R53.1 Weakness; G47.33 Obstructive sleep apnea (adult) (pediatric); M19.90 Unspecified osteoarthritis, unspecified site; F90.9 Attention-deficit hyperactivity disorder, unspecified type; F41.9 Anxiety disorder, unspecified; Z96.41 Presence of insulin pump (external) (internal); Z79.4 Long term (current) use of insulin; Z86.73 Personal history of transient ischemic attack (TIA), and cerebral infarction without residual deficits; Z68.35 Body mass index [BMI] 35.0-35.9, adult; Z83.3 Family history of diabetes mellitus; Z71.3 Dietary counseling and surveillance; Z79.899 Other long term (current) drug therapy; Z87.19 Personal history of other diseases of the digestive system; Z87.42 Personal history of other diseases of the female genital tract; Z86.69 Personal history of other diseases of the nervous system and sense organs
CPT/HCPCS: 36415; 36600; 71010; 71020; 80048; 80053; 81003; 82009; 82805; 83036; 83605; 83735; 84100; 84132; 84703; 85025; 87040; 87070; 87205; 93005; 94640; 94660; 94760; 96361; 96365; 96374; 96375; 99285

== ENCOUNTER 2017-03-09 12:33 | Emergency (ER) | payer OTHER ==
[2017-03-09] MEDS ORDERED: METOCLOPRAMIDE 5 MG/ML 2 ML VIAL IVP STA (13:34)
[2017-03-09] MEDS ORDERED: SODIUM CHLORIDE 0.9% 1,000 ML IV STA (13:34)
--- NOTE | 2017-03-09 13:42 | ED ---
General Adult HPI - General Chief complaint: Nausea/Vomiting/Diarrhea Stated complaint: Unable to Eat Time Seen by Provider: 03/09/17 13:25 Source: patient, RN notes reviewed Mode of arrival: ambulatory Limitations: no limitations - History of Present Illness Initial comments: 26-year-old female presents to the emergency department with a chief complaint of nausea. The patient has had nausea for the past week or so. The nausea started soon after she started the new prescription of atenolol for tachycardia. Patient states any time she tries to eat she vomits. Patient states the type I diabetic so this is concerning to her because she is unable to care for herself if she cannot eat if she gets low blood sugar. Patient states that she believes is most likely due to the new medication. Patient states she has not had any abdominal pain with this. Patient denies any fevers or chills. Patient denies any recent fever, chills, shortness of breath, chest pain, back pain, abdominal pain, numbness or tingling, dysuria or hematuria, constipation or diarrhea, headaches or visual changes, or any other current symptoms. - Related Data Home Medications Medication Instructions Recorded Confirmed Insulin Aspart (For Pump) [NovoLOG 0.01 unit SQ-PUMP CONTINUOUS 02/10/17 (For Pump)] guaiFENesin [Mucinex] 600 mg PO BID PRN 02/10/17 03/09/17 Acetaminophen [Tylenol] 500 mg PO Q4-6H PRN 02/11/17 03/09/17 Atenolol [Tenormin] 25 mg PO DAILY 03/09/17 03/09/17 Previous Rx's Medication Instructions Recorded Ondansetron Odt [Zofran ODT] 4 mg PO Q8HR PRN #20 tab 03/09/17 Allergies Allergy/AdvReac Type Severity Reaction Status Date / Time cucumber Allergy Rash/Hives Verified 03/09/17 13:26 prednisone Allergy Rash/Hives Verified 03/09/17 13:26 Review of Systems ROS Statement: Those systems with pertinent positive or pertinent negative responses have been documented in the HPI. ROS Other: All systems not noted in ROS Statement are negative. Past Medical History Past Medical History: CVA/TIA, Diabetes Mellitus, Hyperlipidemia, Hypertension, Sleep Apnea/CPAP/BIPAP Additional Past Medical History / Comment(s): IDDM type I-on insulin pump, DKA, divertulitis, ovarian cysts, migraines, TIAs in 2009-none since, BLADIMIR with no CPAP use, heart murmur, back pain, UTI, past L ankle fx and L foot little toe fx. History of Any Multi-Drug Resistant Organisms: None Reported Past Surgical History: Section Additional Past Surgical History / Comment(s): Er[place] teeth extractions. Past Anesthesia/Blood Transfusion Reactions: No Reported Reaction, Motion Sickness Past Psychological History: ADD/ADHD, Anxiety Additional Psychological History / Comment(s): Pt lives with her 8 yr old son. She is independent. Smoking Status: Never smoker Past Alcohol Use History: Occasional Additional Past Alcohol Use History / Comment(s): 1 glass of wine a week. Past Drug Use History: None Reported - Past Family History Father Family Medical History: Diabetes Mellitus Additional Family Medical History / Comment(s): Father of diabetic complications. Mother Family Medical History: No Reported History General Exam - General Exam Comments Initial Comments: General: The patient is awake and alert, in no distress, and does not appear acutely ill. Eye: Pupils are equal, round and reactive to light, extra-ocular movements are intact; there is normal conjunctiva bilaterally. No signs of icterus. Ears, nose, mouth and throat: There are moist mucous membranes. Neck: The neck is supple, there is no tenderness. Cardiovascular: There is a regular rate and rhythm. No murmur, rub or gallop is appreciated. Respiratory: Lungs are clear to auscultation, respirations are non-labored, breath sounds are equal. No wheezes, stridor, rales, or rhonchi. Gastrointestinal: Soft, non-distended, non-tender abdomen without masses or organomegaly noted. There is no rebound or guarding present. No CVA tenderness. Bowel sounds are unremarkable. Back: There is no tenderness to palpation in the midline. There is no obvious deformity. No rashes noted. Musculoskeletal: Normal ROM, no tenderness, There is no pedal edema. There is no calf tenderness or swelling. Sensation intact. Pulses equal bilaterally 2+. Neurological: CN II-XII intact, There are no obvious motor or sensory deficits. Coordination appears grossly intact. Speech is normal. Skin: Skin is warm and dry and no rashes or lesions are noted. Psychiatric: Cooperative, appropriate mood & affect, normal judgment. Limitations: no limitations Course Vital Signs 03/09/17 13:11 Temperature 98.5 F Pulse Rate 100 Respiratory 20 Rate Blood Pressure 117/79 O2 Sat by Pulse 99 Oximetry Medical Decision Making - Medical Decision Making 18-year-old female presents to emergency room chief complaint of nausea. At this time patient's lab work and imaging was reviewed that is not showing any acute processes. This time we did discuss other etiologies and that this could turn into something and to return the emergency department. We did discuss the atenolol appendicitis affect GI upset however there is a viral gastrointestinal illness going around right now as well. We did discuss that we will sensation Markoan. Discussed follow-up Dr. Jackson.Patient reexamined at this time shows no signs of acute distress. Patient states that symptoms have improved here in the emergency room with medications given. Results have been discussed with the patient. That she understood and is in agreement with plan. All questions have been answered. She will be discharged. - Lab Data Result diagrams: 03/09/17 14:00 03/09/17 14:00 Lab Results 03/09/17 03/09/17 03/09/17 Range/Units 14:00 14:00 14:00 WBC 9.3 (3.8-10.6) k/uL RBC 4.30 (3.80-5.40) m/uL Hgb 14.0 (11.4-16.0) gm/dL Hct 42.3 (34.0-46.0) % MCV 98.6 (80.0-100.0) fL MCH 32.7 (25.0-35.0) pg MCHC 33.1 (31.0-37.0) g/dL RDW 13.1 (11.5-15.5) % Plt Count 440 (150-450) k/uL Neutrophils % 62 % Lymphocytes % 29 % Monocytes % 7 % Eosinophils % 1 % Basophils % 1 % Neutrophils # 5.8 (1.3-7.7) k/uL Lymphocytes # 2.7 (1.0-4.8) k/uL Monocytes # 0.6 (0-1.0) k/uL Eosinophils # 0.1 (0-0.7) k/uL Basophils # 0.1 (0-0.2) k/uL Sodium 138 (137-145) mmol/L Potassium 4.7 (3.5-5.1) mmol/L Chloride 99 (98-107) mmol/L Carbon Dioxide 29 (22-30) mmol/L Anion Gap 10 mmol/L BUN 5 L (7-17) mg/dL Creatinine 0.55 (0.52-1.04) mg/dL Est GFR (MDRD) Af Amer >60 (>60 ml/min/1.73 sqM) Est GFR (MDRD) Non-Af >60 (>60 ml/min/1.73 sqM) Glucose 210 H (74-99) mg/dL Calcium 9.6 (8.4-10.2) mg/dL Total Bilirubin 0.6 (0.2-1.3) mg/dL AST 21 (14-36) U/L ALT 32 (9-52) U/L Alkaline Phosphatase 83 (38-126) U/L Total Protein 7.4 (6.3-8.2) g/dL Albumin 4.0 (3.5-5.0) g/dL Urine Color Yellow Urine Appearance Cloudy H (Clear) Urine pH 6.0 (5.0-8.0) Ur Specific [place] 1.009 (1.001-1.035) Urine Protein Negative (Negative) Urine Glucose (UA) 4+ H (Negative) Urine Ketones Negative (Negative) Urine Blood Small H (Negative) Urine Nitrite Negative (Negative) Urine Bilirubin Negative (Negative) Urine Urobilinogen 2.0 (<2.0) mg/dL Ur Leukocyte Esterase Negative (Negative) Urine RBC 3 (0-5) /hpf Urine WBC 4 (0-5) /hpf Ur Squamous Epith Cells 12 H (0-4) /hpf Urine Bacteria Many H (None) /hpf Urine Mucus Rare H (None) /hpf Urine HCG, Qual (Not Detectd) 03/09/17 Range/Units 14:00 WBC (3.8-10.6) k/uL RBC (3.80-5.40) m/uL Hgb (11.4-16.0) gm/dL Hct (34.0-46.0) % MCV (80.0-100.0) fL MCH (25.0-35.0) pg MCHC (31.0-37.0) g/dL RDW (11.5-15.5) % Plt Count (150-450) k/uL Neutrophils % % Lymphocytes % % Monocytes % % Eosinophils % % Basophils % % Neutrophils # (1.3-7.7) k/uL Lymphocytes # (1.0-4.8) k/uL Monocytes # (0-1.0) k/uL Eosinophils # (0-0.7) k/uL Basophils # (0-0.2) k/uL Sodium (137-145) mmol/L Potassium (3.5-5.1) mmol/L Chloride (98-107) mmol/L Carbon Dioxide (22-30) mmol/L Anion Gap mmol/L BUN (7-17) mg/dL Creatinine (0.52-1.04) mg/dL Est GFR (MDRD) Af Amer (>60 ml/min/1.73 sqM) Est GFR (MDRD) Non-Af (>60 ml/min/1.73 sqM) Glucose (74-99) mg/dL Calcium (8.4-10.2) mg/dL Total Bilirubin (0.2-1.3) mg/dL AST (14-36) U/L ALT (9-52) U/L Alkaline Phosphatase (38-126) U/L Total Protein (6.3-8.2) g/dL Albumin (3.5-5.0) g/dL Urine Color Urine Appearance (Clear) Urine pH (5.0-8.0) Ur Specific [place] (1.001-1.035) Urine Protein (Negative) Urine Glucose (UA) (Negative) Urine Ketones (Negative) Urine Blood (Negative) Urine Nitrite (Negative) Urine Bilirubin (Negative) Urine Urobilinogen (<2.0) mg/dL Ur Leukocyte Esterase (Negative) Urine RBC (0-5) /hpf Urine WBC (0-5) /hpf Ur Squamous Epith Cells (0-4) /hpf Urine Bacteria (None) /hpf Urine Mucus (None) /hpf Urine HCG, Qual Not Detected (Not Detectd) - Radiology Data Radiology results: report reviewed, image reviewed Disposition Clinical Impression: Nausea Disposition: HOME SELF-CARE Condition: Stable Instructions: Acute Nausea and Vomiting (ED) Additional Instructions: Please use medication as discussed. Please follow up with family doctor if symptoms have not improved over the next two days. Please return to the emergency room if your symptoms increase or worsen or for any other concerns. Prescriptions: Ondansetron Odt [Zofran ODT] 4 mg PO Q8HR PRN #20 tab PRN Reason: Nausea Referrals: Jevon Julian MD [Primary Care Provider] - 1-2 days Time of Disposition: 14:55
[2017-03-09 14:22] LABS: Basophils # (A) 0.1 k/uL (0-0.2); Basophils % (A) 1 %; CH 32.1; CHCM 32.7; Eosinophils # (A) 0.1 k/uL (0-0.7); Eosinophils % (A) 1 %; HCT 42.3 % (34.0-46.0); HDW 2.16; Luc # (Auto) 0.16; Luc % (Auto) 2; Lymphocytes # (A) 2.7 k/uL (1.0-4.8); Lymphocytes % (A) 29 %; MCH 32.7 pg (25.0-35.0); MCHC 33.1 g/dL (31.0-37.0); MCV 98.6 fL (80.0-100.0); Mean Platelet Volume 6.5; Monocytes # (A) 0.6 k/uL (0-1.0); Monocytes % (A) 7 %; Neutrophils # (A) 5.8 k/uL (1.3-7.7); Neutrophils % (A) 62 %; RDW 13.1 % (11.5-15.5); WBC 9.3 k/uL (3.8-10.6); WBC (Perox) 9.33
[2017-03-09 14:30] LABS: Appearance,Urine Cloudy (Clear); Bacteria,Urine Many /hpf; Bilirubin,Urine Negative (Negative); Glucose,Urine (UA) 4+ (Negative); Ketones,Urine Negative (Negative); Leukocyte Esterase,Urine Negative (Negative); Mucus,Urine Rare /hpf; Nitrite,Urine Negative (Negative); Particle Count 2674; Protein,Urine Negative (Negative); RBC,Urine 3 /hpf (0-5); Specific Gravity,Urine 1.009 (1.001-1.035); Squamous Epithelial Cell,Urine 12 /hpf (0-4); UA Billing (MACRO vs. MICRO) MICRO; WBC,Urine 4 /hpf (0-5)
[2017-03-09 14:32] LABS: ALT 32 U/L (9-52); AST 21 U/L (14-36); Alkaline Phosphatase 83 U/L (38-126); Anion Gap 10 mmol/L; Blood Urea Nitrogen 5 mg/dL (7-17); Calcium 9.6 mg/dL (8.4-10.2); Carbon Dioxide 29 mmol/L (22-30); Chloride 99 mmol/L (98-107); Glucose 210 mg/dL (74-99); Non-African American GFR(MDRD) >60 (>60 ml/min/1.73 sqM); Potassium 4.7 mmol/L (3.5-5.1); Sodium 138 mmol/L (137-145); Total Bilirubin 0.6 mg/dL (0.2-1.3); Total Protein 7.4 g/dL (6.3-8.2)
--- NOTE | 2017-03-09 14:45 | XR ---
EXAMINATION TYPE: XR abdomen 2V DATE OF EXAM: 03/09/2017 2:40 PM CLINICAL DATA: 26-year-old female with abdominal pain COMPARISON: 05/26/2013 FINDINGS: Lung bases are clear. No evidence for free intraperitoneal air. No dilated small bowel or air-fluid levels. Scattered air and stool seen throughout the colon extendi ng distally into the rectum. Mild overall stool burden. No suspicious calcifications identified. IMPRESSION: Mild stool burden. No evidence of bowel obstruction or free intraperitoneal air.
[2017-03-09] MEDS ORDERED: ONDANSETRON 4 MG/2 ML VIAL IVP STA (14:53)
[2017-03-09 15:35] VITALS: BP 118/68; PULSE 80; RESP 16; TEMP 98.6
== END 2017-03-09 15:30 | disposition home or self-care (01) ==
LOC: EC 12:33
DX: R11.0 Nausea (principal); E10.10 Type 1 diabetes mellitus with ketoacidosis without coma; I10 Essential (primary) hypertension; Z96.41 Presence of insulin pump (external) (internal); Z79.4 Long term (current) use of insulin; Z79.899 Other long term (current) drug therapy; Z88.8 Allergy status to other drugs, medicaments and biological substances; Z91.018 Allergy to other foods; Z83.3 Family history of diabetes mellitus
CPT/HCPCS: 99284; 96374; 96375; 96361; 36415; 80053; 85025; 81001; 81025; 74020; J2765; J2405

== ENCOUNTER → 2017-03-20 | Outpatient (CLI) | payer OTHER ==
--- NOTE | 2017-03-27 10:35 | ECHOF ---
Referral Reason:R00.0 Tachycardia MEASUREMENTS -------- HEIGHT: 160.0 cm WEIGHT: 71.7 kg BP: 130/79 RVIDd: 3.0 cm (< 3.3) IVSd: 1.0 cm (0.6 - 1.1) LVIDd: 3.8 cm (3.9 - 5.3) LVPWd: 0.9 cm (0.6 - 1.1) IVSs: 1.4 cm LVIDs: 2.8 cm LVPWs: 1.4 cm LA Diam: 2.8 cm (2.7 - 3.8) LAESV Index (A-L): 16.75 ml/m Ao Diam: 2.6 cm (2.0 - 3.7) AV Cusp: 2.0 cm (1.5 - 2.6) MV EXCURSION: 17.961 mm (> 18.000) MV EF SLOPE: 91 mm/s (70 - 150) EPSS: 0.7 cm MV E Terry: 0.80 m/s MV DecT: 167 ms MV A Terry: 0.74 m/s MV E/A Ratio: 1.08 RAP: 5.00 mmHg RVSP: 23.14 mmHg FINDINGS -------- Resting tachycardia (HR>100bpm). This was a technically good study. The left ventricular size is normal. Left ventricular wall thickness is normal. Overall left ventricular systolic function is normal with, an EF between 60 - 65 %. The right ventricle is normal in size and function. Normal LA size by volume 22+/-6 ml/m2. The right atrium is normal in size. The aortic valve is trileaflet and appears structurally normal. The mitral valve is normal. Mild tricuspid regurgitation present. Right ventricular systolic pressure is normal at < 35 mmHg. The pulmonic valve is normal. The aortic root size is normal. Normal inferior vena cava with normal inspiratory collapse consistent with estimated right atrial pressure of 5 mmHg. The pericardium is normal. CONCLUSIONS -------- 1. Resting tachycardia (HR>100bpm). 2. The mitral valve is normal. 3. Mild tricuspid regurgitation present. 4. Right ventricular systolic pressure is normal at < 35 mmHg. 5. The pulmonic valve is normal. 6. The aortic root size is normal. 7. Normal inferior vena cava with normal inspiratory collapse consistent with estimated right atrial pressure of 5 mmHg. 8. The pericardium is normal. 9. This was a technically good study. 10. The left ventricular size is normal. 11. Left ventricular wall thickness is normal. 12. Overall left ventricular systolic function is normal with, an EF between 60 - 65 %. 13. The right ventricle is normal in size and function. 14. Normal LA size by volume 22+/-6 ml/m2. 15. The right atrium is normal in size. 16. The aortic valve is trileaflet and appears structurally normal. CAR PORTER: Simon San RDCS
== END ==
LOC: RADECHMAIN 11:21
PROVIDERS: ATTEND Internal Medicine Critical Care Medicine
DX: R00.0 Tachycardia, unspecified (principal); I07.1 Rheumatic tricuspid insufficiency
CPT/HCPCS: 93306

== ENCOUNTER → 2017-03-22 | Outpatient (CLI) | payer OTHER ==
--- NOTE | 2017-03-22 16:02 | US ---
EXAMINATION TYPE: US pelvic complete DATE OF EXAM: 03/22/2017 3:41 PM COMPARISON: NONE CLINICAL HISTORY: 26-year-old female R10.2 FEMALE GENITAL SYMPTOMS. Left lower quadrant pain. TECHNIQUE: Multiple transabdominal sonographic images of the pelvis are obtained. Date of LMP: 01/30/2017 FINDINGS: Uterus: Anteverted measuring 8.5 x 3.8 x 5.5 cm Endometrial Stripe: 0.7 cm, within normal limits. Right Ovary: 3.0 x 1.7 x 2.6 cm for a volume of 7.0 mL. Left Ovary: 3.0 x 1.5 x 2.8 cm for a volume of 6.6 mL. No evident adnexal abnormality or cul-de-sac free fluid. JUNIOR RECRUITER NOTES: Please note, bladder also imaged and appeared wnl, only right jet visualized, No a bnormality visualized to account for patient's symptoms IMPRESSION: 1. Unremarkable transabdominal sonographic examination of the pelvis. 2. The major league baseball umpire also imaged the bladder which appears unremarkable. However, only the right ureter al jet was seen during the course of the exam.
--- NOTE | 2017-03-22 16:08 | US ---
EXAMINATION TYPE: US abdomen complete DATE OF EXAM: 03/22/2017 3:34 PM COMPARISON: NONE CLINICAL HISTORY: 26 year-old female R31.9 Hematuria, R10.9 flank pain,R10.2 female genital symptoms. Flank pain with microscopic hematuria TECHNIQUE: Multiple sonographic images of the abdomen were obtained. FINDINGS: Liver Length: 16.5 cm Gallbladder Wall: 0.2 cm CBD: 0.3 cm Spleen: 9.8 cm Right Kidney: 10.6 x 4.6 x 5.4 cm Left Kidney: 10.1 x 5.8 x 5.3 cm Pancreas: Grossly unremarkable. Liver: Homogeneous echotexture without focal lesion. Gallbladder: No abnormal gallbladder distention, wall thickening, pericholecystic fluid, or shadowin g calculi. CBD: Within normal limits Spleen: Within normal limits Right Kidney: No hydronephrosis Left Kidney: No hydronephrosis Upper IVC: Within normal limits Abd Aorta: No abnormal dilatation. IMPRESSION: Unremarkable sonographic examination of the abdomen.
== END | disposition home or self-care (01) ==
LOC: RADUSWWP 15:06
PROVIDERS: ATTEND Internal Medicine
DX: R10.2 Pelvic and perineal pain (principal); R31.9 Hematuria, unspecified; R10.9 Unspecified abdominal pain
CPT/HCPCS: 76700; 76856

== ENCOUNTER 2017-04-09 20:43 | Emergency (ER) | payer OTHER ==
[2017-04-09 20:51] VITALS: RESP 18
[2017-04-09] MEDS ORDERED: SODIUM CHLORIDE 0.9% 1,000 ML IV ONE (21:03)
[2017-04-09] MEDS ORDERED: ONDANSETRON 4 MG/2 ML VIAL IVP STA (21:25)
[2017-04-09] MEDS ORDERED: HYDROmorphone 1 MG/ML 1 ML SYRINGE IVP STA (21:26)
[2017-04-09 21:27] LABS: Appearance,Urine Cloudy (Clear); Bacteria,Urine Few /hpf; Bilirubin,Urine Negative (Negative); Glucose,Urine (UA) 1+ (Negative); Ketones,Urine Negative (Negative); Leukocyte Esterase,Urine Large (Negative); Nitrite,Urine Negative (Negative); Particle Count 22853; Protein,Urine 1+ (Negative); RBC,Urine 9 /hpf (0-5); Specific Gravity,Urine 1.007 (1.001-1.035); Squamous Epithelial Cell,Urine 1 /hpf (0-4); UA Billing (MACRO vs. MICRO) MICRO; Urobilinogen,Urine <2.0 mg/dL (<2.0); WBC,Urine >182 /hpf (0-5)
[2017-04-09 21:40] LABS: Basophils # (A) 0.1 k/uL (0-0.2); Basophils % (A) 1 %; CH 32.8; CHCM 34.3; Eosinophils # (A) 0.1 k/uL (0-0.7); Eosinophils % (A) 1 %; HCT 40.1 % (34.0-46.0); HDW 2.47; HGB 13.3 gm/dL (11.4-16.0); Luc # (Auto) 0.14; Luc % (Auto) 1; Lymphocytes # (A) 2.3 k/uL (1.0-4.8); Lymphocytes % (A) 18 %; MCH 31.9 pg (25.0-35.0); MCHC 33.2 g/dL (31.0-37.0); MCV 96.2 fL (80.0-100.0); Mean Platelet Volume 6.4; Monocytes # (A) 0.5 k/uL (0-1.0); Monocytes % (A) 4 %; Neutrophils # (A) 9.9 k/uL (1.3-7.7); Neutrophils % (A) 76 %; RBC 4.17 m/uL (3.80-5.40); RDW 13.3 % (11.5-15.5); WBC 12.9 k/uL (3.8-10.6); WBC (Perox) 13.13
--- NOTE | 2017-04-09 21:46 | ED ---
Abdominal Pain HPI - General Chief Complaint: Abdominal Pain Stated Complaint: rt side pain Time Seen by Provider: 04/09/17 20:59 Source: patient, RN notes reviewed Mode of arrival: ambulatory Limitations: no limitations - History of Present Illness Initial Comments: Patient is a 26-year-old female presents to the emergency room for evaluation of right-sided abdominal pain. Patient states pain began around 4:30 this afternoon. Patient states her Tylenol with no relief of symptoms. Patient states the pain is beginning to make her feel nauseous. Patient states the pain radiates from the right side of her abdomen to her right lower quadrant. Patient denies history of kidney stones. Patient denies history of abdominal surgeries section 8 years ago. Patient states she has been developing some mild pain and burning during urination. Patient states she feels like she is developing a urinary tract infection. Patient denies fevers or chills. Patient denies headache or dizziness. Patient denies chest pain or shortness of breath. Patient denies history of STDs. - Related Data Home Medications Medication Instructions Recorded Confirmed Insulin Aspart (For Pump) [NovoLOG 0.01 unit SQ-PUMP CONTINUOUS 02/10/17 (For Pump)] Acetaminophen [Tylenol] 500 mg PO Q4-6H PRN 02/11/17 04/09/17 Diltiazem HCl 60 mg PO BID 04/09/17 04/09/17 Previous Rx's Medication Instructions Recorded Ciprofloxacin HCl [Cipro] 500 mg PO Q12HR 10 Days 04/09/17 Allergies Allergy/AdvReac Type Severity Reaction Status Date / Time cucumber Allergy Rash/Hives Verified 04/09/17 21:07 prednisone Allergy Rash/Hives Verified 04/09/17 21:07 Review of Systems ROS Statement: Those systems with pertinent positive or pertinent negative responses have been documented in the HPI. ROS Other: All systems not noted in ROS Statement are negative. Past Medical History Past Medical History: CVA/TIA, Diabetes Mellitus, Hyperlipidemia, Hypertension, Sleep Apnea/CPAP/BIPAP Additional Past Medical History / Comment(s): IDDM type I-on insulin pump, DKA, divertulitis, ovarian cysts, migraines, TIAs in 2008-none since, BLADIMIR with no CPAP use, heart murmur, back pain, UTI, past L ankle fx and L foot little toe fx. History of Any Multi-Drug Resistant Organisms: None Reported Past Surgical History: Section Additional Past Surgical History / Comment(s): [place] teeth extractions. Past Anesthesia/Blood Transfusion Reactions: No Reported Reaction, Motion Sickness Past Psychological History: ADD/ADHD, Anxiety Additional Psychological History / Comment(s): Pt lives with her 8 yr old son. She is independent. Smoking Status: Never smoker Past Alcohol Use History: None Reported Additional Past Alcohol Use History / Comment(s): 1 glass of wine a week. Past Drug Use History: None Reported - Past Family History Father Family Medical History: Diabetes Mellitus Additional Family Medical History / Comment(s): Father of diabetic complications. Mother Family Medical History: No Reported History General Exam - General Exam Comments Initial Comments: Sitting in exam room, no acute distress. Limitations: no limitations General appearance: alert, in no apparent distress Head exam: Present: atraumatic, normocephalic, normal inspection Eye exam: Present: normal appearance ENT exam: Present: normal exam Neck exam: Present: normal inspection Respiratory exam: Present: normal lung sounds bilaterally. Absent: respiratory distress Cardiovascular Exam: Present: regular rate, normal rhythm, normal heart sounds GI/Abdominal exam: Present: soft, tenderness (RUQ, RLQ), normal bowel sounds. Absent: distended, guarding, rebound, rigid Extremities exam: Present: normal inspection Back exam: Present: normal inspection, full ROM, CVA tenderness (R). Absent: CVA tenderness (L) Neurological exam: Present: alert, oriented X3, CN II-XII intact, normal gait Psychiatric exam: Present: normal affect, normal mood Skin exam: Present: warm, dry, intact, normal color. Absent: rash Course Vital Signs 04/09/17 04/09/17 04/09/17 20:48 21:39 23:32 Temperature 98.8 F 98.1 F 97.9 F Pulse Rate 109 H 100 94 Respiratory 18 18 18 Rate Blood Pressure 122/71 127/75 117/72 O2 Sat by Pulse 97 96 100 Oximetry Medical Decision Making - Medical Decision Making Patient is a 26-year-old female presents to the emergency room for evaluation of right-sided abdominal/flank pain. Mild leukocytosis. Urinalysis suspicious for urinary tract infection. Patient given 1 g of Rocephin and will be sent home with [facility]. Advised the patient to follow-up with her primary care provider in 1-2 days for reevaluation. Patient states she stands everything that was discussed with her. Return parameters discussed. Case discussed with Dr. Malik. - Lab Data Result diagrams: 04/09/17 21:25 04/09/17 21:25 Lab Results 04/09/17 04/09/17 04/09/17 Range/Units 21:06 21:06 21:25 WBC (3.8-10.6) k/uL RBC (3.80-5.40) m/uL Hgb (11.4-16.0) gm/dL Hct (34.0-46.0) % MCV (80.0-100.0) fL MCH (25.0-35.0) pg MCHC (31.0-37.0) g/dL RDW (11.5-15.5) % Plt Count (150-450) k/uL Neutrophils % % Lymphocytes % % Monocytes % % Eosinophils % % Basophils % % Neutrophils # (1.3-7.7) k/uL Lymphocytes # (1.0-4.8) k/uL Monocytes # (0-1.0) k/uL Eosinophils # (0-0.7) k/uL Basophils # (0-0.2) k/uL Sodium 139 (137-145) mmol/L Potassium 4.3 (3.5-5.1) mmol/L Chloride 102 (98-107) mmol/L Carbon Dioxide 27 (22-30) mmol/L Anion Gap 10 mmol/L BUN 4 L (7-17) mg/dL Creatinine 0.51 L (0.52-1.04) mg/dL Est GFR (MDRD) Af Amer >60 (>60 ml/min/1.73 sqM) Est GFR (MDRD) Non-Af >60 (>60 ml/min/1.73 sqM) Glucose 186 H (74-99) mg/dL Calcium 9.8 (8.4-10.2) mg/dL Total Bilirubin 0.5 (0.2-1.3) mg/dL AST 20 (14-36) U/L ALT 24 (9-52) U/L Alkaline Phosphatase 75 (38-126) U/L Total Protein 7.8 (6.3-8.2) g/dL Albumin 4.4 (3.5-5.0) g/dL Amylase 49 (30-110) U/L Lipase 50 (23-300) U/L Urine Color Light Yellow Urine Appearance Cloudy H (Clear) Urine pH 6.0 (5.0-8.0) Ur Specific Brooks 1.007 (1.001-1.035) Urine Protein 1+ H (Negative) Urine Glucose (UA) 1+ H (Negative) Urine Ketones Negative (Negative) Urine Blood Small H (Negative) Urine Nitrite Negative (Negative) Urine Bilirubin Negative (Negative) Urine Urobilinogen <2.0 (<2.0) mg/dL Ur Leukocyte Esterase Large H (Negative) Urine RBC 9 H (0-5) /hpf Urine WBC >182 H (0-5) /hpf Urine WBC Clumps Many H (None) /hpf Ur Squamous Epith Cells 1 (0-4) /hpf Urine Bacteria Few H (None) /hpf Urine HCG, Qual Not Detected (Not Detectd) 04/09/17 Range/Units 21:25 WBC 12.9 H (3.8-10.6) k/uL RBC 4.17 (3.80-5.40) m/uL Hgb 13.3 (11.4-16.0) gm/dL Hct 40.1 (34.0-46.0) % MCV 96.2 (80.0-100.0) fL MCH 31.9 (25.0-35.0) pg MCHC 33.2 (31.0-37.0) g/dL RDW 13.3 (11.5-15.5) % Plt Count 392 (150-450) k/uL Neutrophils % 76 % Lymphocytes % 18 % Monocytes % 4 % Eosinophils % 1 % Basophils % 1 % Neutrophils # 9.9 H (1.3-7.7) k/uL Lymphocytes # 2.3 (1.0-4.8) k/uL Monocytes # 0.5 (0-1.0) k/uL Eosinophils # 0.1 (0-0.7) k/uL Basophils # 0.1 (0-0.2) k/uL Sodium (137-145) mmol/L Potassium (3.5-5.1) mmol/L Chloride (98-107) mmol/L Carbon Dioxide (22-30) mmol/L Anion Gap mmol/L BUN (7-17) mg/dL Creatinine (0.52-1.04) mg/dL Est GFR (MDRD) Af Amer (>60 ml/min/1.73 sqM) Est GFR (MDRD) Non-Af (>60 ml/min/1.73 sqM) Glucose (74-99) mg/dL Calcium (8.4-10.2) mg/dL Total Bilirubin (0.2-1.3) mg/dL AST (14-36) U/L ALT (9-52) U/L Alkaline Phosphatase (38-126) U/L Total Protein (6.3-8.2) g/dL Albumin (3.5-5.0) g/dL Amylase (30-110) U/L Lipase (23-300) U/L Urine Color Urine Appearance (Clear) Urine pH (5.0-8.0) Ur Specific Brooks (1.001-1.035) Urine Protein (Negative) Urine Glucose (UA) (Negative) Urine Ketones (Negative) Urine Blood (Negative) Urine Nitrite (Negative) Urine Bilirubin (Negative) Urine Urobilinogen (<2.0) mg/dL Ur Leukocyte Esterase (Negative) Urine RBC (0-5) /hpf Urine WBC (0-5) /hpf Urine WBC Clumps (None) /hpf Ur Squamous Epith Cells (0-4) /hpf Urine Bacteria (None) /hpf Urine HCG, Qual (Not Detectd) Disposition Clinical Impression: Urinary tract infection Disposition: HOME SELF-CARE Condition: Good Instructions: Urinary Tract Infection in Women (ED) Additional Instructions: Take antibiotics as directed. Please follow up with primary care provider in 1- 2 days. If any new symptom arises or symptoms worsen, return to ER as soon as possible. Prescriptions: Ciprofloxacin HCl [Cipro] 500 mg PO Q12HR 10 Days Referrals: Jevon Julian MD [Primary Care Provider] - 1-2 days Time of Disposition: 22:09
[2017-04-09 21:59] LABS: ALT 24 U/L (9-52); AST 20 U/L (14-36); Alkaline Phosphatase 75 U/L (38-126); Amylase 49 U/L (30-110); Anion Gap 10 mmol/L; Blood Urea Nitrogen 4 mg/dL (7-17); Calcium 9.8 mg/dL (8.4-10.2); Carbon Dioxide 27 mmol/L (22-30); Chloride 102 mmol/L (98-107); Glucose 186 mg/dL (74-99); Non-African American GFR(MDRD) >60 (>60 ml/min/1.73 sqM); Potassium 4.3 mmol/L (3.5-5.1); Sodium 139 mmol/L (137-145); Total Bilirubin 0.5 mg/dL (0.2-1.3); Total Protein 7.8 g/dL (6.3-8.2)
[2017-04-09 23:33] VITALS: BP 117/72; PULSE 94; TEMP 97.9
== END 2017-04-09 23:33 | disposition home or self-care (01) ==
LOC: EC 20:43
DX: N39.0 Urinary tract infection, site not specified (principal); R10.31 Right lower quadrant pain; E11.9 Type 2 diabetes mellitus without complications; I10 Essential (primary) hypertension; Z79.4 Long term (current) use of insulin; Z79.899 Other long term (current) drug therapy; Z91.018 Allergy to other foods; Z88.8 Allergy status to other drugs, medicaments and biological substances
CPT/HCPCS: 36415; 80053; 82150; 83690; 85025; 81001; 81025; 87086; 99284; 96365; 96375 ×2; 96361; J2405; J0696; J1170; 87077; 87186